=== PATIENT | male | born 1945 | race Caucasian/White ===

== ENCOUNTER → 2016-10-31 | Outpatient (CLI) | payer BC ==
[~2016-10-31] MED LIST: ACET-1311 PO; ALBUAER19 INH; ASPI81TA28 PO; AZIT-57 PO; CLB/200 PO; CLC100 PO; CLOP1TAB15 PO; CRFL PO; DOCU100C31 PO; ESCI1TAB6 PO; IMAT1TAB PO; IPRASOL4 INH; NITR0.4S UT; PANT40TA2 PO; PRAV80TA2 PO; PRED20TA PO; RANI300T2 PO; TPRSR/100 PO
--- NOTE | 2016-10-31 08:35 | DIAGNOSTIC IMAGING REPORT ---
DOUBLE CONTRAST UPPER GI SERIES CLINICAL HISTORY: A bowel pain, bloating and dysphagia. History of duodenal stenosis status post dilatation. COMPARISON STUDY: Upper GI series September 15, 2015. FLUOROSCOPY TIME: 3.2 minutes. FINDINGS: 18 fluoroscopic images were obtained. There was mild esophageal dysmotility. No esophageal mass or stricture was identified. No hiatal hernia was identified. No reflux was elicited. Gastric fold pattern was normal. Caliber of the duodenum was normal. Contrast passed freely into the jejunum. There was possible mild narrowing of the second portion of the duodenum. IMPRESSION: 1. No esophageal mass or stricture. 2. No evidence of significant duodenal obstruction. Contrast passed freely into the jejunum. Normal gastric emptying. Possible mild narrowing of the second portion of the duodenum. 3. Mild esophageal dysmotility. Electronically signed by: Vincent Berkowitz M.D. 10/31/2016 8:33 AM
== END | disposition home or self-care (01) ==
LOC: C.RAD 07:46
PROVIDERS: ATTEND Registered Nurse
DX: K21.9 Gastro-esophageal reflux disease without esophagitis (principal); K31.5 Obstruction of duodenum; R10.13 Epigastric pain

== ENCOUNTER → 2016-11-21 | Outpatient (CLI) | payer BC ==
[~2016-11-21] MED LIST changes: -AZIT-57 PO; -PANT40TA2 PO; +PRT/40 PO; +ZTHM250 PO
[2016-11-21 10:04] LABS: BASO % 0.4 %; BASO ABS # 0.02 K/uL (0-0.2); COMPLETE YES; EOS % 10.8 %; MEAN CORPUSCULAR HEMOGLOBIN 33.7 pg (25-34); MONO % 12.7 %; NEUT % 57.1 %; PLATELET COUNT 216 K/uL (130-400); RED BLOOD COUNT 4.04 M/uL (4.7-6.1); WHITE BLOOD COUNT 4.73 K/uL (4.8-10.8)
[2016-11-21 10:20] LABS: ESTIMATED AVERAGE GLUCOSE 111 mg/dl; HA1C FLAG Normal (Normal)
--- NOTE | 2016-11-25 12:37 | CODING QUERY MEDICAL NECESSITY ---
SUPPORTING DIAGNOSIS NEEDED A supporting diagnosis is required for the test/procedure performed on this patient in order for us to be reimbursed by the patient's insurance. Please provide a supporting diagnosis for the following test/procedure listed below next to the test name along with your signature. *If there is no additional diagnosis for this patient that would support the following test/procedure please document that below next to the test/procedure. Test(s)/Procedure(s) that require a supporting diagnosis: DOS 11/21 * Hba1c DIAGNOSIS: Provider Signature: Date: Thank you [facility] Information Management Once completed, please kindly fax back to [phone] For questions please call [phone]
== END | disposition home or self-care (01) ==
LOC: C.LAB 08:53
PROVIDERS: ATTEND Family Medicine
DX: I25.10 Atherosclerotic heart disease of native coronary artery without angina pectoris (principal); R73.03 Prediabetes; C92.10 Chronic myeloid leukemia, BCR/ABL-positive, not having achieved remission

== ENCOUNTER → 2016-12-16 | Day surgery (SDC) | payer BC ==
[2016-11-29 08:27] VITALS: BMI 26.0
[~2016-12-16] VITALS: Ht 175.3 cm; Wt 81.8 kg
[~2016-12-16] MED LIST changes: -CLC100 PO; +LIDOCAINE HCL 2% 2 ML VIAL (20MG/ML) ONE; +PROPOFOL IV EMULSION 10 MG/ML 20 ML VIAL IV ONE; +SODIUM CHLORIDE 0.9% 500ML 500 ML IV ONE
[2016-12-16 09:10] VITALS: Ht 175.3 cm; Wt 81.8 kg
--- NOTE | 2016-12-16 09:46 | Endo History and Physical ---
History & Physical Date of Service: Dec 16, 2016. Chief Complaint: Duodenal stricture Referring Physician: DR. WARNER History of Present Illness 71 yo CM who presents for EGD secondary to duodenal stricture. Past Medical History Angioplasty/Stent, Arthritis, Gastrointestinal Disorder, Anxiety, Reflux, High Cholesterol, Heart Disease, Hypertension, Other, [place] Past Surgical History Hx Cardiac Surgery: Yes (HEART CATH, STENT X1) Hx Internal Defibrillator: No Hx Pacemaker: No Hx Abdominal Surgery: Yes (NEDRA) Hx of Implantable Prosthesis: No Hx Post-Op Nausea and Vomiting: No Hx Cancer Surgery: No Hx Thoracic Surgery: No Hx Orthopedic: Yes (LT KNEE SCOPE) Hx Urinary Tract Surgery: No Family History None Social History Smoking Status: Former Smoker Hx Substance Use: No Hx Alcohol Use: No Allergies Coded Allergies: Levofloxacin (Verified Adverse Reaction, Intermediate, swelling, 12/16/16) Zolpidem (Verified Adverse Reaction, Unknown, Hallucinations., 12/16/16) Current Medications Reported Home Medications Medications Dose Route/Sig Max Daily Dose Days Date Category Lexapro (Escitalopram Oxalate) 5 Mg Tab 5 Mg PO DAILY PRN 11/29/16 Reported Docusate Sodium 100 Mg Cap 1 Cap PO BID PRN 11/29/16 Reported CeleBREX (Celecoxib) 200 Mg Cap 200 Mg PO DAILY PRN 11/29/16 Reported Carafate (Sucralfate) 1 Gm/10 Ml Rebeca 10 Ml PO QID 02/13/16 Reported Imatinib Mesylate 100 Mg Tab 400 Mg PO QAM 01/01/16 Reported Tylenol (Acetaminophen) 325 Mg Tab 325-650 Mg PO UD PRN 11/28/15 Reported Plavix (Clopidogrel Bisulfate) 75 Mg Tab 75 Mg PO QAM 09/29/15 Reported Zantac (Ranitidine HCl) 300 Mg Tab 300 Mg PO HS 08/25/15 Reported Pravastatin Sodium 80 Mg Tab 80 Mg PO QAM 08/25/15 Reported Nitrostat (Nitroglycerin) 0.4 Mg Sub 0.4 Mg UT UD PRN 08/25/15 Reported Duoneb (Ipratropium-Albuterol) 3 Ml Nebu 1 Treatment INH Q4H PRN 08/25/15 Reported Metoprolol Succinate ER (Metoprolol Succinate) 100 Mg Tabcr 100 Mg PO QAM 11/04/14 Reported Pantoprazole Sodium (Pantoprazole) 40 Mg Tab 40 Mg PO BID 11/04/14 Reported Ventolin Inhaler (Albuterol) Aers 1 Puff INH Q4H PRN 03/16/13 Reported Vital Signs Weight (Kilograms): 81.82 Height (Feet): 5 Height (Inches): 9 Date Time Temp Pulse Resp B/P Pulse Ox O2 Delivery O2 Flow Rate FiO2 12/16/16 09:17 36.4 79 20 143/72 99 Room Air Physical Exam General Appearance: WD/WN, no apparent distress Respiratory/Chest: Auscultation: breath sounds normal Cardiovascular: Heart Auscultation: RRR Abdomen: Bowel Sounds: normal Inspection & Palpation: soft, non-distended, no tenderness, guarding & rebound Assessment and Plan Assessment: 71 yo CM who presents for EGD secondary to duodenal stricture. Plan: Proceed with EGD.
--- NOTE | 2016-12-16 10:16 | GI REPORT ---
Procedure Date: 12/16/2016 9:36 AM Procedure: Upper GI endoscopy Indications: For therapy of duodenal stenosis Medicines: Monitored Anesthesia Care Complications: No immediate complications. Estimated Blood Loss: Estimated blood loss: none. Procedure: Pre-Anesthesia Assessment: - Prior to the procedure, a History and Physical was performed, and patient medications and allergies were reviewed. The patient's tolerance of previous anesthesia was also reviewed. The risks and benefits of the procedure and the sedation options and risks were discussed with the patient. All questions were answered, and informed consent was obtained. Prior Anticoagulants: The patient has taken Plavix (clopidogrel), last dose was 3 days prior to procedure. ASA Grade Assessment: III - A patient with severe systemic disease. After reviewing the risks and benefits, the patient was deemed in satisfactory condition to undergo the procedure. After obtaining informed consent, the endoscope was passed under direct vision. Throughout the procedure, the patient's blood pressure, pulse, and oxygen saturations were monitored continuously. The scope was introduced through the mouth, and advanced to the third part of duodenum. The upper GI endoscopy was accomplished without difficulty. The patient tolerated the procedure well. Findings: The esophagus was normal. Localized mild inflammation characterized by erythema was found in the gastric antrum. Food (residue) was found in the first part of the duodenum. Removal of food was accomplished. An acquired benign-appearing, intrinsic severe stenosis was found at 2nd part of the duodenum and was traversed. A TTS dilator was passed through the scope. Dilation with a 12-13.5-15 mm pyloric balloon dilator was performed. The dilation site was examined and showed moderate improvement in luminal narrowing. Localized mild inflammation characterized by erythema was found in the third part of the duodenum. Biopsies were taken with a cold forceps for histology. Impression: - Normal esophagus. - Gastritis. - Retained food in the duodenum. Removal was successful. - Acquired duodenal stenosis. Dilated. - Acute duodenitis. Biopsied. Recommendation: - Resume previous diet. - Continue present medications. - Await pathology results. - Repeat the upper endoscopy PRN for retreatment. - Return to primary care physician as previously scheduled. Luis Alberto Jenkins DO 12/16/2016 10:15:40 AM This report has been signed electronically. Note Initiated On: 12/16/2016 9:36 AM I attest to the content of the Intraoperative Record and orders documented therein, exceptions below
--- NOTE | 2016-12-16 10:20 | Discharge Instructions ---
Endoscopy Patient Instructions Date / Procedure(s) Performed Dec 16, 2016. EGD Allergy Information Coded Allergies: Levofloxacin (Verified Adverse Reaction, Intermediate, swelling, 12/16/16) Zolpidem (Verified Adverse Reaction, Unknown, Hallucinations., 12/16/16) Discharge Date / Findings Dec 16, 2016. Duodentitis s/p biopsies Duodenal stricture s/p dilation Food retained in duodenum s/p removal Gastritis Medication Instructions Stopped Medication(s): PLAVIX Restart Stopped Medication(s): OK to resume all medications today as prescribed. Reported Home Medications Medications Dose Route/Sig Max Daily Dose Days Date Category Lexapro (Escitalopram Oxalate) 5 Mg Tab 5 Mg PO DAILY PRN 11/29/16 Reported Docusate Sodium 100 Mg Cap 1 Cap PO BID PRN 11/29/16 Reported CeleBREX (Celecoxib) 200 Mg Cap 200 Mg PO DAILY PRN 11/29/16 Reported Carafate (Sucralfate) 1 Gm/10 Ml Rebeca 10 Ml PO QID 02/13/16 Reported Imatinib Mesylate 100 Mg Tab 400 Mg PO QAM 01/01/16 Reported Tylenol (Acetaminophen) 325 Mg Tab 325-650 Mg PO UD PRN 11/28/15 Reported Plavix (Clopidogrel Bisulfate) 75 Mg Tab 75 Mg PO QAM 09/29/15 Reported Zantac (Ranitidine HCl) 300 Mg Tab 300 Mg PO HS 08/25/15 Reported Pravastatin Sodium 80 Mg Tab 80 Mg PO QAM 08/25/15 Reported Nitrostat (Nitroglycerin) 0.4 Mg Sub 0.4 Mg UT UD PRN 08/25/15 Reported Duoneb (Ipratropium-Albuterol) 3 Ml Nebu 1 Treatment INH Q4H PRN 08/25/15 Reported Metoprolol Succinate ER (Metoprolol Succinate) 100 Mg Tabcr 100 Mg PO QAM 11/04/14 Reported Pantoprazole Sodium (Pantoprazole) 40 Mg Tab 40 Mg PO BID 11/04/14 Reported Ventolin Inhaler (Albuterol) Aers 1 Puff INH Q4H PRN 03/16/13 Reported Provider Instructions Activity Restrictions - No exercising or heavy lifting for 24 hours. - Do not drink alcohol the day of the procedure. - Do not drive a car or operate machinery until the day after the procedure. - Do not make any important decisions or sign important papers in 24 hours after the procedure. Following Day: - Return to full activity which may include returning to work/school. Diet Start your diet with liquids and light foods (jello, soup, juice, toast). Then eat your usual diet if not nauseated. Treatment For Common After Affects For mild abdominal pain, bloating, or excessive gas: - Rest - Eat lightly - Lie on right side Follow-Up Information Follow-up with DR. WARNER as scheduled Anesthesia Information What You Should Know You have had a procedure that required some medicine to reduce anxiety and discomfort. This treatment is called moderate sedation. After receiving the treatment, you may be sleepy, but you will be able to breathe on your own. The effects of the treatment may last for several hours. Follow these instructions along with Activity/Diet recommendations noted above: * Do NOT do anything where dizziness or clumsiness would be dangerous. * Rest quietly at home today, then you can be up and about tomorrow. * Have a responsible person stay with you the rest of today. * You may have had an I.V. today. If so, you may take the dressing off later today. Recommendations Call your doctor if: * Trouble breathing * Continuous vomiting for more than 24 hours * Temperature above 101 degrees * Severe abdominal pain or bloating * Pain not relieved by pain medicine ordered * There is increased drainage or redness from any incision * A large amount of rectal bleeding greater than 2-3 tablespoons. (If you had a polyp/s removed or have hemorrhoids, a small amount of blood - from the rectum is to be expected.) * You have any unanswered questions or concerns. IN THE EVENT OF A SERIOUS EMERGENCY, GO TO THE NEAREST EMERGENCY ROOM Your discharge instructions were prepared by provider Luis Alberto Jenkins. Patient Instructions Signature Page Simon Womack Patient (or Guardian) Signature/Date: I have read and understand the instructions given to me by my caregivers. Caregiver/RN/Doctor Signature/Date: The above-named patient and/or guardian has received patient instructions on this date. + Original Patient Signature Page (only) stays with chart. Please make copy for patient.
[2016-12-16 10:41] VITALS: BP 140/82; PULSE 65; O2SAT 98
--- NOTE | 2016-12-16 11:44 | Anesthesiology Progress Note ---
Anesthesia Post Op Note Date & Time Dec 16, 2016 at 11:45 Vital Signs Pain Intensity: 0 Vital Signs Past 12 Hours Date Time Temp Pulse Resp B/P Pulse Ox O2 Delivery O2 Flow Rate FiO2 12/16/16 10:41 65 18 140/82 98 Room Air 12/16/16 10:26 70 18 123/76 98 Room Air 12/16/16 10:11 85 16 93/64 96 Room Air 12/16/16 09:17 36.4 79 20 143/72 99 Room Air Notes Mental Status: alert / awake / arousable, participated in evaluation Pt Amnestic to Procedure: Yes Nausea / Vomiting: adequately controlled Pain: adequately controlled Airway Patency, RR, SpO2: stable & adequate BP & HR: stable & adequate Hydration State: stable & adequate Anesthetic Complications: no major complications apparent
== END | disposition home or self-care (01) ==
LOC: C.GI 08:59
PROVIDERS: ATTEND Internal Medicine
DX: K31.5 Obstruction of duodenum (principal); K29.70 Gastritis, unspecified, without bleeding; K29.80 Duodenitis without bleeding; I25.10 Atherosclerotic heart disease of native coronary artery without angina pectoris; I10 Essential (primary) hypertension; J44.9 Chronic obstructive pulmonary disease, unspecified; I25.2 Old myocardial infarction; Z98.890 Other specified postprocedural states; Z90.49 Acquired absence of other specified parts of digestive tract; Z87.891 Personal history of nicotine dependence; Z68.26 Body mass index [BMI] 26.0-26.9, adult; Z79.02 Long term (current) use of antithrombotics/antiplatelets

== ENCOUNTER → 2017-01-31 | Outpatient (CLI) | payer BC ==
[~2017-01-31] MED LIST changes: -ASPI81TA28 PO; +AZIT-57 PO; -LIDOCAINE HCL 2% 2 ML VIAL (20MG/ML) ONE; +PANT40TA2 PO; -PROPOFOL IV EMULSION 10 MG/ML 20 ML VIAL IV ONE; -PRT/40 PO; -SODIUM CHLORIDE 0.9% 500ML 500 ML IV ONE; -ZTHM250 PO
[2017-01-31 10:27] LABS: CHOLESTEROL/HDL RATIO 3.3
== END | disposition home or self-care (01) ==
LOC: C.LAB 07:03
PROVIDERS: ATTEND Internal Medicine Cardiovascular Disease
DX: E78.00 Pure hypercholesterolemia, unspecified (principal)

== ENCOUNTER → 2017-02-06 | Outpatient (CLI) | payer BC ==
[2017-02-06 17:15] LABS: BASO % 0.4 %; BASO ABS # 0.03 K/uL (0-0.2); COMPLETE YES; EOS % 8.3 %; HEMATOCRIT 38.6 % (42-52); IG% 0.1 %; MEAN CELL VOLUME 101.3 fL (80-100); MEAN CORPUSCULAR HEMOGLOBIN 35.4 pg (25-34); MEAN PLATELET VOLUME 9.4 fL (7.4-10.4); MONO % 9.5 %; NEUT % 68.7 %; PLATELET COUNT 240 K/uL (130-400); RED BLOOD COUNT 3.81 M/uL (4.7-6.1); WHITE BLOOD COUNT 7.69 K/uL (4.8-10.8)
--- NOTE | 2017-02-06 17:30 | DIAGNOSTIC IMAGING REPORT ---
CHEST 2 VIEWS ROUTINE CLINICAL HISTORY: Cough and shortness of breath. COMPARISON STUDY: Chest radiograph August 24, 2016. FINDINGS: Diffuse interstitial thickening, greater within left lung, is unchanged since prior exam. This is consistent with pulmonary fibrosis. Left lung volume loss is noted. There is no pneumothorax or pleural effusion. There is no superimposed pneumonia. Moderate cardiomegaly is unchanged. IMPRESSION: 1. No change in appearance of the chest with interstitial thickening, greater within the left lung. The findings reflect pulmonary fibrosis. No superimposed consolidation. 2. Stable cardiomegaly. Electronically signed by: Vincent Berkowitz M.D. 02/06/2017 5:28 PM Dictated Date/Time: 02/06/2017 5:26 PM
[2017-02-06 17:38] LABS: BLOOD UREA NITROGEN 11 mg/dl (7-18); BUN/CREATININE RATIO 7.7 (10-20); CALCIUM 8.8 mg/dl (8.5-10.1); CARBON DIOXIDE 33 mmol/L (21-32); CHLORIDE 108 mmol/L (98-107); GLUCOSE 76 mg/dl (70-99); SODIUM 144 mmol/L (136-145)
== END | disposition home or self-care (01) ==
LOC: C.RAD 16:49
PROVIDERS: ATTEND Nurse Practitioner Family
DX: J45.901 Unspecified asthma with (acute) exacerbation (principal)

== ENCOUNTER → 2017-04-07 | Day surgery (SDC) | payer BC ==
[2017-03-03 08:48] VITALS: BMI 26.0
[~2017-04-07] VITALS: Ht 175.3 cm; Wt 81.8 kg
[~2017-04-07] MED LIST changes: +ATROPINE SULFATE 0.1 MG/ML 5ML SYR IV PRN; +EpHEDrine SULFATE INJ 50 MG/ML AMP IV PRN; +LIDOCAINE HCL 2% 2 ML VIAL (20MG/ML) ONE; +PROPOFOL IV EMULSION 10 MG/ML 20 ML VIAL IV ONE; +SODIUM CHLORIDE 0.9% 500ML 500 ML IV ONE
[2017-04-07 14:53] VITALS: TEMP 36.3; Ht 175.3 cm; Wt 81.8 kg
--- NOTE | 2017-04-07 15:18 | Endo History and Physical ---
History & Physical Date of Service: Apr 07, 2017. Chief Complaint: Pyloric stenosis Referring Physician: DR VENUS LYONS History of Present Illness 71 yo CM who presents for EGD secondary to pyloric stenosis. Past Medical History Angioplasty/Stent, Arthritis, Gastrointestinal Disorder, Anxiety, Reflux, High Cholesterol, Heart Disease, Hypertension, Other, [place] Past Surgical History Hx Cardiac Surgery: Yes (HEART CATH, STENT X1) Hx Internal Defibrillator: No Hx Pacemaker: No Hx Abdominal Surgery: Yes (NEDRA) Hx of Implantable Prosthesis: No Hx Post-Op Nausea and Vomiting: No Hx Cancer Surgery: No Hx Thoracic Surgery: No Hx Orthopedic: Yes (LT KNEE SCOPE) Hx Urinary Tract Surgery: No Family History None Social History Smoking Status: Former Smoker Hx Substance Use: No Hx Alcohol Use: No Allergies Coded Allergies: Levofloxacin (Verified Adverse Reaction, Intermediate, swelling, 04/07/17) Zolpidem (Verified Adverse Reaction, Unknown, Hallucinations., 04/07/17) Current Medications Reported Home Medications Medications Dose Route/Sig Max Daily Dose Days Date Category Lexapro (Escitalopram Oxalate) 5 Mg Tab 5 Mg PO DAILY PRN 11/29/16 Reported Docusate Sodium 100 Mg Cap 1 Cap PO BID PRN 11/29/16 Reported CeleBREX (Celecoxib) 200 Mg Cap 200 Mg PO DAILY PRN 11/29/16 Reported Carafate (Sucralfate) 1 Gm/10 Ml Rebeca 10 Ml PO QID 02/13/16 Reported Imatinib Mesylate 100 Mg Tab 400 Mg PO QAM 01/01/16 Reported Tylenol (Acetaminophen) 325 Mg Tab 325-650 Mg PO UD PRN 11/28/15 Reported Plavix (Clopidogrel Bisulfate) 75 Mg Tab 75 Mg PO QAM 09/29/15 Reported Zantac (Ranitidine HCl) 300 Mg Tab 300 Mg PO HS 08/25/15 Reported Pravastatin Sodium 80 Mg Tab 80 Mg PO QAM 08/25/15 Reported Nitrostat (Nitroglycerin) 0.4 Mg Sub 0.4 Mg UT UD PRN 08/25/15 Reported Duoneb (Ipratropium-Albuterol) 3 Ml Nebu 1 Treatment INH Q4H PRN 08/25/15 Reported Metoprolol Succinate ER (Metoprolol Succinate) 100 Mg Tabcr 100 Mg PO QAM 11/04/14 Reported Pantoprazole Sodium (Pantoprazole) 40 Mg Tab 40 Mg PO BID 11/04/14 Reported Ventolin Inhaler (Albuterol) Aers 1 Puff INH Q4H PRN 03/16/13 Reported Vital Signs Weight (Kilograms): 81.82 Height (Feet): 5 Height (Inches): 9 Date Time Temp Pulse Resp B/P (MAP) Pulse Ox O2 Delivery O2 Flow Rate FiO2 04/07/17 15:08 70 20 94/43 (60) 95 04/07/17 14:53 36.3 62 20 141/83 (102) 95 Physical Exam General Appearance: WD/WN, no apparent distress Respiratory/Chest: Auscultation: breath sounds normal Cardiovascular: Heart Auscultation: RRR Abdomen: Bowel Sounds: normal Inspection & Palpation: soft, non-distended, no tenderness, guarding & rebound Assessment and Plan Assessment: 71 yo CM who presents for EGD secondary to pyloric stenosis. Plan: Proceed with EGD.
--- NOTE | 2017-04-07 16:35 | Discharge Instructions ---
Endoscopy Patient Instructions Date / Procedure(s) Performed Apr 07, 2017. EGD Allergy Information Coded Allergies: Levofloxacin (Verified Adverse Reaction, Intermediate, swelling, 04/07/17) Zolpidem (Verified Adverse Reaction, Unknown, Hallucinations., 04/07/17) Discharge Date / Findings Apr 07, 2017. Duodenal stricture s/p dilation Hiatal hernia Medication Instructions OK to resume all medications today as prescribed Medications Dose Route/Sig Max Daily Dose Days Date Category Lexapro (Escitalopram Oxalate) 5 Mg Tab 5 Mg PO DAILY PRN 11/29/16 Reported Docusate Sodium 100 Mg Cap 1 Cap PO BID PRN 11/29/16 Reported CeleBREX (Celecoxib) 200 Mg Cap 200 Mg PO DAILY PRN 11/29/16 Reported Carafate (Sucralfate) 1 Gm/10 Ml Rebeca 10 Ml PO QID 02/13/16 Reported Imatinib Mesylate 100 Mg Tab 400 Mg PO QAM 01/01/16 Reported Tylenol (Acetaminophen) 325 Mg Tab 325-650 Mg PO UD PRN 11/28/15 Reported Plavix (Clopidogrel Bisulfate) 75 Mg Tab 75 Mg PO QAM 09/29/15 Reported Zantac (Ranitidine HCl) 300 Mg Tab 300 Mg PO HS 08/25/15 Reported Pravastatin Sodium 80 Mg Tab 80 Mg PO QAM 08/25/15 Reported Nitrostat (Nitroglycerin) 0.4 Mg Sub 0.4 Mg UT UD PRN 08/25/15 Reported Duoneb (Ipratropium-Albuterol) 3 Ml Nebu 1 Treatment INH Q4H PRN 08/25/15 Reported Metoprolol Succinate ER (Metoprolol Succinate) 100 Mg Tabcr 100 Mg PO QAM 11/04/14 Reported Pantoprazole Sodium (Pantoprazole) 40 Mg Tab 40 Mg PO BID 11/04/14 Reported Ventolin Inhaler (Albuterol) Aers 1 Puff INH Q4H PRN 03/16/13 Reported Provider Instructions Activity Restrictions - No exercising or heavy lifting for 24 hours. - Do not drink alcohol the day of the procedure. - Do not drive a car or operate machinery until the day after the procedure. - Do not make any important decisions or sign important papers in 24 hours after the procedure. Following Day: - Return to full activity which may include returning to work/school. Diet Start your diet with liquids and light foods (jello, soup, juice, toast). Then eat your usual diet if not nauseated. Treatment For Common After Affects For mild abdominal pain, bloating, or excessive gas: - Rest - Eat lightly - Lie on right side Follow-Up Information Follow-up with DR VENUS LYONS as scheduled Anesthesia Information What You Should Know You have had a procedure that required some medicine to reduce anxiety and discomfort. This treatment is called moderate sedation. After receiving the treatment, you may be sleepy, but you will be able to breathe on your own. The effects of the treatment may last for several hours. Follow these instructions along with Activity/Diet recommendations noted above: * Do NOT do anything where dizziness or clumsiness would be dangerous. * Rest quietly at home today, then you can be up and about tomorrow. * Have a responsible person stay with you the rest of today. * You may have had an I.V. today. If so, you may take the dressing off later today. Recommendations Call your doctor if: * Trouble breathing * Continuous vomiting for more than 24 hours * Temperature above 101 degrees * Severe abdominal pain or bloating * Pain not relieved by pain medicine ordered * There is increased drainage or redness from any incision * A large amount of rectal bleeding greater than 2-3 tablespoons. (If you had a polyp/s removed or have hemorrhoids, a small amount of blood - from the rectum is to be expected.) * You have any unanswered questions or concerns. IN THE EVENT OF A SERIOUS EMERGENCY, GO TO THE NEAREST EMERGENCY ROOM Your discharge instructions were prepared by provider Luis Alberto Jenkins. Patient Instructions Signature Page Simon Womack Patient (or Guardian) Signature/Date: I have read and understand the instructions given to me by my caregivers. Caregiver/RN/Doctor Signature/Date: The above-named patient and/or guardian has received patient instructions on this date. + Original Patient Signature Page (only) stays with chart. Please make copy for patient.
--- NOTE | 2017-04-07 16:38 | GI REPORT ---
Procedure Date: 04/07/2017 3:57 PM Procedure: Upper GI endoscopy Indications: For therapy of duodenal stenosis Medicines: Monitored Anesthesia Care Complications: No immediate complications. Estimated Blood Loss: Estimated blood loss: none. Procedure: Pre-Anesthesia Assessment: - Prior to the procedure, a History and Physical was performed, and patient medications and allergies were reviewed. The patient's tolerance of previous anesthesia was also reviewed. The risks and benefits of the procedure and the sedation options and risks were discussed with the patient. All questions were answered, and informed consent was obtained. Prior Anticoagulants: The patient has taken Plavix (clopidogrel), last dose was 1 day prior to procedure. ASA Grade Assessment: III - A patient with severe systemic disease. After reviewing the risks and benefits, the patient was deemed in satisfactory condition to undergo the procedure. After obtaining informed consent, the endoscope was passed under direct vision. Throughout the procedure, the patient's blood pressure, pulse, and oxygen saturations were monitored continuously. The Scope was introduced through the anus and advanced to the second part of duodenum. After obtaining informed consent, the endoscope was passed under direct vision. Throughout the procedure, the patient's blood pressure, pulse, and oxygen saturations were monitored continuously. The upper GI endoscopy was accomplished without difficulty. The patient tolerated the procedure well. Findings: The esophagus was normal. A small hiatus hernia was present. An acquired benign-appearing, intrinsic moderate stenosis was found in the first part of the duodenum and was traversed. A TTS dilator was passed through the scope. Dilation with a 12-13.5-15 mm and a 15-16.5-18 mm pyloric balloon dilator was performed. The dilation site was examined and showed moderate improvement in luminal narrowing. Impression: - Normal esophagus. - Small hiatus hernia. - Acquired duodenal stenosis. Dilated. - No specimens collected. Recommendation: - Resume previous diet. - Continue present medications. - Repeat the upper endoscopy PRN for retreatment. - Return to primary care physician as previously scheduled. Luis Alberto Jenkins DO 04/07/2017 4:37:53 PM This report has been signed electronically. Note Initiated On: 04/07/2017 3:57 PM I attest to the content of the Intraoperative Record and orders documented therein, exceptions below
[2017-04-07 16:47] VITALS: BP 130/80; PULSE 58; O2SAT 97
--- NOTE | 2017-04-07 16:56 | Anesthesiology Progress Note ---
Anesthesia Post Op Note Date & Time Apr 07, 2017 at 16:56 Vital Signs Pain Intensity: 0 Vital Signs Past 12 Hours Date Time Temp Pulse Resp B/P (MAP) Pulse Ox O2 Delivery O2 Flow Rate FiO2 04/07/17 16:47 58 20 130/80 (97) 97 Room Air 04/07/17 16:38 72 20 118/79 (92) 98 Room Air 04/07/17 16:32 73 20 107/76 (86) 97 Room Air 04/07/17 15:08 70 20 94/43 (60) 95 04/07/17 14:53 36.3 62 20 141/83 (102) 95 Notes Mental Status: alert / awake / arousable, participated in evaluation Pt Amnestic to Procedure: Yes Nausea / Vomiting: adequately controlled Pain: adequately controlled Airway Patency, RR, SpO2: stable & adequate BP & HR: stable & adequate Hydration State: stable & adequate Anesthetic Complications: no major complications apparent
== END | disposition home or self-care (01) ==
LOC: C.GI 14:34
PROVIDERS: ATTEND Internal Medicine
DX: K31.5 Obstruction of duodenum (principal); K31.1 Adult hypertrophic pyloric stenosis; K44.9 Diaphragmatic hernia without obstruction or gangrene; J44.9 Chronic obstructive pulmonary disease, unspecified; I10 Essential (primary) hypertension; Z98.890 Other specified postprocedural states; E78.00 Pure hypercholesterolemia, unspecified; K21.9 Gastro-esophageal reflux disease without esophagitis; I25.2 Old myocardial infarction; Z87.891 Personal history of nicotine dependence; Z90.49 Acquired absence of other specified parts of digestive tract; Z88.1 Allergy status to other antibiotic agents; Z79.02 Long term (current) use of antithrombotics/antiplatelets; Z79.899 Other long term (current) drug therapy

== ENCOUNTER → 2017-05-26 | Outpatient (CLI) | payer BC ==
[~2017-05-26] MED LIST changes: -ATROPINE SULFATE 0.1 MG/ML 5ML SYR IV PRN; -AZIT-57 PO; -EpHEDrine SULFATE INJ 50 MG/ML AMP IV PRN; -LIDOCAINE HCL 2% 2 ML VIAL (20MG/ML) ONE; -PANT40TA2 PO; -PROPOFOL IV EMULSION 10 MG/ML 20 ML VIAL IV ONE; +PRT/40 PO; -SODIUM CHLORIDE 0.9% 500ML 500 ML IV ONE; +ZTHM250 PO
[2017-05-26 09:31] LABS: BASO % 0.3 %; BASO ABS # 0.02 K/uL (0-0.2); COMPLETE YES; EOS % 9.7 %; HEMATOCRIT 41.8 % (42-52); IG% 0.2 %; LYMPH % 12.6 %; LYMPH ABS # 0.75 K/uL (1.2-3.4); MEAN CELL VOLUME 97.7 fL (80-100); MEAN CORPUSCULAR HEMOGLOBIN 31.8 pg (25-34); MEAN CORPUSCULAR HGB CONC 32.5 g/dl (32-36); MEAN PLATELET VOLUME 10.1 fL (7.4-10.4); MONO % 9.4 %; NEUT % 67.8 %; PLATELET COUNT 275 K/uL (130-400); RED BLOOD COUNT 4.28 M/uL (4.7-6.1); WHITE BLOOD COUNT 5.95 K/uL (4.8-10.8)
[2017-05-26 09:41] LABS: ALT/SGPT 29 U/L (12-78); AST/SGOT 20 U/L (15-37); BLOOD UREA NITROGEN 11 mg/dl (7-18); BUN/CREATININE RATIO 8.7 (10-20); CALCIUM 8.9 mg/dl (8.5-10.1); CARBON DIOXIDE 32 mmol/L (21-32); CHLORIDE 105 mmol/L (98-107); GLUCOSE 94 mg/dl (70-99); MAGNESIUM 1.9 mg/dl (1.8-2.4); POTASSIUM 4.9 mmol/L (3.5-5.1); SODIUM 140 mmol/L (136-145)
[2017-05-26 09:45] LABS: ALB/GLOB RATIO 1.1 (0.9-2); ALKALINE PHOSPHATASE 76 U/L (45-117); CHOLESTEROL 126 mg/dl (0-200); CHOLESTEROL/HDL RATIO 3.6; HDL CHOLESTEROL 35 mg/dl; LDL CHOLESTEROL CALCULATED 58 mg/dl; TRIGLYCERIDES 167 mg/dl (0-150); VERY LOW DENSITY LIPOPROT CALC 33 mg/dl
[2017-05-26 09:58] LABS: ESTIMATED AVERAGE GLUCOSE 111 mg/dl; HA1C FLAG Normal (Normal)
--- NOTE | 2017-06-16 09:43 | CODING QUERY MEDICAL NECESSITY ---
SUPPORTING DIAGNOSIS NEEDED Dr. Jefferson, A supporting diagnosis is required for the test/procedure performed on this patient in order for us to be reimbursed by the patient's insurance. Please provide a supporting diagnosis for the following test/procedure listed below next to the test name along with your signature. *If there is no additional diagnosis for this patient that would support the following test/procedure please document that below next to the test/procedure. Test(s)/Procedure(s) that require a supporting diagnosis: * [id number] GLYCATED HEMOGLOBIN DIAGNOSIS: DATE OF SERVICE: 05/26/17 Provider Signature: Date: Thank you Clifford Davidson [facility] Information Management Once completed, please kindly fax back to [phone] For questions please call [phone]
== END | disposition home or self-care (01) ==
LOC: C.LAB 06:56
PROVIDERS: ATTEND Family Medicine
DX: I10 Essential (primary) hypertension (principal); R73.03 Prediabetes

== ENCOUNTER 2017-07-04 16:00 | Emergency (ER) | payer BC ==
[~2017-07-04] VITALS: Ht 175.3 cm; Wt 75.8 kg
[~2017-07-04 16:00] MED LIST changes: -PRED20TA PO; -ZTHM250 PO
[2017-07-04 16:09] VITALS: TEMP 36.4; Ht 175.3 cm; Wt 75.8 kg
[2017-07-04] MEDS ORDERED: SODIUM CHLORIDE 0.9% 1000ML 1,000 ML IV STA (16:50)
--- NOTE | 2017-07-04 16:58 | EMERGENCY ROOM VISIT NOTE ---
History Report prepared by Estelaibraphael: Julianne Kelly Under the Supervision of: Dr. Manjinder Hogan M.D. First contact with patient: 16:46 Chief Complaint: OTHER COMPLAINT Stated Complaint: CHEST CONGESTION,RUNNY NOSE,COUGH,SNEEZING History of Present Illness The patient is a 71 year old male who presents to the Emergency Room with complaints of worsening chest congestion and tightness beginning three days ago. 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 He also notes shortness of breath, runny nose, cough and watery eyes. He denies any fever or nausea. The patient has taken Sudafed with no relief. The patient was told to come to the ED by his PCP. The patient has episodes like this often and is usually put on prednisone and a antibiotic. Source of History: patient Onset: 3 days ago Position: chest Timing: worsening Associated Symptoms: + cough, + SOB, No fevers, No nausea Note: Pt notes runny nose and watery eyes. Review of Systems See HPI for pertinent positives and negatives. A total of ten systems were reviewed and were otherwise negative. 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 Family History FHx: heart disease Social History Smoking Status: Never Smoker Alcohol Use: none Drug Use: none Marital Status: single, Housing Status: lives with family Occupation Status: unemployed, retired Current/Historical Medications Scheduled Azithromycin (Azithromycin), 1 TAB PO DAILY Clopidogrel (Plavix), 75 MG PO QAM Metoprolol Succinate (Metoprolol Succinate ER), 100 MG PO QAM Pantoprazole (Pantoprazole Sodium), 40 MG PO BID Pravastatin Sodium (Pravastatin Sodium), 80 MG PO QAM Prednisone (Prednisone), 3 TAB PO DAILY Ranitidine (Zantac), 300 MG PO HS Sucralfate (Carafate), 10 ML PO QID Scheduled PRN Acetaminophen (Tylenol), 325-650 MG PO UD PRN for Pain or Fever Albuterol Inhaler (Ventolin Inhaler), 1 PUFF INH Q4H PRN for SOB/Wheezing Celecoxib (CeleBREX), 200 MG PO DAILY PRN for Pain Docusate Sodium (Docusate Sodium), 1 CAP PO BID PRN for Constipation Escitalopram Oxalate (Lexapro), 5 MG PO DAILY PRN for Anxiety Ipratropium-Albuterol (Duoneb), 1 TREATMENT INH Q4H PRN for Wheezing Nitroglycerin (Nitrostat), 0.4 MG UT UD PRN for Chest Pain Allergies Coded Allergies: Levofloxacin (Verified Adverse Reaction, Intermediate, swelling, 07/04/17) Zolpidem (Verified Adverse Reaction, Unknown, Hallucinations., 07/04/17) Physical Exam Vital Signs Date Time Temp Pulse Resp B/P (MAP) Pulse Ox O2 Delivery O2 Flow Rate FiO2 07/04/17 19:25 77 20 114/87 94 07/04/17 18:34 74 20 108/67 96 Room Air 07/04/17 17:32 96 07/04/17 17:29 63 20 95 Room Air 07/04/17 17:26 61 07/04/17 16:09 36.4 97 20 121/68 95 Room Air Physical Exam GENERAL: Awake, alert, well-appearing, in no distress HENT: Normocephalic, atraumatic. Oropharynx unremarkable. Dry MM. EYES: Normal conjunctiva. Sclera non-icteric. NECK: Supple. No nuchal rigidity. FROM. No JVD. RESPIRATORY: Diffuse wheezing, diminished breath sounds at bases. CARDIAC: Regular rate, normal rhythm. Extremities warm and well perfused. Pulses equal. ABDOMEN: Soft, non-distended. No tenderness to palpation. No rebound or guarding. No masses. RECTAL: Deferred. MUSCULOSKELETAL: Chest examination reveals no tenderness. The back is symmetrical on inspection without obvious abnormality. There is no CVA tenderness to palpation. No joint edema. LOWER EXTREMITIES: Calves are equal size bilaterally and non-tender. No edema. No discoloration. NEURO: Normal sensorium. No sensory or motor deficits noted. SKIN: No rash or jaundice noted. Medical Decision & Procedures ER Provider Diagnostic Interpretation: Radiology results as stated below per my review and radiologist interpretation: CHEST ONE VIEW PORTABLE FINDINGS: No evidence for an acute or interval process. Diffuse left hemithoracic and to lesser extent upper right lung parenchymal fibrotic changes similar. Chronic elevation left hemidiaphragm. IMPRESSION: Chronic asymmetric parenchymal fibrosis. No acute process. No change from the prior exam. The above report was generated using voice recognition software. It may contain grammatical, syntax or spelling errors. Electronically signed by: Fred Franklin M.D. Laboratory Results 07/04/17 17:25 Red Blood Count 4.20, Mean Corpuscular Volume 98.8, Mean Corpuscular Hemoglobin 31.4, Mean Corpuscular Hemoglobin Concent 31.8, Mean Platelet Volume 9.5, Neutrophils (%) (Auto) 65.0, Lymphocytes (%) (Auto) 13.7, Monocytes (%) (Auto) 11.6, Eosinophils (%) (Auto) 8.5, Basophils (%) (Auto) 0.9, Neutrophils # (Auto ) 4.98, Lymphocytes # (Auto) 1.05, Monocytes # (Auto) 0.89, Eosinophils # (Auto ) 0.65, Basophils # (Auto) 0.07 07/04/17 17:25 Test 07/04/17 17:25 White Blood Count 7.66 K/uL (4.8-10.8) Red Blood Count 4.20 M/uL (4.7-6.1) Hemoglobin 13.2 g/dL (14.0-18.0) Hematocrit 41.5 % (42-52) Mean Corpuscular Volume 98.8 fL (80-100) Mean Corpuscular Hemoglobin 31.4 pg (25-34) Mean Corpuscular Hemoglobin Concent 31.8 g/dl (32-36) Platelet Count 278 K/uL (130-400) Mean Platelet Volume 9.5 fL (7.4-10.4) Neutrophils (%) (Auto) 65.0 % Lymphocytes (%) (Auto) 13.7 % Monocytes (%) (Auto) 11.6 % Eosinophils (%) (Auto) 8.5 % Basophils (%) (Auto) 0.9 % Neutrophils # (Auto) 4.98 K/uL (1.4-6.5) Lymphocytes # (Auto) 1.05 K/uL (1.2-3.4) Monocytes # (Auto) 0.89 K/uL (0.11-0.59) Eosinophils # (Auto) 0.65 K/uL (0-0.5) Basophils # (Auto) 0.07 K/uL (0-0.2) RDW Standard Deviation 54.9 fL (36.4-46.3) RDW Coefficient of Variation 15.1 % (11.5-14.5) Immature Granulocyte % (Auto) 0.3 % Immature Granulocyte # (Auto) 0.02 K/uL (0.00-0.02) Anion Gap 2.0 mmol/L (3-11) Est Creatinine Clear Calc Drug Dose 52.9 ml/min Estimated GFR () 64.1 Estimated GFR (Non- 55.3 BUN/Creatinine Ratio 8.1 (10-20) Calcium Level 8.2 mg/dl (8.5-10.1) Troponin I < 0.015 ng/ml (0-0.045) Pro-B-Type Natriuretic Peptide 490 pg/ml (0-900) Laboratory results reviewed by me Medications Administered Medications (Trade) Dose Ordered Sig/Sophy Route Start Time Stop Time Status Last Admin Dose Admin Albuterol/ Ipratropium (Duoneb) 12 ml ONE ONCE INH 07/04/17 17:00 07/04/17 17:01 DC 07/04/17 17:25 12 ML Prednisone (PredniSONE TAB) 60 mg NOW STAT PO 07/04/17 16:50 07/04/17 16:55 DC 07/04/17 17:18 60 MG Azithromycin (Zithromax Tab) 500 mg NOW ONCE PO 07/04/17 17:00 07/04/17 17:01 DC 07/04/17 17:17 500 MG Sodium Chloride 1,000 ml @ 999 mls/hr Q1H1M STAT IV 07/04/17 16:50 07/04/17 17:50 DC 07/04/17 17:21 999 MLS/HR ECG Indication: chest pain Rate (beats per minute): 59 Rhythm: sinus bradycardia Findings: RBBB, no acute ischemic change Comparison ECG Date: 02/13/16 Change: no significant change ED Course 1648: The patient was evaluated in room C8. A complete history and physical exam was performed. 1650: Sodium Chloride 1000 ml @ 999 mls/hr IV, Prednisone 60 mg PO. 1700: Azithromycin 500 mg PO, Duoneb 12 ml INH. 1813: I reevaluated the patient he is feeling better and is penitentiary through nebulizer. Medical Decision I reviewed the patient's past medical history, medications, and the nursing notes as described above. Differential diagnosis: COPD exacerbation, pneumonia, bronchitis, ACS, CHF, and PE. The patient is a71yo gentleman with a pmhx of Silicosis/COPD who presents to the ED with worsening cough and congestion per HPI. On arrival the patient in in NAD, AFVSS. 95% RA. On exam has diminished BS with scattered wheezes. CXR and EKG unremarkable. Trop negative in the setting of several days of constant sx. No JVD or LE edema. BNP wnl. Labs otherwise, unremarkable including wbc wnl. Patient was given duo neb, steroids and azithro and reported significant improvement and requesting d/c. Patient with improved air movement. Medication Reconcilliation Current Medication List: was personally reviewed by me Blood Pressure Screening Patient's blood pressure: Normal blood pressure Impression Primary Impression: COPD exacerbation Scribe Attestation The scribe's documentation has been prepared under my direction and personally reviewed by me in its entirety. I confirm that the note above accurately reflects all work, treatment, procedures, and medical decision making performed by me. Departure Information Dispostion Home / Self-Care Prescriptions Prednisone (Prednisone) 20 Mg Tab 3 TAB PO DAILY for 4 Days, #12 TAB FOR 4 DAYS Prov: Manjinder Hogan M.D. 07/04/17 Azithromycin (Azithromycin) 250 Mg Tab 1 TAB PO DAILY for 4 Days, #4 TABS Prov: Manjinder Hogan M.D. 07/04/17 Referrals Lenora Jefferson DO (PCP) Patient Instructions COPD N[facility], [facility] Additional Instructions Please follow up with your primary care physician in the next 1-3 days for reevaluation. You likely are having an exacerbation of your COPD. Otherwise, your exam, EKG, chest x-ray, lab results did not show signs of an emergent condition at this time. Take prednisone and azithromycin as directed. Take your home inhalers every 4 hours for the next 2 days and as needed thereafter. Return to the emergency department for worsening symptoms as described in the accompanying instructions.
[2017-07-04] MEDS ORDERED: ALBUT/IPRATROP 3MG/0.5MG NEB 3 ML VIAL INH ONE (17:00)
[2017-07-04] MEDS ORDERED: AZITHROMYCIN 250 MG TAB PO ONE (17:00)
--- NOTE | 2017-07-04 17:17 | DIAGNOSTIC IMAGING REPORT ---
CHEST ONE VIEW PORTABLE CLINICAL HISTORY: CHEST PAIN dyspnea COMPARISON STUDY: 02/06/2017 FINDINGS: No evidence for an acute or interval process. Diffuse left hemithoracic and to lesser extent upper right lung parenchymal fibrotic changes similar. Chronic elevation left hemidiaphragm. IMPRESSION: Chronic asymmetric parenchymal fibrosis. No acute process. No change from the prior exam. The above report was generated using voice recognition software. It may contain grammatical, syntax or spelling errors. Electronically signed by: Fred Franklin M.D. 07/04/2017 5:16 PM Dictated Date/Time: 07/04/2017 5:15 PM
[2017-07-04 17:29] VITALS: PULSE 63; O2SAT 95
[2017-07-04 17:32] VITALS: O2SAT 96
[2017-07-04 17:36] LABS: BASO % 0.9 %; BASO ABS # 0.07 K/uL (0-0.2); COMPLETE YES; EOS % 8.5 %; HEMATOCRIT 41.5 % (42-52); IG% 0.3 %; LYMPH % 13.7 %; LYMPH ABS # 1.05 K/uL (1.2-3.4); MEAN CELL VOLUME 98.8 fL (80-100); MEAN CORPUSCULAR HEMOGLOBIN 31.4 pg (25-34); MEAN CORPUSCULAR HGB CONC 31.8 g/dl (32-36); MEAN PLATELET VOLUME 9.5 fL (7.4-10.4); MONO % 11.6 %; PLATELET COUNT 278 K/uL (130-400); WHITE BLOOD COUNT 7.66 K/uL (4.8-10.8)
[2017-07-04 18:01] LABS: BLOOD UREA NITROGEN 11 mg/dl (7-18); BUN/CREATININE RATIO 8.1 (10-20); CALCIUM 8.2 mg/dl (8.5-10.1); CARBON DIOXIDE 31 mmol/L (21-32); CHLORIDE 109 mmol/L (98-107); GLUCOSE 105 mg/dl (70-99); POTASSIUM 3.9 mmol/L (3.5-5.1); SODIUM 142 mmol/L (136-145)
[2017-07-04] MEDS ORDERED: PRED20TA PO (19:10)
[2017-07-04] MEDS ORDERED: ZTHM250 PO (19:10)
[2017-07-04 19:25] VITALS: BP 114/87; PULSE 77; O2SAT 94
== END 2017-07-04 19:24 | disposition home or self-care (01) ==
LOC: C.EDB 16:01 → C.EDC 19:24
DX: J44.9 Chronic obstructive pulmonary disease, unspecified (principal); I21.3 ST elevation (STEMI) myocardial infarction of unspecified site; C91.10 Chronic lymphocytic leukemia of B-cell type not having achieved remission; K21.9 Gastro-esophageal reflux disease without esophagitis; E78.5 Hyperlipidemia, unspecified; I10 Essential (primary) hypertension; Z82.49 Family history of ischemic heart disease and other diseases of the circulatory system

== ENCOUNTER → 2017-11-26 | Outpatient (CLI) | payer BC ==
[~2017-11-26] MED LIST changes: +AZIT-57 PO; -IMAT1TAB PO; +PANT40TA2 PO; -PRT/40 PO
--- NOTE | 2017-11-26 15:33 | DIAGNOSTIC IMAGING REPORT ---
CHEST 2 VIEWS ROUTINE CLINICAL HISTORY: J45.901 Asthmatic bronchitis with [id number] COMPARISON STUDY: 07/04/2017 FINDINGS: The cardiac and mediastinal contours remain stable. There is left lung volume loss. There is extensive interstitial pulmonary fibrotic change left greater than right, similar to the preceding study[ IMPRESSION: Stable bilateral pulmonary fibrosis. Stable left lung volume loss. Electronically signed by: Wyatt Webber M.D. 11/26/2017 3:32 PM Dictated Date/Time: 11/26/2017 3:31 PM
== END | disposition home or self-care (01) ==
LOC: C.RAD1850 15:24
PROVIDERS: ATTEND Nurse Practitioner Family
DX: J45.901 Unspecified asthma with (acute) exacerbation (principal)

== ENCOUNTER 2018-02-15 17:15 | Inpatient (IN) | payer BC, OTHER ==
[~2018-02-15] VITALS: Ht 175.3 cm; Wt 77.8 kg
[2018-02-15] MEDS ORDERED: ASPIRIN 81 MG CHEW PO STA (17:37)
[2018-02-15] MEDS ORDERED: ALUMINUM/MAGNESIUM SUSP 30 ML UDC PO STA (17:37)
--- NOTE | 2018-02-15 17:48 | DIAGNOSTIC IMAGING REPORT ---
CHEST ONE VIEW PORTABLE CLINICAL HISTORY: CHEST PAIN dyspnea COMPARISON STUDY: 11/26/2017 FINDINGS: Moderate stable cardiomegaly. Diffuse bilateral pulmonary fibrosis. Mild chronic elevation left hemidiaphragm. No well-defined superimposed infiltrate. IMPRESSION: 1. Stable cardiomegaly. 2. Diffuse left and to a lesser extent right hemithoracic chronic parenchymal fibrosis. 3. No superimposed infiltrate The above report was generated using voice recognition software. It may contain grammatical, syntax or spelling errors. Electronically signed by: Fred Franklin M.D. 02/15/2018 5:47 PM Dictated Date/Time: 02/15/2018 5:46 PM
[2018-02-15 18:07] LABS: BASO % 3.9 %; BASO ABS # 0.39 K/uL (0-0.2); HEMATOCRIT 43.1 % (42-52); HEMOGLOBIN 14.7 g/dL (14.0-18.0); IG# 0.04 K/uL (0.00-0.02); LYMPH % 9.4 %; LYMPH ABS # 0.94 K/uL (1.2-3.4); MEAN CELL VOLUME 95.1 fL (80-100); MEAN CORPUSCULAR HEMOGLOBIN 32.5 pg (25-34); MEAN CORPUSCULAR HGB CONC 34.1 g/dl (32-36); MONO % 10.5 %; MONO ABS # 1.06 K/uL (0.11-0.59); NEUT % 69.8 %; NEUT ABS # 7.02 K/uL (1.4-6.5); PLATELET COUNT 318 K/uL (130-400); RED CELL DISTRIBUTION WIDTH CV 14.2 % (11.5-14.5); RED CELL DISTRIBUTION WIDTH SD 49.5 fL (36.4-46.3); WHITE BLOOD COUNT 10.05 K/uL (4.8-10.8)
[2018-02-15] MEDS ORDERED: PLV75 PO (18:09)
[2018-02-15] MEDS ORDERED: SNG10 PO (18:09)
[2018-02-15] MEDS ORDERED: SUCR1TAB PO (18:09)
[2018-02-15] MEDS ORDERED: CELE1CAP30 PO (18:09)
[2018-02-15] MEDS ORDERED: AZEL0.1S2 NAE (18:09)
[2018-02-15] MEDS ORDERED: FLUO10CA24 PO (18:09)
[2018-02-15] MEDS ORDERED: IPRA1AER2 INH (18:09)
[2018-02-15] MEDS ORDERED: RANI300T PO (18:09)
[2018-02-15] MEDS ORDERED: SYMIN160 INH (18:09)
[2018-02-15] MEDS ORDERED: VNTHFA/IN INH (18:11)
[2018-02-15] MEDS ORDERED: OXGN (18:15)
[2018-02-15 18:41] LABS: ALBUMIN 4.1 gm/dl (3.4-5.0); ALKALINE PHOSPHATASE 82 U/L (45-117); ALT/SGPT 35 U/L (12-78); AST/SGOT 31 U/L (15-37); BLOOD UREA NITROGEN 14 mg/dl (7-18); CALCIUM 8.7 mg/dl (8.5-10.1); CARBON DIOXIDE 29 mmol/L (21-32); CKMB 2.2 ng/ml (0.5-3.6); CREATININE 1.53 mg/dl (0.60-1.40); GLUCOSE 88 mg/dl (70-99); LIPASE 163 U/L (73-393); POTASSIUM 3.8 mmol/L (3.5-5.1); SODIUM 142 mmol/L (136-145)
[2018-02-15 19:11] LABS: INR 1.1 (0.9-1.1); PTT PATIENT 26.6 SECONDS (21.0-31.0)
--- NOTE | 2018-02-15 19:40 | EMERGENCY ROOM VISIT NOTE ---
History Report prepared by Dk: Vanessa Marcos Under the Supervision of: Dr. Torsten Ibanez D.O. First contact with patient: 17:33 Chief Complaint: CHEST PAIN Stated Complaint: REALLY BAD CHEST PAINS,SOB Nursing Triage Summary: Constant substernal CP 08/05 x2 weeks. PT was raking leaves today and the pain got increasingly sharp. Took one nitro and used his oxygen which helped, but CP is still there. Follows with Dr. Hansen but has not seen him in 7 months. Did not go to PCP about CP because he thought it was his lungs. Supposed to use oxygen all the time, does not use. Supposed to take ASA daily but did not take today. Is under a lot of stress currently with issues with grandchildren. History of Present Illness The patient is a 72 year old male who presents to the Emergency Room with complaints of persistent chest pain that has been worsening in the last 10 days. He reports that he saw his lung doctor about 10 days ago, who told him that his COPD and silicosis were worsening. Because of his test findings, the patient was placed on oxygen at home. Since then, he has been experiencing centralized chest pain that worsens with exertion. He reports that the pain does not go away, but the severity decreases when he lays down, takes an Aspirin , and drinks some water. He notes that his breathing has worsened and that he has been short of breath. The patient states that he has abdominal pain, but denies any swelling in his legs. He reports a history of ulcers and leukemia. Source of History: patient Onset: about 10 days Position: chest Quality: other (chest pain) Timing: other (persistent) Modifying Factors (Worsening): exertion Modifying Factors (Relieving): other (laying down, Aspirin, and water) Associated Symptoms: + SOB, + abdominal pain Note: Patient denies: swelling in legs. Review of Systems See HPI for pertinent positives & negatives. A total of 10 systems reviewed and were otherwise negative. Past Medical & Surgical Medical Problems: (1) ACUTE MYOCARD INFARCT,UNSPEC SITE,INITIAL EPISODE (2) Acute on chronic respiratory failure with hypoxia (3) Cholecystectomy (4) CLL (chronic lymphocytic leukemia) (5) Diverticulitis (6) Enteritis (7) ESOPHAGEAL REFLUX (8) HYPERLIPIDEMIA NEC/NOS (9) HYPERTENSION NOS (10) MITRAL VALVE DISORDER (11) Pneumonia (12) Sepsis (13) Silicosis Family History FHx: heart disease Social History Smoking Status: Never Smoker Alcohol Use: none Drug Use: none Marital Status: single, Housing Status: lives with family Occupation Status: unemployed, retired Current/Historical Medications Scheduled Azelastine HCl (Azelastine Hydrochloride), 2 SPRAYS TAVO BID Budesonide/Formoterol Fumarate (Symbicort 160/4.5 Inhaler), 2 PUFFS INH BID Clopidogrel Bisulfate (Clopidogrel), 75 MG PO QAM Fluoxetine HCl (Fluoxetine HCl), 10 MG PO QAM Home O2 Therapy (Oxygen), 2 LITERS NA CONTINOUS Ipratropium-Albuterol (Combivent Respimat), 1 PUFF INH QID Metoprolol Succinate (Metoprolol Succinate ER), 100 MG PO QAM Montelukast Sod (Montelukast Sodium), 10 MG PO QAM Pantoprazole (Pantoprazole Sodium), 80 MG PO QAM Pravastatin Sodium (Pravastatin Sodium), 80 MG PO QAM Ranitidine Hcl (Zantac), 300 MG PO HS Sucralfate (Sucralfate), 1 GM PO ACHS Scheduled PRN Albuterol Hfa (Ventolin Hfa), 2 PUFFS INH Q4H PRN for SOB/Wheezing Celecoxib (Celecoxib), 200 MG PO DAILY PRN for Pain Ipratropium-Albuterol (Duoneb), 1 TREATMENT INH Q4H PRN for Wheezing Nitroglycerin (Nitrostat), 0.4 MG UT UD PRN for Chest Pain Allergies Coded Allergies: Levofloxacin (Verified Adverse Reaction, Intermediate, swelling, 07/04/17) Zolpidem (Verified Adverse Reaction, Unknown, Hallucinations., 07/04/17) Physical Exam Vital Signs Date Time Temp Pulse Resp B/P (MAP) Pulse Ox O2 Delivery O2 Flow Rate FiO2 02/15/18 19:17 66 18 130/85 98 Nasal Cannula 2.0 02/15/18 18:45 62 22 100 02/15/18 18:15 64 29 99 02/15/18 18:02 63 02/15/18 17:55 98 Nasal Cannula 2.0 02/15/18 17:34 95 Nasal Cannula 2.0 02/15/18 17:33 95 Nasal Cannula 2.0 02/15/18 17:21 85 Room Air 02/15/18 17:21 36.5 75 24 167/90 87 Room Air Physical Exam GENERAL: Patient is awake, alert, and in no acute distress. Patient is resting comfortably and showing no signs of anxiety EYES: The conjunctivae are clear. The pupils are round and reactive. EARS, NOSE, MOUTH AND THROAT: The nose is without any evidence of any deformity. Mucous membranes are moist tongue is midline NECK: The neck is nontender and supple. RESPIRATORY: Lung sounds diminished throughout with rales noted. No tachypnea or conversational dyspnea noted. CARDIOVASCULAR: Regular rate and rhythm noted there no murmurs rubs or gallops normal S1 normal S2 GASTROINTESTINAL: The abdomen is soft. Bowel sounds are present in all quadrants. Abdomen is nontender PELVIS: The Pelvis is stable. No tenderness to palpation is noted. BACK: No midline tenderness or or step-off noted range of motion in flexion extension as well as rotation no signs of muscle spasm noted MUSCULOSKELETAL/EXTREMITIES: There is no evidence of gross deformity full range of motion is noted in the hips and shoulders SKIN: There is no obvious evidence of any rash. There are no petechiae, pallor or cyanosis noted. NEUROLOGIC: Patient is awake alert and oriented x3 Medical Decision & Procedures ER Provider Diagnostic Interpretation: Radiology results as stated below per my review and radiologist interpretation: CHEST ONE VIEW PORTABLE CLINICAL HISTORY: CHEST PAIN dyspnea COMPARISON STUDY: 11/26/2017 FINDINGS: Moderate stable cardiomegaly. Diffuse bilateral pulmonary fibrosis. Mild chronic elevation left hemidiaphragm. No well-defined superimposed infiltrate. IMPRESSION: 1. Stable cardiomegaly. 2. Diffuse left and to a lesser extent right hemithoracic chronic parenchymal fibrosis. 3. No superimposed infiltrate The above report was generated using voice recognition software. It may contain grammatical, syntax or spelling errors. Electronically signed by: Fred Franklin M.D. 02/15/2018 5:47 PM Dictated Date/Time: 02/15/2018 5:46 PM Laboratory Results Test 02/15/18 17:53 02/15/18 18:51 Total Bilirubin 0.7 mg/dl (0.2-1) Direct Bilirubin mg/dl (0-0.2) Aspartate Amino Transf (AST/SGOT) 31 U/L (15-37) Alanine Aminotransferase (ALT/SGPT) 35 U/L (12-78) Alkaline Phosphatase 82 U/L (45-117) Total Protein 8.0 gm/dl (6.4-8.2) Albumin 4.1 gm/dl (3.4-5.0) Lipase 163 U/L (73-393) Prothrombin Time 11.3 SECONDS (9.0-12.0) Prothromb Time International Ratio 1.1 (0.9-1.1) Activated Partial Thromboplast Time 26.6 SECONDS (21.0-31.0) Partial Thromboplastin Ratio 1.0 Medications Administered Medications (Trade) Dose Ordered Sig/Sophy Route Start Time Stop Time Status Last Admin Dose Admin Aspirin (Aspirin Chew) 324 mg NOW STAT PO 02/15/18 17:37 02/15/18 17:38 DC 02/15/18 17:37 324 MG Al Hydroxide/Mg Hydroxide (Maalox Susp) 30 ml NOW STAT PO 02/15/18 17:37 02/15/18 17:38 DC 02/15/18 17:37 30 ML ECG Per My Interpretation Indication: chest pain Rate (beats per minute): 77 Rhythm: normal sinus Findings: RBBB, other (no PVC's noted) Change: no significant change (07/04/17) ED Course 1733: The patient was evaluated in room C8. A complete history and physical examination were performed. 1736: Ordered Aspirin 324mg PO and Maalox Susp 30ml PO. 1909: I discussed the patient's case with Dr. Swenson, [facility] hospitalist. The patient will be evaluated for further management. 1912: I reevaluated the patient, who was resting. I updated him on test findings and the treatment plan. He verbalized complete agreement and understanding. Medical Decision Prior records/ancillary studies reviewed. Triage Nursing notes reviewed. The patient's history was concerning for chest pain. Differential diagnosis: Etiologies such as cardiac ischemia, aortic dissection, pulmonary embolism, pneumonia, pneumothorax, musculoskeletal, infections, pericarditis, myocarditis , esophageal rupture, gastrointestinal, as well as others were entertained. The patient is a 72-year-old male who presented to the emergency department for an evaluation of chest discomfort. The patient describes substernal chest discomfort which was related to exertion. The patient's noted worsening chest discomfort especially with ambulation. The patient was raking leaves today and noticed worsening of his pain. For this reason he came to the emergency department. I discussed the patient's laboratory and radiographic studies with him. He was treated with aspirin in the emergency department. I discussed the limitations of the emergency department workup for chest pain with him but given his description of his pain as well as exertional component I discussed his case with the on-call [facility] hospitalist. They have agreed to evaluate the patient in the emergency department for further management and disposition. Medication Reconcilliation Current Medication List: was personally reviewed by me Blood Pressure Screening Patient's blood pressure: Normal blood pressure Blood pressure disposition: Did not require urgent referral Consults Time Called: 1909 Consulting Physician: [facility] hospitalist Returned Call: 1909 I discussed the patient's case with [facility] hospitalist. The patient will be evaluated for further management. Impression Primary Impression: Chest pain, exertional Scribe Attestation The scribe's documentation has been prepared under my direction and personally reviewed by me in its entirety. I confirm that the note above accurately reflects all work, treatment, procedures, and medical decision making performed by me. Departure Information Dispostion Being Evaluated By Hospitalist Referrals Lenora Jefferson DO (PCP) Forms Call Back Authorization, HOME CARE DOCUMENTATION FORM, IMPORTANT VISIT INFORMATION Patient Instructions My [facility]
--- NOTE | 2018-02-15 19:57 | History and Physical ---
History & Physical Date & Time of Service: Feb 15, 2018 at 19:56 Chief Complaint: Really Bad Chest Pains,Sob Primary Care Physician: Lenroa Jefferson DO History of Present Illness Source: patient, hospital records The patient is a 72-year-old male with a known past medical history including silicosis, acute [place], CLL and pneumonia, who presents to the emergency department with 10 days of worsening shortness of breath despite use of oxygen at home and home nebulizers. He had been seen by his restaurant cook Dr. Carrillo's assistance 10 days ago, and failed a walking pulse oximetry test, and was started on nasal cannula oxygen at home at that time. He reports that he continues to have significant dyspnea on exertion and exertional chest pain with less and less physical activity. He also does have some occasional epigastric discomfort, and has a known history of peptic ulcer disease. He has not had any recent travels or sick exposures that he is aware of. Past Medical/Surgical History Medical Problems: (1) Abdominal pain (2) ACUTE MYOCARD INFARCT,UNSPEC SITE,INITIAL EPISODE (3) Chest pain (4) Chest pain, atypical (5) Cholecystectomy (6) CLL (chronic lymphocytic leukemia) (7) Colitis (8) COPD (chronic obstructive pulmonary disease) (9) COPD exacerbation (10) Diverticulitis (11) Enteritis (12) ESOPHAGEAL REFLUX (13) Gastric out let obstruction (14) HYPERLIPIDEMIA NEC/NOS (15) HYPERTENSION NOS (16) Hypoxia (17) Ileus (18) Influenza A (19) Left knee pain (20) Low back pain with sciatica (21) Low back pain with sciatica (22) MITRAL VALVE DISORDER (23) Pneumonia (24) Pneumonia (25) Pneumonia (26) Precordial chest pain (27) Right sided abdominal pain (28) Sepsis (29) Silicosis Family History FHx: heart disease Social History Smoking Status: Never Smoker Smokeless Tobacco Use: No Alcohol Use: none Drug Use: none Marital Status: single, Housing status: lives with family Occupational Status: unemployed, retired Immunizations History of Influenza Vaccine: N/A Influenza Vaccine Date: Aug 03, 2009 History of Tetanus Vaccine?: Yes Tetanus Immunization Date: Apr 03, 2004 History of Pneumococcal: Yes Pneumococcal Date: Aug 03, 2007 History of Hepatitis B Vaccine: No Allergies Coded Allergies: Levofloxacin (Verified Adverse Reaction, Intermediate, swelling, 07/04/17) Zolpidem (Verified Adverse Reaction, Unknown, Hallucinations., 07/04/17) Home Medications Scheduled Azelastine HCl (Azelastine Hydrochloride), 2 SPRAYS TAVO BID Budesonide/Formoterol Fumarate (Symbicort 160/4.5 Inhaler), 2 PUFFS INH BID Clopidogrel Bisulfate (Clopidogrel), 75 MG PO QAM Fluoxetine HCl (Fluoxetine HCl), 10 MG PO QAM Home O2 Therapy (Oxygen), 2 LITERS NA CONTINOUS Ipratropium-Albuterol (Combivent Respimat), 1 PUFF INH QID Metoprolol Succinate (Metoprolol Succinate ER), 100 MG PO QAM Montelukast Sod (Montelukast Sodium), 10 MG PO QAM Pantoprazole (Pantoprazole Sodium), 80 MG PO QAM Pravastatin Sodium (Pravastatin Sodium), 80 MG PO QAM Ranitidine Hcl (Zantac), 300 MG PO HS Sucralfate (Sucralfate), 1 GM PO ACHS Scheduled PRN Albuterol Hfa (Ventolin Hfa), 2 PUFFS INH Q4H PRN for SOB/Wheezing Celecoxib (Celecoxib), 200 MG PO DAILY PRN for Pain Ipratropium-Albuterol (Duoneb), 1 TREATMENT INH Q4H PRN for Wheezing Nitroglycerin (Nitrostat), 0.4 MG UT UD PRN for Chest Pain Review of Systems The patient denies palpitations, lower extremity swelling, sore throat, fevers, chills, sweats, nausea, vomiting, diarrhea , constipation, abdominal pain, pelvic pain, blood in urine or stool, dysuria, urinary frequency or urgency, lightheadedness , dizziness, headache, memory loss, loss of consciousness, rash, abnormal bruising or bleeding, imbalance, focal or generalized weakness, numbness or tingling in arms or legs, back or neck pain, or night sweats. The review of systems is otherwise negative other than for that already noted above, and at least 10 systems have been reviewed. Physical Exam Vital Signs Date Time Temp Pulse Resp B/P (MAP) Pulse Ox O2 Delivery O2 Flow Rate FiO2 02/15/18 19:17 66 18 130/85 98 Room Air 02/15/18 18:45 62 22 100 02/15/18 18:15 64 29 99 02/15/18 18:02 63 02/15/18 17:55 98 Nasal Cannula 2.0 02/15/18 17:34 95 Nasal Cannula 2.0 02/15/18 17:33 95 Nasal Cannula 2.0 02/15/18 17:21 85 Room Air 02/15/18 17:21 36.5 75 24 167/90 87 Room Air The patient is awake, alert and oriented 3, normocephalic and atraumatic, has had weight loss since I last saw him one year ago, lying in bed and in no acute distress. HEENT--PERRL, EOMI, mucous membranes and oropharynx dry. Neck--supple. No JVD. No bruits. Thyroid normal, trachea midline, no adenopathy. Heart--normal S1 and S2. No murmurs, rubs or gallops. Lungs--dry crackles at the bases to two thirds the way up bilaterally. Abdomen--normal bowel sounds and soft. Nontender. Nondistended, no hernias or masses, no organomegaly. Extremities--no cyanosis or clubbing. No edema. There are good distal pulses b/ l. Dermatologic--normal skin turgor, normal color, no abnormal lymph nodes, no rash. Neurologic--cranial nerves II through XII grossly intact. Rheumatologic--normal range of motion. Psychiatric--normal affect. Diagnostics Laboratory Results Results Past 24 Hours Test 02/15/18 17:53 02/15/18 18:51 Range/Units White Blood Count 10.05 4.8-10.8 K/uL Red Blood Count 4.53 4.7-6.1 M/uL Hemoglobin 14.7 14.0-18.0 g/dL Hematocrit 43.1 42-52 % Mean Corpuscular Volume 95.1 80-100 fL Mean Corpuscular Hemoglobin 32.5 25-34 pg Mean Corpuscular Hemoglobin Concent 34.1 32-36 g/dl Platelet Count 318 130-400 K/uL Mean Platelet Volume 10.0 7.4-10.4 fL Neutrophils (%) (Auto) 69.8 % Lymphocytes (%) (Auto) 9.4 % Monocytes (%) (Auto) 10.5 % Eosinophils (%) (Auto) 6.0 % Basophils (%) (Auto) 3.9 % Neutrophils # (Auto) 7.02 1.4-6.5 K/uL Lymphocytes # (Auto) 0.94 1.2-3.4 K/uL Monocytes # (Auto) 1.06 0.11-0.59 K/uL Eosinophils # (Auto) 0.60 0-0.5 K/uL Basophils # (Auto) 0.39 0-0.2 K/uL RDW Standard Deviation 49.5 36.4-46.3 fL RDW Coefficient of Variation 14.2 11.5-14.5 % Immature Granulocyte % (Auto) 0.4 % Immature Granulocyte # (Auto) 0.04 0.00-0.02 K/uL Sodium Level 142 136-145 mmol/L Potassium Level 3.8 3.5-5.1 mmol/L Chloride Level 107 98-107 mmol/L Carbon Dioxide Level 29 21-32 mmol/L Anion Gap 6.0 3-11 mmol/L Blood Urea Nitrogen 14 7-18 mg/dl Creatinine 1.53 0.60-1.40 mg/dl Est Creatinine Clear Calc Drug Dose 44.3 ml/min Estimated GFR () 52.3 Estimated GFR (Non- 45.1 BUN/Creatinine Ratio 9.0 10-20 Random Glucose 88 70-99 mg/dl Calcium Level 8.7 8.5-10.1 mg/dl Total Bilirubin 0.7 0.2-1 mg/dl Direct Bilirubin 0-0.2 mg/dl Aspartate Amino Transf (AST/SGOT) 31 15-37 U/L Alanine Aminotransferase (ALT/SGPT) 35 12-78 U/L Alkaline Phosphatase 82 45-117 U/L Total Creatine Kinase 192 39-308 U/L Creatine Kinase MB 2.2 0.5-3.6 ng/ml Creatine Kinase MB Ratio 1.1 0-3.0 Troponin I < 0.015 0-0.045 ng/ml Total Protein 8.0 6.4-8.2 gm/dl Albumin 4.1 3.4-5.0 gm/dl Lipase 163 73-393 U/L Prothrombin Time 11.3 9.0-12.0 SECONDS Prothromb Time International Ratio 1.1 0.9-1.1 Activated Partial Thromboplast Time 26.6 21.0-31.0 SECONDS Partial Thromboplastin Ratio 1.0 Diagnostic Radiology Patient Name: JOSÉ BARAJAS Unit Number: [id number] Dictated: 02/15/181745 Transcribed: 02/15/181745 MS Printed Date/Time: [~ rep prt dt]/[~ rep prt tm] [~ rep ct labl] - [~ rep ct ivnm] [facility] [place] [address] Dictated: 02/15/181745 Transcribed: 02/15/181745 MS Printed Date/Time: [~ rep prt dt]/[~ rep prt tm] [~ rep ct labl] - [~ rep ct ivnm] CHEST ONE VIEW PORTABLE CLINICAL HISTORY: CHEST PAIN dyspnea COMPARISON STUDY: 11/26/2017 FINDINGS: Moderate stable cardiomegaly. Diffuse bilateral pulmonary fibrosis. Mild chronic elevation left hemidiaphragm. No well-defined superimposed infiltrate. IMPRESSION: 1. Stable cardiomegaly. 2. Diffuse left and to a lesser extent right hemithoracic chronic parenchymal fibrosis. 3. No superimposed infiltrate The above report was generated using voice recognition software. It may contain grammatical, syntax or spelling errors. Electronically signed by: Fred Franklin M.D. 02/15/2018 5:47 PM Dictated Date/Time: 02/15/2018 5:46 PM The status of this report is Signed. Draft = Not yet reviewed or approved by Radiologist. Signed = Reviewed and approved by Radiologist. <AttendingPhy></AttendingPhy> <FamilyPhy>Lenora Jefferson DO</FamilyPhy> < PrimaryPhy>Lenora Jefferson DO</PrimaryPhy> <UnitNumber>[id number]</UnitNumber > <VisitNumber>[id number]</VisitNumber> <PatientName>BARAJASJOSÉ JR</ PatientName> <DateOfBirth>1945</DateOfBirth> <Location>[facility]</Location> < ServiceDate>02/15/18</ServiceDate> <MNE>ESINDI</MNE> <OrderingPhy>Torsten Ibanez D.O.</OrderingPhy> <OrderingPhyMNE>f rep ord dr mne</OrderingPhyMNE> <DictatingPhyMNE>f rep dict dr flowers</DictatingPhyMNE> <CCListMNE>f rep ct mne</ CCListMNE> <AdmittingPhyMNE>f pt admit dr flowers</AdmittingPhyMNE> <AttendingPhyMNE >f pt attend dr flowers</AttendingPhyMNE> <ConsultingPhyMNE>f pt consult dr flowers</ConsultingPhyMNE> <FamilyPhyMNE>f pt fam dr flowers</FamilyPhyMNE> <OtherPhyMNE>f pt other dr flowers</OtherPhyMNE> < PrimaryPhyMNE>f pt prim care dr flowers</PrimaryPhyMNE> <ReferringPhyMNE>f pt referring dr flowers</ReferringPhyMNE> Patient Name: JOSÉ BARAJAS JR Unit Number: [id number] Dictated: 02/15/182043 Transcribed: 02/15/182043 MS Printed Date/Time: [~ rep prt dt]/[~ rep prt tm] [~ rep ct labl] - [~ rep ct ivnm] [facility] Radiology Department [place] [id number] Dictated: 02/15/182043 Transcribed: 02/15/182043 MS Printed Date/Time: [~ rep prt dt]/[~ rep prt tm] [~ rep ct labl] - [~ rep ct ivnm] (CHEST) THORAX WITHOUT CT DOSE: 237.35 mGy.cm HISTORY: Dyspnea hypoxia, sob TECHNIQUE: Multiaxial CT images of the chest were performed without contrast. A dose lowering technique was utilized adhering to the principles of ALARA. COMPARISON: 02/05/2016 FINDINGS: Diffuse bilateral parenchymal fibrosis and interstitial change. This is more prominent on the left as compared to the right but all findings appear to be identical compared to the prior exam. There is no superimposed infiltrate. There are findings of mild stable cardia megaly. There is moderate prominence of the central pulmonary vasculature. These findings are chronic. IMPRESSION: Chronic parenchymal fibrosis. No superimposed infiltrate. Mild stable cardiomegaly. The above report was generated using voice recognition software. It may contain grammatical, syntax or spelling errors. Electronically signed by: Fred Franklin M.D. 02/15/2018 8:47 PM Dictated Date/Time: 02/15/2018 8:44 PM The status of this report is Signed. Draft = Not yet reviewed or approved by Radiologist. Signed = Reviewed and approved by Radiologist. <AttendingPhy></AttendingPhy> <FamilyPhy>Lenora Jefferson, DO</FamilyPhy> < PrimaryPhy>Lenora Jefferson, DO</PrimaryPhy> <UnitNumber>[id number]</UnitNumber > <VisitNumber>[id number]</VisitNumber> <PatientName>JOSÉ BARAJAS JR</ PatientName> <DateOfBirth>1945</DateOfBirth> <Location>[facility]</Location> < ServiceDate>02/15/18</ServiceDate> <MNE>ESINDI</MNE> <OrderingPhy>Hu Swenson M.D.</OrderingPhy> <OrderingPhyMNE>f rep ord dr flowers</OrderingPhyMNE> < DictatingPhyMNE>f rep dict dr flowers</DictatingPhyMNE> <CCListMNE>f rep ct mne</ CCListMNE> <AdmittingPhyMNE>f pt admit dr flowers</AdmittingPhyMNE> <AttendingPhyMNE >f pt attend dr flowers</AttendingPhyMNE> <ConsultingPhyMNE>f pt consult dr flowers</ConsultingPhyMNE> <FamilyPhyMNE>f pt fam dr flowers</FamilyPhyMNE> <OtherPhyMNE>f pt other dr flowers</OtherPhyMNE> < PrimaryPhyMNE>f pt prim care dr flowers</PrimaryPhyMNE> <ReferringPhyMNE>f pt referring dr flowers</ReferringPhyMNE> EKG JOSÉ ID:[id number] 15-FEB-2018 17:19:55 [facility] Normal sinus rhythm Possible Left atrial enlargement Right bundle branch block Left ventricular hypertrophy Inferior infarct (cited on or before 09-NOV-2014) Abnormal ECG When compared with ECG of 04-JUL-2017 16:10, ST now depressed in Anterior leads Inverted T waves have replaced nonspecific T wave abnormality in Anterior leads 25mm/s 10mm/mV 150Hz 8.0 SP2 12SL 241 TYSHAWN: 13 Referred by: ED Unconfirmed Vent. rate 77 BPM MS interval 208 ms QRS duration 130 ms QT/QTc 412/466 ms P-R-T axes 62 -21 -7 1945 (72 yr) Male 75in 1lb Room: Loc: Cross Tie Tram Loader:Amari Segovia Test ind: Impression Assessment and Plan Acute on chronic respiratory failure with hypoxia/silicosis-- Both chest x-ray and CT of chest confirmed chronic parenchymal fibrosis with no superimposed infiltrate. Ceftriaxone 1 g IV given while in the ED. Place on levofloxacin 500 mg IV every 24 hours. Solu-Medrol 40 mg IV every 8 hours Guaifenesin extended release 600 mg by mouth twice a day Xopenex/Atovent nebs q6hwa and q2h prn Nasal cannula 2 L of oxygen titrating to keep pulse ox greater than or equal to 92%. We will consult his restaurant cook Dr. Carrillo. CAD/hypertension/history of acute [place]-- The patient will be admitted to telemetry for serial cardiac enzymes, serial EKG's, cardiac rhythm monitoring and a 2-D echocardiogram with Dopplers. Continue clopidogrel 75 mg every morning, metoprolol succinate ER 100 mg every morning changed to 50 mg p.o. twice daily with hold parameters. GERD/PUD-- Continue pantoprazole 40 mg p.o. twice daily, ranitidine 300 mg at bedtime and Carafate 10 mils p.o. 4 times daily. Hyperlipidemia-- Continue pravastatin 80 mg p.o. every morning. Advanced Directives Existing Advance Directive: No Existing Living Will: No Existing Power of Travel Med Surg Rn: No Resuscitation Status VTE Prophylaxis Will order VTE Prophylaxis: Yes Social Service Consult None Apply
[2018-02-15] MEDS ORDERED: ACETAMINOPHEN 325 MG TAB PO PRN (20:00)
[2018-02-15] MEDS ORDERED: NITROGLYCERIN 0.4 MG SL PER TAB CHARGE UT PRN (20:00)
[2018-02-15] MEDS ORDERED: ONDANSETRON INJ 2 MG/ML 2 ML VIAL IV PRN (20:00)
[2018-02-15] MEDS ORDERED: POLYETHYLENE (MIRALAX) 17 GM PACK PO PRN (20:00)
[2018-02-15] MEDS ORDERED: MAGNESIUM HYDROXIDE SUSP 30 ML UDC PO PRN (20:00)
[2018-02-15] MEDS ORDERED: ALUMINUM/MAGNESIUM/SIMETH (MAALOX MAX) 30 ML UDC PO PRN (20:00)
--- NOTE | 2018-02-15 20:49 | DIAGNOSTIC IMAGING REPORT ---
(CHEST) THORAX WITHOUT CT DOSE: 237.35 mGy.cm HISTORY: Dyspnea hypoxia, sob TECHNIQUE: Multiaxial CT images of the chest were performed without contrast. A dose lowering technique was utilized adhering to the principles of ALARA. COMPARISON: 02/05/2016 FINDINGS: Diffuse bilateral parenchymal fibrosis and interstitial change. This is more prominent on the left as compared to the right but all findings appear to be identical compared to the prior exam. There is no superimposed infiltrate. There are findings of mild stable cardia megaly. There is moderate prominence of the central pulmonary vasculature. These findings are chronic. IMPRESSION: Chronic parenchymal fibrosis. No superimposed infiltrate. Mild stable cardiomegaly. The above report was generated using voice recognition software. It may contain grammatical, syntax or spelling errors. Electronically signed by: Fred Franklin M.D. 02/15/2018 8:47 PM Dictated Date/Time: 02/15/2018 8:44 PM
[2018-02-15] MEDS ORDERED: LEVALBUTEROL/IPRATROPIUM NEB INH SCH (21:00)
[2018-02-15 21:19] VITALS: BP 120/81; PULSE 67; TEMP 36.8; Ht 175.3 cm; Wt 77.8 kg
[2018-02-15] MEDS ORDERED: IPRATROPIUM BROMIDE NEB SOLN 0.02% 2.5 ML VIAL INH PRN (21:45)
[2018-02-15] MEDS ORDERED: LEVALBUTEROL 1.25MG/0.5ML NEB INH PRN (21:45)
[2018-02-15] MEDS ORDERED: CEFTRIAXONE SOD INJ 1 GM in DEXTROSE 5% ADD-VANTAGE 50ML 50 ML IV SCH (22:00)
[2018-02-15] MEDS ORDERED: NSS + 20MEQ KCL 1000ML 1,000 ML IV SCH (22:00)
[2018-02-15] MEDS: METHYLPREDNISOLONE IV 40 MG in SYRINGE 0 ML IV SCH (22:07)
[2018-02-15] MEDS: GUAIFENESIN 600 MG TABCR PO SCH (22:08)
[2018-02-15] MEDS: SUCRALFATE 1 GM TAB PO SCH (22:09)
[2018-02-15] MEDS: RANITIDINE HCL 150 MG TAB PO SCH (22:09)
[2018-02-15] MEDS: HEPARIN SOD 5000 UNIT/0.5 ML CARP SQ SCH (22:11)
[2018-02-16] VITALS (9 sets, daily range): BP systolic 104–147; BP diastolic 48–77; PULSE 54–87; TEMP 36.5–37; O2SAT 94–98
[2018-02-16] MEDS: IPRATROPIUM BROMIDE NEB SOLN 0.02% 2.5 ML VIAL INH SCH ×4 (03:00→19:33)
[2018-02-16] MEDS: LEVALBUTEROL 1.25MG/0.5ML NEB INH SCH ×4 (03:00→19:33)
[2018-02-16] MEDS: METHYLPREDNISOLONE IV 40 MG in SYRINGE 0 ML IV SCH ×2 (04:13→21:04)
[2018-02-16 04:22] LABS: BASO % 3.6 %; BASO ABS # 0.26 K/uL (0-0.2); EOS % 1.4 %; HEMATOCRIT 38.9 % (42-52); HEMOGLOBIN 12.6 g/dL (14.0-18.0); IG# 0.03 K/uL (0.00-0.02); LYMPH % 7.6 %; LYMPH ABS # 0.55 K/uL (1.2-3.4); MEAN CELL VOLUME 95.8 fL (80-100); MEAN CORPUSCULAR HGB CONC 32.4 g/dl (32-36); MEAN PLATELET VOLUME 10.1 fL (7.4-10.4); MONO % 1.2 %; MONO ABS # 0.09 K/uL (0.11-0.59); NEUT % 85.8 %; NEUT ABS # 6.19 K/uL (1.4-6.5); PLATELET COUNT 272 K/uL (130-400); RED CELL DISTRIBUTION WIDTH CV 14.2 % (11.5-14.5); RED CELL DISTRIBUTION WIDTH SD 49.7 fL (36.4-46.3); WHITE BLOOD COUNT 7.22 K/uL (4.8-10.8)
[2018-02-16 04:48] LABS: BLOOD UREA NITROGEN 14 mg/dl (7-18); CALCIUM 8.2 mg/dl (8.5-10.1); CARBON DIOXIDE 27 mmol/L (21-32); CREATININE 1.43 mg/dl (0.60-1.40); GLUCOSE 151 mg/dl (70-99); POTASSIUM 4.5 mmol/L (3.5-5.1); SODIUM 140 mmol/L (136-145)
[2018-02-16 04:53] LABS: CKMB 1.8 ng/ml (0.5-3.6)
[2018-02-16] MEDS: BUDESONIDE 0.5 MG/2 ML VIAL (PULMICORT) INH SCH ×3 (07:13→19:36)
[2018-02-16] MEDS: AZELASTINE~ORDER AWAITING ACTION SCH ×3 (08:00→16:00)
[2018-02-16] MEDS ORDERED: NURSING VERBAL MED ORDER ONE (10:15)
--- NOTE | 2018-02-16 10:23 | PULMONARY CONSULTATION ---
DATE OF CONSULTATION: 02/16/2018 TIME: 9:25 a.m. REPORT OF CONSULTATION: The patient was seen in room 240, bed 2. 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 He also has had chronic elevation of the left hemidiaphragm. In the relatively recent past, he was prescribed for home oxygen because his oxygen levels desaturated very quickly. He states that they have gotten him portable oxygen tanks and they are trying to get him a portable concentrator. I do not believe he has used the oxygen too much at home, but he was vague about this. He states he was not told how often to wear it. The patient relates that for the past 10 days to 2 weeks, he has had chest pains with exertion. He describes the pain as being in the left upper anterior chest and that it radiates at times to his neck. There has been no left arm or shoulder pain. The pain is always precipitated by exertion. He does relate that he brought some mulch at a store. They loaded it for him, but when he was unloading his car, he had chest pain and shortness of breath carrying the 40-pound bags. He also has noticed pain with raking his yard. The patient admits to being short of breath walking from one room in his house to another. I then asked him if it was not obvious that getting short winded from one room to another, he probably should not be carrying 40-pound bags. He did agree with this. He does have a prior history of coronary artery disease and a prior MT. He has had a stent previously. He follows up with Dr. Hansen. He tells me that he had a stress test less than a year ago that was okay. He states he also has some type of valve problem. The patient had an evaluation at [facility] about 3 years ago. He was told that he had silicosis. 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 He had to wear a mask. He states that cough mass and also respirators. He worked there for 17 years from approximately 1974 to 1992 or thereabouts. 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 He has been retired since 2009. PAST SURGICAL HISTORY: 1. Knee arthroscopy. 2. Cardiac stent. 3. Cholecystectomy. PAST MEDICAL HISTORY: 1. Coronary artery disease. 2. Hypertension. 3. Hyperlipidemia. 4. MT. 5. CML. 6. Pyloric stenosis. 7. GERD. 8. Valvular heart disease. SOCIAL HISTORY: Tobacco: He states he smoked for only 1 or 2 years when he was young. Alcohol use is denied. ALLERGIES: AMBIEN AND LEVAQUIN. FAMILY HISTORY: Mother , age 88, heart disease and lung cancer. Father , age 60, lung cancer. MEDICATIONS AT HOME: 1. Ventolin HFA. 2. Azelastine nasal spray. 3. Symbicort 160/4.5 two puffs b.i.d. 4. Celecoxib 200 mg p.r.n. 5. Clopidogrel 75 mg daily. 6. Fluoxetine 10 mg daily. 7. Home O2. 8. Neb treatments with ipratropium, albuterol - the patient states he has not taken for a long time because he was given inhalers. 8. Metoprolol 100 mg daily. 9. Montelukast 10 mg daily. 10. Nitro p.r.n. 11. Pantoprazole 40 mg daily. 12. Pravastatin 80 mg daily. 13. Ranitidine 300 mg at bedtime. 14. Sucralfate 1 g a.c. and at bedtime. 15. Combivent Respimat - told to me by the patient, but not listed on the reconciliation of medicines. REVIEW OF SYSTEMS: The patient's energy level is fair. He denies any difficulty swallowing. He has had a weight loss in the past year or two. How much is unknown. The remainder of review of systems is otherwise negative. Ten systems reviewed. PHYSICAL EXAMINATION: GENERAL: The patient is a 72-year-old male who was cooperative, alert and oriented. He looks totally comfortable at rest. He is actually breathing faster than normal, but it is very subtle. VITAL SIGNS: Temperature is 36.6. HEENT: Pupils were reactive. Nares were clear. Mouth exam showed elongation of the uvula. When asked, he did admit that his tells him that he snores. Teeth are in suboptimal repair. NECK: Palpation of the neck reveals no lymph nodes. CARDIAC: Rate is 57 per minute. The rhythm is regular. Blood pressure 118/68. LUNGS: Auscultation of the lung alexander reveals dry rales bilaterally, greater on the left than the right. His respiratory rate was 26 per minute. He did not appear at all dyspneic. Oxygen saturation was 97% on 1 liter. ABDOMEN: Soft. Good bowel sounds were heard. There was no tenderness to palpation, masses, or organomegaly. EXTREMITIES: Showed no cyanosis, clubbing or edema. IMAGING DATA: The EKG showed a sinus rhythm. There was a right bundle-branch block. There was a left axis deviation. Prior inferior MT was suggested. Nonspecific ST and T-wave changes are seen. The chest x-ray showed diffuse chronic parenchymal fibrosis, greater on the left than the right with volume loss on the left. CAT scan of the chest shows chronic parenchymal fibrosis with no superimposed infiltrate. The report did not indicate a comment on lymphadenopathy. He previously had been reported as having some hilar and/or mediastinal adenopathy. There was no dye utilized and it was difficult to assess those areas. LABORATORY DATA: White count today is 7.22. Hemoglobin 12.6. Platelets 272,000. Coags are normal. Electrolytes show sodium 140, potassium 4.5, chloride 109, bicarbonate 27. BUN is 14 with a creatinine of 1.43. Blood sugar randomly was 151. Calcium 8.2. Magnesium 1.8. AST, ALT and alkaline phosphatase were normal. Lipase was normal. Troponins are negative x2. Additional information is that when the patient was in the Emergency Room, his room air pulse oximetry was 85%. IMPRESSION: 1. Acute onset chest pain - precipitated by exertion - cardiac etiology to be excluded. 2. Severe parenchymal pulmonary fibrosis, likely secondary to silicosis. 3. Severe restrictive lung disease based upon pulmonary functions done 01/20/2018. The patient's forced vital capacity is 36% of predicted and the FEV1 is 44% of predicted. Diffusion is only 23%. 4. Chronic respiratory failure with hypoxia. 5. Elevated left hemidiaphragm. COMMENTS AND RECOMMENDATIONS: The patient states he is feeling much better. From a pulmonary perspective, he indicates he prefers the nebulizer treatments to the inhalers he was taking. These have been restarted. He is on montelukast. He is on his usual GI medications for reflux. He is on the levalbuterol and ipratropium by nebulizer and he is on budesonide by nebulizer. He is on methylprednisolone. He is on ceftriaxone, although I am not convinced that he has an infection. Hopefully, the patient can get a portable concentrator for his oxygen. It would appear he needs to wear oxygen continuously. Thank you very much for asking me to assist in his care. We will be following up with him as an outpatient.
--- NOTE | 2018-02-16 10:44 | Clinical Documentation Query ---
CLINICAL DOCUMENTATION QUERY 72 yo male was admitted with acute respiratory failure. Creatinine levels are 1.53 and 1.43, respectively. Creatinine baseline was 1.30 in June 2017. GFR range from same time period are 55.3 to 45.1. In your clinical opinion is this patient being managed for: ( x ) Acute kidney failure on CKD III ( ) Not Agree ( ) Other explanation of clinical findings (Please Explain) ( ) Unable to determine (Please Define) ( ) Need to Discuss The medical record reflects the following clinical findings, treatment, and risk factors. Clinical Indicators: As above Treatment: PRPs, telemetry Risk Factors: Age, hx AR, HTN Please clarify and document your clinical opinion in the progress notes and discharge summary. Terms such as "probable", "suspected", "likely", "questionable", "possible", or "still to be ruled out" are acceptable. IF IN AGREEMENT, YOU MUST DOCUMENT ABOVE DIAGNOSTIC STATEMENT IN DAILY PROGRESS NOTES AND DISCHARGE SUMMARY. This document is not part of the patient's record. Thank You, Winter Martínez RN [phone]
--- NOTE | 2018-02-16 11:35 | ECHOCARDIOGRAM REPORT ---
*NOTICE TO RECEIVING [facility] This information is strictly Confidential and protected under [place] law. [place] law prohibits you from making any further disclosure of this information unless further disclosure is expressly permitted by the written consent of the person to whom it pertains or is authorized by law. A general authorization for the release of medical or other information is not sufficient for this purpose. Hospital accepts no responsibility if the information is made available to any other person, INCLUDING THE PATIENT. Interpretation Summary * Name: JOSÉ BARAJAS JR Study Date: 02/16/2018 07:01 AM BP: 118/68 mmHg * Patient Location: C.2T\S\S240\S\2 HR: 69 * : 1945 (M/d/yyyy) Gender: Male Height: 69 in * Age: 72 yrs Ethnicity: [place] Weight: 175 lb * Ordering Physician: Hu Swenson * Referring Physician: Self, Referred * Performed By: Mandy Weiss RCS * * Reason For Study: CHEST PAIN * BSA: 2.0 m2 * -- Conclusions -- * There is mild concentric left ventricular hypertrophy. * Left ventricular systolic function is normal. * Grade I diastolic dysfunction, (abnormal relaxation pattern). * The left atrium is mildly dilated. * Mild aortic regurgitation. * Prolapse of the posterior mitral leaflet(s). * There is moderate mitral regurgitation. * There is mild to moderate tricuspid regurgitation. * Right ventricular systolic pressure is elevated at 30-40mmHg. Procedure Details * A complete two-dimensional transthoracic echocardiogram was performed (2D, M-mode, Doppler and color flow Doppler). Left Ventricle * The left ventricle is normal in size. * There is mild concentric left ventricular hypertrophy. * Left ventricular systolic function is normal. * Ejection Fraction = 60-65%. * Grade I diastolic dysfunction, (abnormal relaxation pattern). * The left ventricular wall motion is normal. Right Ventricle * The right ventricle is normal in size and function. Atria * The left atrium is mildly dilated. * Right atrial size is normal. Mitral Valve * Prolapse of the posterior mitral leaflet(s). * There is moderate mitral regurgitation. * The mitral regurgitant jet is anteriorly directed, which is consistent with posterior leaflet pathology. Tricuspid Valve * The tricuspid valve is not well visualized, but is grossly normal. * There is mild to moderate tricuspid regurgitation. * Right ventricular systolic pressure is elevated at 30-40mmHg. Aortic Valve * The aortic valve is normal in structure and function. * The aortic valve is trileaflet. * No hemodynamically significant valvular aortic stenosis. * Mild aortic regurgitation. Pulmonic Valve * The pulmonic valve is not well seen, but is grossly normal. * Trace pulmonic valvular regurgitation. Great Vessels * The aortic root is normal size. Pericardium/Pleural * There is no pericardial effusion. Great Vessels * Normal inferior vena cava diameter and respiratory variation suggests normal central venous pressure. MMode 2D Measurements and Calculations IVSd 1.5 cm IVSs 1.8 cm LVIDd 5.2 cm LVIDs 3.6 cm LVPWd 1.5 cm LVPWs 1.5 cm IVS/LVPW 0.99 FS 32.0 % EDV(Teich) 131.9 ml ESV(Teich) 53.1 ml EF(Teich) 59.7 % EDV(cubed) 144.0 ml ESV(cubed) 45.3 ml EF(cubed) 68.5 % % IVS thick 23.5 % % LVPW thick 2.3 % LV mass(C)d 335.1 grams LV mass(C)dI 171.7 grams/m\S\2 LV mass(C)s 233.0 grams LV mass(C)sI 119.4 grams/m\S\2 SV(Teich) 78.7 ml SI(Teich) 40.3 ml/m\S\2 SV(cubed) 98.7 ml SI(cubed) 50.6 ml/m\S\2 Ao root diam 3.2 cm Ao root area 8.2 cm\S\2 ACS 2.1 cm LA dimension 4.3 cm LA/Ao 1.3 LVOT diam 2.3 cm LVOT area 4.1 cm\S\2 LVAd ap4 37.5 cm\S\2 LVLd ap4 8.6 cm EDV(MOD-sp4) 129.5 ml EDV(sp4-el) 138.4 ml LVAs ap4 24.3 cm\S\2 LVLs ap4 7.4 cm ESV(MOD-sp4) 65.5 ml ESV(sp4-el) 68.1 ml EF(MOD-sp4) 49.4 % EF(sp4-el) 50.8 % LVAd ap2 29.7 cm\S\2 LVLd ap2 7.5 cm EDV(MOD-sp2) 98.7 ml EDV(sp2-el) 100.6 ml LVAs ap2 19.1 cm\S\2 LVLs ap2 6.2 cm ESV(MOD-sp2) 48.8 ml ESV(sp2-el) 49.9 ml EF(MOD-sp2) 50.5 % EF(sp2-el) 50.4 % LVLd %diff -15.48 % EDV(MOD-bp) 117.7 ml LVLs %diff -18.47 % ESV(MOD-bp) 61.3 ml EF(MOD-bp) 47.9 % SV(MOD-sp4) 64.0 ml SI(MOD-sp4) 32.8 ml/m\S\2 SV(MOD-sp2) 49.9 ml SI(MOD-sp2) 25.5 ml/m\S\2 SV(MOD-bp) 56.4 ml SI(MOD-bp) 28.9 ml/m\S\2 SV(sp4-el) 70.3 ml SI(sp4-el) 36.0 ml/m\S\2 SV(sp2-el) 50.7 ml SI(sp2-el) 26.0 ml/m\S\2 Doppler Measurements and Calculations MV E max beatriz 73.3 cm/sec MV A max beatriz 72.3 cm/sec MV E/A 1.0 MV P1/2t max beatriz 82.4 cm/sec MV P1/2t 119.3 msec MVA(P1/2t) 1.8 cm\S\2 MV dec slope 202.2 cm/sec\S\2 MV dec time 0.31 sec Ao V2 max 139.1 cm/sec Ao max PG 7.7 mmHg Ao max PG (full) 5.8 mmHg HIRAL(V,A) 2.1 cm\S\2 HIRAL(V,D) 2.1 cm\S\2 LV V1 max PG 1.9 mmHg LV V1 max 69.0 cm/sec MR max beatriz 563.4 cm/sec MR max PG 127.0 mmHg PA V2 max 88.8 cm/sec PA max PG 3.2 mmHg PI max beatriz 240.8 cm/sec PI max PG 23.2 mmHg PI dec slope 158.9 cm/sec\S\2 PI P1/2t 443.8 msec TR max beatriz 270.6 cm/sec
[2018-02-16 12:28] LABS: CKMB 1.5 ng/ml (0.5-3.6)
--- NOTE | 2018-02-16 13:21 | DIAGNOSTIC IMAGING REPORT ---
ABDOMEN 2 VIEWS CLINICAL HISTORY: abd pain, burning sensation; eval for constipation, etc pain. Nausea. COMPARISON STUDY: 09/15/2015 FINDINGS: Nonobstructive bowel pattern. Minimal nonobstructive ileus. Fibrotic changes in the left and to a lesser extent right base. IMPRESSION: Minimal nonobstructive ileus. The above report was generated using voice recognition software. It may contain grammatical, syntax or spelling errors. Electronically signed by: Fred Franklin M.D. 02/16/2018 1:20 PM Dictated Date/Time: 02/16/2018 1:19 PM
[2018-02-16] MEDS ORDERED: OPTIRAY 320 IV PRN (14:30)
[2018-02-16] MEDS ORDERED: SODIUM CHLORIDE 0.9% 500ML 500 ML IV SCH (16:45)
[2018-02-16] MEDS: CLOPIDOGREL BISULFATE 75 MG TAB PO SCH (17:05)
[2018-02-16] MEDS: GUAIFENESIN 600 MG TABCR PO SCH ×2 (17:05→21:04)
[2018-02-16] MEDS: MONTELUKAST SOD 10 MG TAB PO SCH (17:05)
[2018-02-16] MEDS: PRAVASTATIN SOD 40 MG TAB PO SCH (17:05)
[2018-02-16] MEDS: RANITIDINE HCL 150 MG TAB PO SCH (17:06)
[2018-02-16] MEDS: FLUOXETINE HCL 10 MG CAP PO SCH (17:06)
[2018-02-16] MEDS: PANTOprazole SOD 40 MG TAB PO SCH (17:06)
[2018-02-16] MEDS: SUCRALFATE 1 GM TAB PO SCH ×4 (17:06→21:04)
[2018-02-16] MEDS: METOPROLOL SUCC 50MG EXT REL TAB PO SCH ×2 (17:07→21:04)
--- NOTE | 2018-02-16 17:16 | DIAGNOSTIC IMAGING REPORT ---
ABD/PELVIS IV AND ORAL CONT CT DOSE: 667.59 mGycm HISTORY: Pain ?ileus on x-rays, recent weight loss, abdominal pain TECHNIQUE: Multiaxial CT images of the abdomen and pelvis were performed following the use of intravenous and oral contrast. A dose lowering technique was utilized adhering to the principles of ALARA. COMPARISON STUDY: 02/14/2016. FINDINGS: Chronic basilar parenchymal fibrosis. This is unchanged compared to the prior study and is more significant at the left base. Liver is uniform. Prior cholecystectomy. Pancreas is unremarkable. The adrenal glands are normal. Stable unchanged right renal cyst. No evidence for renal hydronephrosis. Nonobstructive bowel pattern. Bladder is midline. No evidence for significant adenopathy. IMPRESSION: 1. Chronic basilar fibrosis unchanged from the prior exam.. 2. No acute process of the abdomen or pelvis. The above report was generated using voice recognition software. It may contain grammatical, syntax or spelling errors. Electronically signed by: Fred Franklin M.D. 02/16/2018 5:15 PM Dictated Date/Time: 02/16/2018 5:11 PM
[2018-02-16] MEDS: HEPARIN SOD 5000 UNIT/0.5 ML CARP SQ SCH ×2 (18:02→21:06)
--- NOTE | 2018-02-16 19:54 | Progress Note ---
Subjective Date of Service: Feb 16, 2018. Subjective Pt evaluation today including: conversation w/ patient, physical exam, chart review, lab review, review of studies (CT chest, CT abd/pelvis, echo ), conversation w/ data security consultant (pulmonary, cardiology), review of inpatient medication list Pain: numerous episodes of fleeting chest pain; nearly constant abd pain x months PO Intake: fair Voiding: no voiding problems patient overall feels better today with his breathing however, he was very focused on talking about his chest pain episodes and his abdominal pain chest pain - very frequent, multiple times each day central in location lasts for 1-2 minutes - resolves with rest exertional similar to pain when he had acute MA years ago the episodes have been worsening over time abdominal pain - has lost 10 pounds in the last 2 weeks appetite has been off feels bloated much of the pain is right-sided in location worse after eating belching/bloating pain is sometimes constant Problem List Medical Problems: (1) Abdominal pain Status: Acute (2) Chest pain, atypical Status: Acute (3) Chest pain, exertional Status: Acute (4) Colitis Status: Acute (5) COPD exacerbation Status: Acute (6) Precordial chest pain Status: Acute Review of Systems Constitutional: + weight loss, No fever, No chills Respiratory: + cough, + shortness of breath, + dyspnea on exertion, No sputum, No wheezing Cardiac: + chest pain, No orthopnea, No PND, No edema Abdomen: + pain, No nausea, No vomiting, No diarrhea, No GI bleeding Objective Vital Signs Date Time Temp Pulse Resp B/P (MAP) Pulse Ox O2 Delivery O2 Flow Rate FiO2 02/16/18 16:03 Nasal Cannula 2.0 02/16/18 15:58 36.5 78 20 147/77 (100) 95 Nasal Cannula 2.0 02/16/18 14:38 76 16 98 Nasal Cannula 2.0 02/16/18 12:03 Nasal Cannula 2.0 02/16/18 10:56 36.8 66 18 122/74 (90) 97 1.0 02/16/18 08:06 Nasal Cannula 2.0 02/16/18 07:15 36.6 55 18 118/68 (85) 97 1.0 02/16/18 04:05 37.0 55 18 105/65 (78) 94 2.0 02/16/18 04:00 Nasal Cannula 2.0 02/16/18 00:07 36.7 54 18 104/63 (77) 98 02/16/18 00:00 Nasal Cannula 2.0 02/15/18 21:19 36.8 67 24 120/81 Nasal Cannula 2.0 02/15/18 20:53 58 20 124/77 100 02/15/18 20:52 58 20 124/77 100 Nasal Cannula 2.0 Physical Exam General Appearance: no apparent distress ENT: pharynx normal Neck: no JVD Respiratory/Chest: no respiratory distress, no accessory muscle use, + crackles (bibasilar) Cardiovascular: regular rate, rhythm, no gallop, no murmur Abdomen: normal bowel sounds, soft, no organomegaly, + tenderness (mild, RUQ/ RLQ) Extremities: no pedal edema Neurologic/Psychiatric: alert, oriented x 3 Laboratory Results Last 24 Hours Test 02/16/18 03:45 02/16/18 11:54 02/16/18 13:00 White Blood Count 7.22 K/uL Red Blood Count 4.06 M/uL Hemoglobin 12.6 g/dL Hematocrit 38.9 % Mean Corpuscular Volume 95.8 fL Mean Corpuscular Hemoglobin 31.0 pg Mean Corpuscular Hemoglobin Concent 32.4 g/dl Platelet Count 272 K/uL Mean Platelet Volume 10.1 fL Neutrophils (%) (Auto) 85.8 % Lymphocytes (%) (Auto) 7.6 % Monocytes (%) (Auto) 1.2 % Eosinophils (%) (Auto) 1.4 % Basophils (%) (Auto) 3.6 % Neutrophils # (Auto) 6.19 K/uL Lymphocytes # (Auto) 0.55 K/uL Monocytes # (Auto) 0.09 K/uL Eosinophils # (Auto) 0.10 K/uL Basophils # (Auto) 0.26 K/uL RDW Standard Deviation 49.7 fL RDW Coefficient of Variation 14.2 % Immature Granulocyte % (Auto) 0.4 % Immature Granulocyte # (Auto) 0.03 K/uL Sodium Level 140 mmol/L Potassium Level 4.5 mmol/L Chloride Level 109 mmol/L Carbon Dioxide Level 27 mmol/L Anion Gap 4.0 mmol/L Blood Urea Nitrogen 14 mg/dl Creatinine 1.43 mg/dl Est Creatinine Clear Calc Drug Dose 47.4 ml/min Estimated GFR () 56.7 Estimated GFR (Non- 48.9 BUN/Creatinine Ratio 9.8 Random Glucose 151 mg/dl Calcium Level 8.2 mg/dl Magnesium Level 1.8 mg/dl Total Creatine Kinase 134 U/L 141 U/L Creatine Kinase MB 1.8 ng/ml 1.5 ng/ml Creatine Kinase MB Ratio 1.3 1.1 Troponin I < 0.015 ng/ml < 0.015 ng/ml Urine Color YELLOW Urine Appearance CLEAR Urine pH 5.0 Urine Specific [place] 1.018 Urine Protein NEG Urine Glucose (UA) 1+ Urine Ketones NEG Urine Occult Blood NEG Urine Nitrite NEG Urine Bilirubin NEG Urine Urobilinogen NEG Urine Leukocyte Esterase NEG Assessment and Plan 72yo male with: 1. 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 Cut steroids to q12h. He is on rocephin, but agree w/ Dr. Carrillo we can likely narrow this or stop completely as his imaging fails to show pneumonia process. Cont supportive care, NC O2, nebs, etc. Appreciate Dr. Carrillo's consultation. 2. recurrent chest pain episodes - despite even the recent chest pain his cardiac enzymes are all negative. Echo is w/o wall motion abnormalities. EKGs are stable. With that said he has known CAD and some of his symptoms are concerning for angina. I spoke with Dr. Hansen, his primary male model, who will see him in the am. In meantime continue his plavix, beta mark, and statin. 3. abdominal pain with weight loss - I obtained a KUB x-ray and there was a possible mild ileus. U/a was normal. Recent LFTs/lipase were normal. In light of symptoms I ordered CT abd/pelvis - no pathology identified. He may benefit from GI consultation and possible EGD as he had a duodenal stricture/stenosis that needed dilatation. Will f/u tomorrow. To help prevent contrast injury will give additional 500cc of NS tonight. 4. CKD stage 2 - creatinine baseline is 1.3; repeat BMP am. 5. DVT proph - heparin BID. 6. h/o GERD - continue H2 mark, PPI, and carafate - all chronic meds for him. 7. FEN - fluids as above for CT contrast, diet as tolerated, BMP in am. 8. HTN - continue home meds. 9. CLL - known diagnosis. 10. chronic hypoxic respiratory failure - due to #1 - recently placed on home O2. Suspect he will need to continue the oxygen at discharge as previous. Continued [facility] stay due to: multiple IV medications needed Discharge planning: uncertain
[2018-02-16] MEDS: DOXYCYCLINE HYCLATE 100 MG CAP PO SCH (21:08)
[2018-02-17] MEDS: IPRATROPIUM BROMIDE NEB SOLN 0.02% 2.5 ML VIAL INH SCH ×3 (01:51→14:06)
[2018-02-17] MEDS: LEVALBUTEROL 1.25MG/0.5ML NEB INH SCH ×3 (01:51→14:06)
[2018-02-17 04:00] VITALS: BP 104/61; PULSE 59; TEMP 36.8; O2SAT 99
[2018-02-17] MEDS: SUCRALFATE 1 GM TAB PO SCH ×2 (06:28→10:15)
[2018-02-17] MEDS: BUDESONIDE 0.5 MG/2 ML VIAL (PULMICORT) INH SCH (07:09)
[2018-02-17 07:10] VITALS: PULSE 88; O2SAT 97
[2018-02-17] MEDS: AZELASTINE~ORDER AWAITING ACTION SCH ×3 (07:37→15:42)
[2018-02-17] MEDS: PRAVASTATIN SOD 40 MG TAB PO SCH (07:38)
[2018-02-17] MEDS: GUAIFENESIN 600 MG TABCR PO SCH (07:38)
[2018-02-17] MEDS: MONTELUKAST SOD 10 MG TAB PO SCH (07:38)
[2018-02-17] MEDS: CLOPIDOGREL BISULFATE 75 MG TAB PO SCH (07:38)
[2018-02-17] MEDS: PANTOprazole SOD 40 MG TAB PO SCH (07:39)
[2018-02-17] MEDS: DOXYCYCLINE HYCLATE 100 MG CAP PO SCH (07:39)
[2018-02-17] MEDS: METOPROLOL SUCC 50MG EXT REL TAB PO SCH (07:39)
[2018-02-17] MEDS: FLUOXETINE HCL 10 MG CAP PO SCH (07:39)
[2018-02-17] MEDS: HEPARIN SOD 5000 UNIT/0.5 ML CARP SQ SCH (07:41)
[2018-02-17 07:48] LABS: BASO % 0.1 %; BASO ABS # 0.01 K/uL (0-0.2); HEMATOCRIT 36.5 % (42-52); HEMOGLOBIN 12.2 g/dL (14.0-18.0); IG# 0.06 K/uL (0.00-0.02); LYMPH ABS # 0.76 K/uL (1.2-3.4); MEAN CELL VOLUME 94.8 fL (80-100); MEAN CORPUSCULAR HEMOGLOBIN 31.7 pg (25-34); MEAN CORPUSCULAR HGB CONC 33.4 g/dl (32-36); MEAN PLATELET VOLUME 10.1 fL (7.4-10.4); MONO % 4.5 %; MONO ABS # 0.86 K/uL (0.11-0.59); NEUT % 91.1 %; NEUT ABS # 17.33 K/uL (1.4-6.5); PLATELET COUNT 302 K/uL (130-400); RED CELL DISTRIBUTION WIDTH CV 14.4 % (11.5-14.5); RED CELL DISTRIBUTION WIDTH SD 49.4 fL (36.4-46.3); WHITE BLOOD COUNT 19.02 K/uL (4.8-10.8)
[2018-02-17 07:57] LABS: CALCIUM 8.5 mg/dl (8.5-10.1); CREATININE 1.25 mg/dl (0.60-1.40)
[2018-02-17 08:00] VITALS: BP 115/65; PULSE 68; TEMP 36.7; O2SAT 96
[2018-02-17] MEDS: METHYLPREDNISOLONE IV 40 MG in SYRINGE 0 ML IV SCH (08:50)
--- NOTE | 2018-02-17 10:25 | Cardiology Consultation ---
Cardiology Consultation Date of Consultation: Feb 17, 2018. Requesting Physician: Dr. Lopez Attending Physician: Dr. Hansen Reason for Consultation: Chest pain Pt evaluation today including: conversation w/ patient, physical exam, chart review, lab review, review of studies, review of inpatient medication list, conversation w/ attending History of Present Illness Mr. Womack is a 72 year old male with a medical history significant for CAD ( IPLMI OM BMS, March 2010; 80% RCA), hypertension, dyslipidemia, mitral valve disease (posterior leaflet MVP, moderate MR), CML, GERD, severe pulmonary fibrosis with severe restrictive lung disease (O2 dependent). He presented to the emergency department on 02/16/18 with worsening exertional dyspnea and chest discomfort. He reports that his shortness of breath has been getting progressively worse and he was recently started on supplemental oxygen by his garment turner. He also complains of exertional chest discomfort which he describes as "soreness" in the center of his chest. The discomfort occurs with activity such as walking, raking leaves or cleaning. The pain has been severe enough to make him stop what he is doing. Typically the discomfort resolves within 2-3 minutes with rest. He denies radiation to his neck, back, jaw or arms. He has not tried taking nitroglycerin but took 2 aspirin on one occasion with improvement. He has a history of GERD and states his current symptoms are different. They do not occur at rest. He denies palpitations, lightheadedness, presyncope or syncope. No orthopnea, PND or peripheral edema. He denies abnormal bleeding including melena, hematochezia or hematuria. His cardiac enzymes have been negative since admission. His electrocardiogram demonstrates a RBBB with nonspecific ST-T wave abnormality. He has not experienced any further chest pain although he has only ambulated short distances in his room. He underwent a dobutamine stress echo in January 2017 for exertional chest pain which was negative for ischemia. The remainder of his review of systems is unremarkable. Family History FHx: heart disease Social History Smoking Status: Never Smoker History of Alcohol Use: No with 4 children. 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 History of cigarette smoking >40 years ago. No alcohol or drug use. Allergies Coded Allergies: Levofloxacin (Verified Adverse Reaction, Intermediate, swelling, 07/04/17) Zolpidem (Verified Adverse Reaction, Unknown, Hallucinations., 07/04/17) Medications Current Inpatient Medications Medications (Trade) Dose Ordered Sig/Sopyh Route Start Time Stop Time Status Last Admin Dose Admin Heparin Sodium (Porcine) (Heparin Sq 5000 Unit/0.5ml) 5,000 unit Q12 SQ 02/15/18 21:00 03/17/18 20:59 02/17/18 07:41 5,000 UNIT Acetaminophen (Tylenol Tab) 650 mg Q4H PRN PO 02/15/18 20:00 03/17/18 19:59 Al Hydrox/Mg Hydrox/Simethicone (Maalox Max Susp) 15 ml Q4H PRN PO 02/15/18 20:00 03/17/18 19:59 Magnesium Hydroxide (Milk Of Magnesia Susp) 30 ml Q12H PRN PO 02/15/18 20:00 03/17/18 19:59 Polyethylene (Miralax Powder Packet) 17 gm DAILY PRN PO 02/15/18 20:00 03/17/18 19:59 Ondansetron HCl (Zofran Inj) 4 mg Q6H PRN IV 02/15/18 20:00 03/17/18 19:59 Guaifenesin (Mucinex Contr Rel Tab) 600 mg Q12 PO 02/15/18 21:00 03/17/18 20:59 02/17/18 07:38 600 MG Budesonide (Pulmicort Respules 0.5MG/ 2ML Neb Soln) 0.5 mg BIDR INH 02/15/18 20:00 03/17/18 19:59 02/17/18 07:09 0.5 MG Clopidogrel Bisulfate (plAVix TAB) 75 mg QAM PO 02/16/18 09:00 03/18/18 08:59 02/17/18 07:38 75 MG Fluoxetine HCl (Prozac Cap) 10 mg QAM PO 02/16/18 09:00 03/18/18 08:59 02/17/18 07:39 10 MG Montelukast Sodium (Singulair Tab) 10 mg QAM PO 02/16/18 09:00 03/18/18 08:59 02/17/18 07:38 10 MG Nitroglycerin (Nitrostat Tab) 0.4 mg UD PRN UT 02/15/18 20:00 03/17/18 19:59 Pantoprazole Sodium (Protonix Tab) 80 mg QAM PO 02/16/18 09:00 03/18/18 08:59 02/17/18 07:39 80 MG Sucralfate (Carafate Tab) 1 gm ACHS PO 02/15/18 21:00 03/17/18 20:59 02/17/18 06:28 1 GM Miscellaneous Information (Order Awaiting Action) 1 ea QS N/A 02/16/18 00:00 03/18/18 00:00 Metoprolol Succinate (Toprol Xl Tab) 50 mg BID PO 02/16/18 09:00 03/18/18 08:59 02/17/18 07:39 50 MG Pravastatin Sodium (Pravachol Tab) 80 mg QAM PO 02/16/18 09:00 03/18/18 08:59 02/17/18 07:38 80 MG Ranitidine HCl (zANTac TAB) 300 mg HS PO 02/15/18 21:00 03/17/18 20:59 02/16/18 17:06 300 MG Ipratropium [place] (Atrovent 0.02% 0.5MG/2.5ML Neb) 0.5 mg Q6R INH 02/16/18 03:00 03/18/18 02:59 02/17/18 07:09 0.5 MG Levalbuterol (Xopenex 1.25MG/ 0.5ML Neb) 1.25 mg Q6R INH 02/16/18 03:00 03/18/18 02:59 02/17/18 07:09 1.25 MG Ipratropium [place] (Atrovent 0.02% 0.5MG/2.5ML Neb) 0.5 mg Q2H PRN INH 02/15/18 21:45 03/17/18 21:44 Levalbuterol (Xopenex 1.25MG/ 0.5ML Neb) 1.25 mg Q2H PRN INH 02/15/18 21:45 03/17/18 21:44 Methylprednisolone Sodium Succinate 40 mg/Syringe 0.64 ml @ 1.5 mls/min Q12H IV 02/16/18 22:00 03/17/18 21:59 02/17/18 08:50 1.5 MLS/MIN Ioversol (Optiray 320) 125 ml UD PRN IV 02/16/18 14:30 02/20/18 14:29 Doxycycline Hyclate (Vibramycin Cap) 100 mg BID PO 02/16/18 21:00 02/23/18 20:59 02/17/18 07:39 100 MG Physical Exam Vital Signs Past 12 Hours Date Time Temp Pulse Resp B/P (MAP) Pulse Ox O2 Delivery O2 Flow Rate FiO2 02/17/18 08:00 36.7 68 16 115/65 (82) 96 Nasal Cannula 2.0 02/17/18 07:10 88 16 97 Nasal Cannula 2.0 02/17/18 04:00 99 Nasal Cannula 2.0 02/17/18 04:00 36.8 59 20 104/61 (75) 99 Nasal Cannula 2.0 02/16/18 23:59 36.9 70 18 108/63 (78) 98 Nasal Cannula 2.0 02/16/18 23:59 98 Nasal Cannula 2.0 General: Well appearing, in no acute distress. Alert and oriented. HEENT: Head is normal. Sclera anicteric. Mucous membranes moist. Neck: Supple without JVD or carotid bruit. Lungs: Bibasilar fibrotic rales. Cardiac: Regular rate and rhythm. S1 and S2 normal. Grade 2/6 systolic murmur at the apex. Abdomen: Soft and nontender. Bowel sounds present. No mass or organomegaly. No abdominal bruit. Extremities: Without cyanosis, clubbing or peripheral edema. Peripheral pulses intact. Skin: No rash or abnormal lesions. Neurologic: No lateralizing changes. Data Laboratory Results: Last 24 Hours Test 02/16/18 11:54 02/16/18 13:00 02/17/18 06:59 Total Creatine Kinase 141 U/L Creatine Kinase MB 1.5 ng/ml Creatine Kinase MB Ratio 1.1 Troponin I < 0.015 ng/ml Urine Color YELLOW Urine Appearance CLEAR Urine pH 5.0 Urine Specific [place] 1.018 Urine Protein NEG Urine Glucose (UA) 1+ Urine Ketones NEG Urine Occult Blood NEG Urine Nitrite NEG Urine Bilirubin NEG Urine Urobilinogen NEG Urine Leukocyte Esterase NEG White Blood Count 19.02 K/uL Red Blood Count 3.85 M/uL Hemoglobin 12.2 g/dL Hematocrit 36.5 % Mean Corpuscular Volume 94.8 fL Mean Corpuscular Hemoglobin 31.7 pg Mean Corpuscular Hemoglobin Concent 33.4 g/dl Platelet Count 302 K/uL Mean Platelet Volume 10.1 fL Neutrophils (%) (Auto) 91.1 % Lymphocytes (%) (Auto) 4.0 % Monocytes (%) (Auto) 4.5 % Eosinophils (%) (Auto) 0.0 % Basophils (%) (Auto) 0.1 % Neutrophils # (Auto) 17.33 K/uL Lymphocytes # (Auto) 0.76 K/uL Monocytes # (Auto) 0.86 K/uL Eosinophils # (Auto) 0.00 K/uL Basophils # (Auto) 0.01 K/uL RDW Standard Deviation 49.4 fL RDW Coefficient of Variation 14.4 % Immature Granulocyte % (Auto) 0.3 % Immature Granulocyte # (Auto) 0.06 K/uL Sodium Level 139 mmol/L Potassium Level 4.0 mmol/L Chloride Level 107 mmol/L Carbon Dioxide Level 28 mmol/L Anion Gap 5.0 mmol/L Blood Urea Nitrogen 14 mg/dl Creatinine 1.25 mg/dl Est Creatinine Clear Calc Drug Dose 54.2 ml/min Estimated GFR () 66.7 Estimated GFR (Non- 57.6 BUN/Creatinine Ratio 11.4 Random Glucose 131 mg/dl Calcium Level 8.5 mg/dl Magnesium Level 1.8 mg/dl Chest x-ray: pulmonary fibrosis Chest CT: chronic parenchymal fibrosis, stable mild cardiomegaly. Echocardiogram: Mild concentric LVH. LV systolic function normal (EF 60-65%). No regional wall motion abnormalities. Grade I diastolic dysfunction. Left atrium mildly dilated. Mild aortic regurgitation. Prolapse of posterior mitral leaflet. Moderate mitral regurgitation. Mild to moderate tricuspid regurgitation. RV systolic pressure elevated at 30-40 mmHg. Telemetry sinus rhythm with PVCs. Assessment & Plan Patient was discussed with Dr. Hansen. Mr. Womack is a 72 year old male with a medical history significant for CAD ( IPLMI OM BMS, March 2010; 80% RCA), hypertension, dyslipidemia, mitral valve disease (posterior leaflet MVP, moderate MR), CML, GERD, severe pulmonary fibrosis with severe restrictive lung disease (O2 dependent) who was admitted with worsening exertional dyspnea and chest discomfort. He has severe pulmonary disease and was recently initiated on supplemental oxygen. Given his known coronary disease his exertional chest discomfort is concerning for angina. His cardiac enzymes have remained negative, ECG shows no acute changes and echo demonstrates normal LV systolic function with normal wall motion. The options of conservative therapy with medical management versus more pursuing ischemic workup were discussed with the patient. We feel given his severe lung disease he would be high risk for any cardiac intervention. The patient prefers conservative management at this time. Therefore recommend initiating Ranexa 500 mg twice daily. Thank you for the consultation. We can continue to follow him in the outpatient cardiology clinic.
[2018-02-17 12:12] VITALS: BP 121/64; PULSE 63; TEMP 36.7; O2SAT 96
[2018-02-17] MEDS ORDERED: RANOLAZINE 500 MG ER TAB PO ONE (13:08)
[2018-02-17 14:07] VITALS: PULSE 90; O2SAT 98
[2018-02-17] MEDS ORDERED: DXY100 PO (14:54)
[2018-02-17] MEDS ORDERED: PRED10TA PO (14:54)
[2018-02-17] MEDS ORDERED: RNXER500 PO (14:54)
--- NOTE | 2018-02-17 15:02 | Discharge Instructions ---
Discharge Instructions Date of Service Feb 17, 2018. Admission Reason for Admission: shortness of breath, chest pain Discharge Discharge Diagnosis / Problem: pulmonary fibrosis "exacerbation"; chest pain - no evidence of heart attack Discharge Goals Goal(s): Learn about illness, Diagnostic testing, Therapeutic intervention Activity Recommendations Activity Limitations: resume your previous activity (as tolerated) . Instructions / Follow-Up Instructions / Follow-Up From Dr. Lopez - You were admitted to the hospital for worsening shortness of breath and recurrent episodes of chest pain/discomfort. You had multiple blood tests to rule out a heart attack and this blood work was indeed normal. Thus, you did not have a heart attack. Your echocardiogram for your heart showed normal heart function. Your CAT scans were normal except for your pulmonary fibrosis. Your shortness of breath was likely from your pulmonary fibrosis. However, the chest pain may in fact be from your coronary artery disease. You were seen by Dr. Carrillo from pulmonary as well as the cardiology team. Dr. Carrillo is recommending a course of prednisone for your pulmonary fibrosis. Cardiology is recommending a drug called "ranexa" to treat the suspected heart pain/angina. Please do the following - 1. for your pulmonary fibrosis "exacerbation" take - * prednisone course for 8 days; start this TOMORROW on 02/18/18 * doxycycline 100mg twice a day for 5 days; begin this TONIGHT * the doxycycline can sometimes cause heartburn * it can also cause a rash if you go out in the sun * if you go out in the sun while on doxycycline please cover up/use sunscreen * continue your inhalers and nebulizer treatments as previous * continue your oxygen 2 liters at all times 2. for your heart disease / coronary artery disease - * start ranexa 500mg twice a day every day * begin this TONIGHT * if you continue to experience chest pain symptoms despite being on the ranexa please let Dr. Hansen know right away * you can also use sublingual nitroglycerin the next time you have chest pain to see if that helps 3. you had asked about something other than prozac for your anxiety. You are on a small dose of prozac at this time. Please talk with Dr. Jefferson about increasing the prozac to 20mg daily or switching to something else like paxil or zoloft. 4. follow-up appointments - * see Dr. Jefferson within 1 week * see Dr. Case, GI, within 1-2 weeks to discuss having another upper endoscopy ( EGD) * see Dr. Carrillo, pulmonary, within 2 weeks * see Dr. Hansen within 2-3 weeks 5. Return to [facility] if - * you are having severe chest pain that is not resolving or responding to nitroglycerin * you have worsening shortness of breath despite your oxygen, neb treatments, etc * severe abdominal pain occurs * any other concerns Current Hospital Diet Patient's current hospital diet: Regular Diet Discharge Diet Recommended Diet: AHA Diet (Heart Healthy) Procedures Procedures Performed: CAT scan of the lungs showing pulmonary fibrosis but no pneumonia or congestive heart failure. CAT scan of the abdomen & pelvis showing no abnormalities - specifically no tumors/masses, no pancreatitis, no diverticulitis, etc. Pending Studies Studies pending at discharge: no Medical Emergencies . Who to Call and When: Medical Emergencies: If at any time you feel your situation is an emergency, please call 911 immediately. . Non-Emergent Contact Non-Emergency issues call your: Primary Care Provider Call Non-Emergent contact if: temperature is above 100.5, your pain is not controlled, your pain is worsening, your pain is unusual for you, your pain is concerning you, you have any medication questions . . "Provider Documentation" section prepared by Phong Lopez. .
[2018-02-17] MEDS ORDERED: NTRGSL/4 UT (15:03)
[2018-02-17 15:20] VITALS: BP 121/64; PULSE 90; TEMP 36.7; O2SAT 98
[2018-02-17] MEDS ORDERED: RANOLAZINE 500 MG ER TAB PO SCH (21:00)
== END 2018-02-17 17:04 | disposition home or self-care (01) | DRG 197 ==
LOC: C.EDB 17:16 → C.2T 19:58 → ENRESERV 20:20
PROVIDERS: ADMIT Hospitalist; ATTEND Internal Medicine
DX: J62.8 Pneumoconiosis due to other dust containing silica (principal); C91.11 Chronic lymphocytic leukemia of B-cell type in remission; J96.11 Chronic respiratory failure with hypoxia; J84.10 Pulmonary fibrosis, unspecified; E78.5 Hyperlipidemia, unspecified; I12.9 Hypertensive chronic kidney disease with stage 1 through stage 4 chronic kidney disease, or unspecified chronic kidney disease; I05.9 Rheumatic mitral valve disease, unspecified; I45.10 Unspecified right bundle-branch block; I25.10 Atherosclerotic heart disease of native coronary artery without angina pectoris; K21.9 Gastro-esophageal reflux disease without esophagitis; N18.2 Chronic kidney disease, stage 2 (mild); Z87.01 Personal history of pneumonia (recurrent); Z90.49 Acquired absence of other specified parts of digestive tract; Z88.1 Allergy status to other antibiotic agents; I25.2 Old myocardial infarction; Z99.81 Dependence on supplemental oxygen; Z82.49 Family history of ischemic heart disease and other diseases of the circulatory system; Z80.1 Family history of malignant neoplasm of trachea, bronchus and lung

== ENCOUNTER 2018-12-30 21:23 | Inpatient (IN) ==
[2018-12-30] MEDS ORDERED: ALBUT/IPRATROP 3MG/0.5MG NEB 3 ML VIAL NEB STA (21:52)
[2018-12-30 22:18] LABS: Albumin Level 3.3 gm/dl (3.4-5.0); BUN Creatinine Ratio 10.3 (10-20); Calcium 8.4 mg/dl (8.5-10.1); Creatinine Clr Calc Pharmacy 55.3 ml/min; Est GFR (African American) 74.1; Est GFR (Non-African American) 63.9; Potassium 4.1 mmol/L (3.5-5.1)
[2018-12-30 22:22] LABS: Albumin Globulin Ratio 0.8 (0.9-2); Bilirubin,Total 0.3 mg/dl (0.2-1); Globulin 4.1 gm/dl (2.5-4.0); Total Protein 7.4 gm/dl (6.4-8.2)
--- NOTE | 2018-12-30 22:34 | Emergency Department Note ---
History of Present Illness General Chief complaint: Shortness of Breath/Dyspnea Stated complaint: SOB, CHEST PAIN Time Seen by Provider: 12/30/18 21:34 Source: patient Mode of arrival: EMS Limitations: no limitations History of Present Illness Maximum Pain Intensity: 4 This patient is a 73-year-old male who presents to the emergency department via EMS for evaluation of chest pain and shortness of breath. The patient reports that his and daughter were in an argument and he attempted to calm them down and developed substernal chest pain and shortness of breath. He reports he also had palpitations at the time. He took 3 nitroglycerin and was given 324 mg aspirin by EMS. He states that the nitroglycerin did not relieve his chest pain. 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 He states that over the past 1-2 years, he has had worsening angina. His symptoms have worsened significantly over the past 1 month and he reports that he is basically bedridden due to his symptoms. He states that his takes care of him. He states that with any type of activity, even walking a short distance he becomes very short of breath, feels dizzy and develops pain in the chest. He reports this is similar to symptoms of angina that he has had in the past, however they have been happening with less exertion. He rates his current discomfort a 4/10 and states his symptoms are improving. He wears 2 L of oxygen at all times at home. Home Medications Home Medications Medication Instructions Recorded Confirmed Type budesonide-formoterol [Symbicort] 2 puff INHALATION BID 12/30/18 12/30/18 History celecoxib 200 mg PO DAILY 12/30/18 12/30/18 History clopidogrel [Plavix] 75 mg PO DAILY 12/30/18 12/30/18 History fexofenadine 180 mg PO DAILY 12/30/18 12/30/18 History ipratropium-albuterol 3 ml INHALATION QID 12/30/18 12/30/18 History ipratropium-albuterol [Combivent 1 puff INHALATION QID 12/30/18 12/30/18 History Respimat] isosorbide mononitrate 30 mg PO DAILY 12/30/18 12/30/18 History lorazepam 0.5 mg PO DAILY PRN 12/30/18 12/30/18 History metoprolol succinate 100 mg PO DAILY 12/30/18 12/30/18 History montelukast 10 mg PO DAILY 12/30/18 12/30/18 History nitroglycerin [Nitrostat] 0.4 mg SUBLINGUAL DIRECTED PRN 12/30/18 12/30/18 History pantoprazole 40 mg PO BID 12/30/18 12/30/18 History paroxetine HCl [Paxil] 10 mg PO DAILY 12/30/18 12/30/18 History pravastatin 80 mg PO DAILY 12/30/18 12/30/18 History prednisone 10 mg PO DAILY 12/30/18 12/30/18 History Allergies Allergy/AdvReac Type Severity Reaction Status Date / Time levofloxacin AdvReac Intermediate swelling Verified 12/30/18 21:57 zolpidem AdvReac Intermediate Hallucinati Verified 12/30/18 21:57 ons. Past Med/Surg History Medical History Silicosis (Chronic) Social History Preferred Language: Armenian Communication Ability: Effective Associate Program Manager Required: No Beliefs That Will Affect Care: None Current Living Situation: Spouse Feels Safe at Home: Yes Safety Concerns: Feels Safe At This Time Smoking Status: Light tobacco smoker Hx Alcohol Use: No Hx Substance Use: No Review of Systems A total of 10 systems reviewed and were otherwise negative Physical Exam Vital Signs Vital Signs - 24 hr 12/30/18 21:28 12/30/18 21:34 12/30/18 21:59 Temperature Temperature Source Sepsis Recent Fever Within 48 Hours No Sepsis Action Taken by Nursing No Action Required Pulse Rate 102 H 100 H 91 H Pulse Rate [Right Finger] Pulse Rate from SpO2 Sensor 103 H Pulse Rhythm Regular Regular Pulse Rhythm [Right Finger] Pulse Strength Normal Pulse Strength [Right Finger] Respiratory Rate 33 H 38 H 35 H Respiratory Effort / Characteristics Labored Respiratory Depth Normal Respiratory Pattern Apnea Blood Pressure 120/69 120/69 Blood Pressure [Left Arm] Blood Pressure Mean 86 86 Blood Pressure Mean [Left Arm] Blood Pressure Position Lying Blood Pressure Position [Left Arm] Pulse Oximetry 96 88 L 100 Oxygen Delivery Method Nasal Cannula Nasal Cannula Nasal Cannula Oxygen Flow Rate 2 4 12/30/18 22:00 12/30/18 22:35 12/30/18 22:36 Temperature Temperature Source Sepsis Recent Fever Within 48 Hours Sepsis Action Taken by Nursing Pulse Rate 90 91 H Pulse Rate [Right Finger] 91 H Pulse Rate from SpO2 Sensor 93 H 91 H Pulse Rhythm Pulse Rhythm [Right Finger] Regular Pulse Strength Pulse Strength [Right Finger] Normal Respiratory Rate 30 H 35 H 31 H Respiratory Effort / Characteristics Labored Respiratory Depth Normal Respiratory Pattern Regular Blood Pressure 105/64 Blood Pressure [Left Arm] 105/64 Blood Pressure Mean 77 Blood Pressure Mean [Left Arm] 77 Blood Pressure Position Blood Pressure Position [Left Arm] Lying Pulse Oximetry 100 100 100 Oxygen Delivery Method Nasal Cannula Nasal Cannula Oxygen Flow Rate 4 12/30/18 23:01 12/30/18 23:02 12/30/18 23:14 Temperature Temperature Source Sepsis Recent Fever Within 48 Hours Sepsis Action Taken by Nursing Pulse Rate 88 89 Pulse Rate [Right Finger] Pulse Rate from SpO2 Sensor 88 87 Pulse Rhythm Pulse Rhythm [Right Finger] Pulse Strength Pulse Strength [Right Finger] Respiratory Rate 52 H 22 Respiratory Effort / Characteristics Respiratory Depth Respiratory Pattern Blood Pressure 121/71 Blood Pressure [Left Arm] Blood Pressure Mean 87 Blood Pressure Mean [Left Arm] Blood Pressure Position Blood Pressure Position [Left Arm] Pulse Oximetry 100 100 Oxygen Delivery Method Nasal Cannula Nasal Cannula Oxygen Flow Rate 4 12/30/18 23:31 12/31/18 00:00 12/31/18 00:01 Temperature Temperature Source Sepsis Recent Fever Within 48 Hours Sepsis Action Taken by Nursing Pulse Rate 86 78 Pulse Rate [Right Finger] Pulse Rate from SpO2 Sensor 87 79 Pulse Rhythm Pulse Rhythm [Right Finger] Pulse Strength Pulse Strength [Right Finger] Respiratory Rate 28 H 31 H Respiratory Effort / Characteristics Respiratory Depth Respiratory Pattern Blood Pressure 108/65 102/64 Blood Pressure [Left Arm] Blood Pressure Mean 79 76 Blood Pressure Mean [Left Arm] Blood Pressure Position Blood Pressure Position [Left Arm] Pulse Oximetry 100 100 Oxygen Delivery Method Nasal Cannula Room Air Oxygen Flow Rate 3 12/31/18 00:47 12/31/18 03:03 Temperature 36.3 C L 37.0 C Temperature Source Oral Oral Sepsis Recent Fever Within 48 Hours Sepsis Action Taken by Nursing Pulse Rate Pulse Rate [Right Finger] 85 74 Pulse Rate from SpO2 Sensor Pulse Rhythm Pulse Rhythm [Right Finger] Pulse Strength Pulse Strength [Right Finger] Respiratory Rate 32 H 18 Respiratory Effort / Characteristics Spontaneous SOB on Exertion Respiratory Depth Normal Respiratory Pattern Tachypnea Blood Pressure Blood Pressure [Left Arm] 105/67 100/57 L Blood Pressure Mean Blood Pressure Mean [Left Arm] 79 71 Blood Pressure Position Blood Pressure Position [Left Arm] Lying Lying Pulse Oximetry 93 95 Oxygen Delivery Method Nasal Cannula Nasal Cannula Oxygen Flow Rate 2 2 VITALS: Vitals are noted on the nurse's note and reviewed by myself. GENERAL: This patient is a 73-year-old male, appears short of breath, chronically ill-appearing. SKIN: The skin was without rashes. EARS: External auditory canals clear, tympanic membranes pearly saxena without erythema or effusion bilaterally. EYES: Pupils equal round and reactive to light and accommodation. MOUTH: Poor dentition. Mucous membranes moist. Tonsils are not enlarged. Pharynx without erythema or exudate. NECK: Supple without nuchal rigidity. No lymphadenopathy. HEART: Regular rate and rhythm without murmurs gallops or rubs. LUNGS: Tachypnea. Decreased breath sounds throughout, left greater than right. ABDOMEN: Positive bowel sounds x 4. Soft, nontender to palpation. MUSCULOSKELETAL: Full range of motion throughout. EXTREMITIES: No peripheral edema. NEURO: Patient was alert and oriented to person place and time. Course Consultations Consultation #1: Dr. Swenson - [facility] [place] Administered Medications Pantoprazole Sodium (Protonix) 40 mg PO BID HOWARD Stop: 01/30/19 01:59 Last Admin: 12/31/18 01:26 Dose: 40 mg Documented by: [id number] Discontinued Medications Albuterol (Duoneb) 3 ml NEB NOW STA Stop: 12/30/18 21:53 Last Admin: 12/30/18 21:59 Dose: 3 ml Documented by: [id number] Budesonide/Formoterol Fumarate (Symbicort 160mcg/4.5mcg) 2 puffs INH BID HOWARD Stop: 01/30/19 00:43 Last Admin: 12/31/18 01:30 Dose: Not Given Documented by: [id number] Medical Decision Making Differential Diagnosis Differential diagnosis includes pneumonia, COPD exacerbation, inerstitial lung disease, ACS, CHF, among others. Medical Records Attestation: I reviewed the patient's medical records. Home Medications Current Medication List: was personally reviewed by me Laboratory Data Attestation: I reviewed the patient's lab results. Result diagrams: 12/30/18 21:10 12/30/18 21:10 Lab Results 12/30/18 12/30/18 12/30/18 Range/Units 21:10 21:10 21:10 WBC 11.98 H (4.8-10.8) K/uL RBC 3.78 L (4.7-6.1) M/uL Hgb 9.3 L (14.0-18.0) g/dL Hct 31.5 L (42-52) % MCV 83.3 (80-100) fL MCH 24.6 L (25-34) pg MCHC 29.5 L (32-36) g/dL RDW Std Deviation 54.4 H (36.4-46.3) fL RDW Coeff of Pramod 17.9 H (11.5-14.5) % Plt Count 459 H (130-400) K/uL MPV 10.4 (7.4-10.4) fL Immature Gran % (Auto) 1.0 % Neut % (Auto) 58.3 % Lymph % (Auto) 13.3 % Banks % (Auto) 13.5 % Eos % (Auto) 10.7 % Baso % (Auto) 3.2 % Immature Gran # (Auto) 0.12 H (0.00-0.02) K/uL Neut # (Auto) 6.99 H (1.4-6.5) K/uL Lymph # (Auto) 1.59 (1.2-3.4) K/uL Banks # (Auto) 1.62 H (0.11-0.59) K/uL Eos # (Auto) 1.28 H (0-0.5) K/uL Baso # (Auto) 0.38 H (0-0.2) K/uL Hypochromasia Present PT 11.6 (9.0-12.0) Seconds INR 1.1 (0.9-1.1) APTT 25.2 (21.0-31.0) Seconds PTT Ratio 0.9 Sodium 141 (136-145) mmol/L Potassium 4.1 (3.5-5.1) mmol/L Chloride 105 (98-107) mmol/L Carbon Dioxide 26 (21-32) mmol/L Anion Gap 10.0 (3-11) BUN 12 (7-18) mg/dl Creatinine 1.14 (0.6-1.4) mg/dl Est Cr Clr Drug Dosing 55.3 ml/min Est GFR ( Amer) 74.1 Est GFR (Non-Af Amer) 63.9 BUN/Creatinine Ratio 10.3 (10-20) Glucose 201 H (70-99) mg/dl Calcium 8.4 L (8.5-10.1) mg/dl Total Bilirubin 0.3 (0.2-1) mg/dl AST 12 L (15-37) U/L ALT 12 (12-78) U/L Alkaline Phosphatase 102 (45-117) U/L POC Troponin I (0-0.045) ng/ml NT-Pro-B Natriuret Pep 528 (0-900) pg/ml Total Protein 7.4 (6.4-8.2) gm/dl Albumin 3.3 L (3.4-5.0) gm/dl Globulin 4.1 H (2.5-4.0) gm/dl Albumin/Globulin Ratio 0.8 L (0.9-2) Influenza Type A Ag (Neg) Influenza Type B Ag (Neg) 12/30/18 12/30/18 Range/Units 21:43 21:58 WBC (4.8-10.8) K/uL RBC (4.7-6.1) M/uL Hgb (14.0-18.0) g/dL Hct (42-52) % MCV (80-100) fL MCH (25-34) pg MCHC (32-36) g/dL RDW Std Deviation (36.4-46.3) fL RDW Coeff of Pramod (11.5-14.5) % Plt Count (130-400) K/uL MPV (7.4-10.4) fL Immature Gran % (Auto) % Neut % (Auto) % Lymph % (Auto) % Banks % (Auto) % Eos % (Auto) % Baso % (Auto) % Immature Gran # (Auto) (0.00-0.02) K/uL Neut # (Auto) (1.4-6.5) K/uL Lymph # (Auto) (1.2-3.4) K/uL Banks # (Auto) (0.11-0.59) K/uL Eos # (Auto) (0-0.5) K/uL Baso # (Auto) (0-0.2) K/uL Hypochromasia PT (9.0-12.0) Seconds INR (0.9-1.1) APTT (21.0-31.0) Seconds PTT Ratio Sodium (136-145) mmol/L Potassium (3.5-5.1) mmol/L Chloride (98-107) mmol/L Carbon Dioxide (21-32) mmol/L Anion Gap (3-11) BUN (7-18) mg/dl Creatinine (0.6-1.4) mg/dl Est Cr Clr Drug Dosing ml/min Est GFR ( Amer) Est GFR (Non-Af Amer) BUN/Creatinine Ratio (10-20) Glucose (70-99) mg/dl Calcium (8.5-10.1) mg/dl Total Bilirubin (0.2-1) mg/dl AST (15-37) U/L ALT (12-78) U/L Alkaline Phosphatase (45-117) U/L POC Troponin I < 0.03 (0-0.045) ng/ml NT-Pro-B Natriuret Pep (0-900) pg/ml Total Protein (6.4-8.2) gm/dl Albumin (3.4-5.0) gm/dl Globulin (2.5-4.0) gm/dl Albumin/Globulin Ratio (0.9-2) Influenza Type A Ag Neg for Influ A (Neg) Influenza Type B Ag Neg for Influ B (Neg) Imaging Data Attestation: I personally reviewed and interpreted this imaging study as follows: Radiologist's Impression: XR chest 1V portable HISTORY: 73 years-old Male chest pain, sob acute atypical chest pain with shortness of breath COMPARISON: Chest radiograph 06/25/2018, CTA chest 06/25/2018 TECHNIQUE: Portable AP view of the chest FINDINGS: Cardiac silhouette is enlarged. Calcification the thoracic aortic arch. There is no pneumothorax or large pleural effusion. Severe emphysema with chronic interstitial coarsening. Chronic volume loss of the left lung with chronic cystic changes. Progressive bilateral interstitial opacities are noted particularly about the right lung. Degenerative changes of the shoulders and spine. Dilation of the pulmonary arteries. IMPRESSION: 1. Emphysema with chronic interstitial lung disease and chronic left lung volume loss. 2. Cardiomegaly with pulmonary arterial hypertension. 3. Progressively worsened interstitial opacities of the bilateral lungs is suggestive of pulmonary edema. Atypical infectious or inflammatory pneumonitis is also within the differential. 4. No large pleural effusion. ECG Data Attestation: I personally reviewed and interpreted this ECG as follows: Indication: chest pain Rate (beats per minute): 100 Rhythm: normal sinus Findings: + other (baseline artifact), + Q waves (Inferior) and + RBBB Change: no significant change Blood Pressure Blood Pressure Findings: Normal blood pressure Blood Pressure Disposition: did not require urgent referral MDM Narrative The patient is a 73-year-old male who presents today complaining of chest pain and shortness of breath. Patient reports he has had a history of the symptoms ongoing over the past few years which have been worsening significantly over the past 1-2 months. On initial exam, the patient was hypoxic and his nasal cannula oxygen was increased to 4 L. Labs revealed mild leukocytosis. Patient is anemic with a hemoglobin of 9.3. He does typically have a mild anemia, although this is decreased compared to the most recent labs done at this facility. There were no concerning electrolyte abnormalities. Troponin was negative. BNP was not elevated. Chest x-ray shows chronic interstitial lung disease with some worsening opacities bilaterally. I believe that the patient's symptoms are likely multifactorial. He has severe interstitial lung disease which likely contributes to most of his shortness of breath, although he does have a history of coronary artery disease and given the patient's explanation of his symptoms, it seems there is also some element of anxiety. Given the patient's hypoxia and significant decline while at home recently, I do feel he would benefit from inpatient stay and evaluation. The patient was agreeable with this plan. [facility] Impression & Plan Hypoxia Discharge Plan Visit Data *Final* Discharge Date/Time: 12/31/18 00:27 Chief Complaint: Shortness of Breath/Dyspnea Stated Complaint: SOB, CHEST PAIN ED Provider: Ruddy Cole ED Midlevel Provider: Joann Barreto Discharge Problem: Hypoxia Patient Disposition: Admitted As Inpatient Discharge Instructions Interventions: ED Discharge Assessment Last Done: 12/31/18 00:27
--- NOTE | 2018-12-30 22:36 | XRay Report ---
XR chest 1V portable HISTORY: 73 years-old Male chest pain, sob acute atypical chest pain with shortness of breath COMPARISON: Chest radiograph 06/25/2018, CTA chest 06/25/2018 TECHNIQUE: Portable AP view of the chest FINDINGS: Cardiac silhouette is enlarged. Calcification the thoracic aortic arch. There is no pneumothorax or l arge pleural effusion. Severe emphysema with chronic interstitial coarsening. Chronic volume loss of the left lung with chronic cystic changes. Progressive bilateral interstitial opacities are noted par ticularly about the right lung. Degenerative changes of the shoulders and spine. Dilation of the pulm onary arteries. IMPRESSION: 1. Emphysema with chronic interstitial lung disease and chronic left lung volume loss. 2. Cardiomegaly with pulmonary arterial hypertension. 3. Progressively worsened interstitial opacities of the bilateral lungs is suggestive of pulmonary ed kayleen. Atypical infectious or inflammatory pneumonitis is also within the differential. 4. No large pleural effusion. The above report was generated using voice recognition software. It may contain grammatical, syntax o r spelling errors. Electronically signed by: Vipul Block M.D. 12/30/2018 10:35 PM
[2018-12-30 22:48] LABS: Hematocrit (blood only) 31.5 % (42-52); Hemoglobin 9.3 g/dL (14.0-18.0); Mean Corpuscular Hgb Conc 29.5 g/dL (32-36); Mean Corpuscular Volume 83.3 fL (80-100); Mean Platelet Volume 10.4 fL (7.4-10.4); Platelet Count 459 K/uL (130-400); RDW Coefficient of Variation 17.9 % (11.5-14.5); RDW Standard Deviation 54.4 fL (36.4-46.3); Red Blood Count 3.78 M/uL (4.7-6.1); White Blood Count 11.98 K/uL (4.8-10.8)
[2018-12-30 22:55] LABS: Basophils # (auto) 0.38 K/uL (0-0.2); Basophils % (auto) 3.2 %; Eosinophils # (auto) 1.28 K/uL (0-0.5); Eosinophils % (auto) 10.7 %; Hypochromasia Present; Immature Granulocytes # (auto) 0.12 K/uL (0.00-0.02); Lymphocytes # (auto) 1.59 K/uL (1.2-3.4); Lymphocytes % (auto) 13.3 %; Monocytes # (auto) 1.62 K/uL (0.11-0.59); Monocytes % (auto) 13.5 %; Neutrophils # (auto) 6.99 K/uL (1.4-6.5); Neutrophils % (auto) 58.3 %
--- NOTE | 2018-12-30 23:50 | History & Physical Report ---
Date of Service December 30, 2018 Assessment & Plan (1) Chest pain: Acute onset of chest pain associated with exertion and shortness of breath/CAD/history of NM-- The patient will be admitted to telemetry for serial cardiac enzymes, serial EKG's, and cardiac rhythm monitoring. Differentiation between cardiac issues versus aggravation of ongoing respiratory issues. Suspect the latter, but with his history, needs to be ruled out. Continue clopidogrel 75 mg p.o. daily, isosorbide mononitrate 30 mg p.o. daily, metoprolol succinate 100 mg p.o. daily, nitroglycerin sublingual as needed. Present on Admission?: Yes (2) Acute on chronic respiratory failure with hypoxia: Acute on chronic respiratory failure with hypoxia/silicosis/pulmonary artery hypertension-- Secondary to exposures while working at [employer] in [place]. Progressively worsening, in particular over the past 2 years. He appears to be back more toward his baseline while at rest at this time while in the ED. Continue his current regimen of Symbicort 2 puffs twice daily, fexofenadine 100 mg p.o. daily, Combivent Respimat 1 inhalation 4 times daily. We will continue duo nebs 4 times daily, and add every 2 hours as needed. Add Pulmicort Respules 0.5 mg inhaled twice daily, and he should be sent home with this prescription. Continue prednisone 10 mg p.o. daily. Do not think he will need stress dose steroids. He follows with Dr. Carrillo from pulmonology. He may deserve a trial of sildenafil in spite of being on isosorbide mononitrate, since he has become that physically inactive, that he is not likely to precipitate an orthostatic hypotension event. Present on Admission?: Yes (3) Silicosis: As above. Present on Admission?: Yes (4) CLL (chronic lymphocytic leukemia): On no current treatment this time. Present on Admission?: Yes (5) CAD (coronary artery disease): As noted above. Present on Admission?: Yes (6) History of NM (myocardial infarction): As noted above Present on Admission?: Yes (7) Pulmonary artery hypertension: As noted above. Secondary to silicosis and chronic respiratory failure with hypoxia. Suspect that he is not on sildenafil because of being on isosorbide mononitrate, however, he has become that physically inactive, that orthostatic hypotension would not likely be a significant issue. Present on Admission?: Yes History of Present Illness Chief Complaint: The patient presents to the emergency department via EMS due to the acute onset of chest pain or shortness of breath earlier in the day today. 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 He took 3 nitroglycerin sublingual's and was given 324 mg aspirin by EMS that only partially relieved his pain. He has had progressively worsening shortness of breath and chest pain over the past 2 years due to progression of his interstitial lung disease/silicosis, and has become severely deconditioned and developed symptoms with minimal exertion. He has had progressive weight loss and generalized fatigue over the past 2 years as well due to decreased oral intake due to lack of appetite. Allergies Allergy/AdvReac Type Severity Reaction Status Date / Time levofloxacin AdvReac Intermediate swelling Verified 12/30/18 21:57 zolpidem AdvReac Intermediate Hallucinati Verified 12/30/18 21:57 ons. Home Medications Home Medications Medication Instructions Recorded Confirmed Type budesonide-formoterol [Symbicort] 2 puff INHALATION BID 12/30/18 12/30/18 History celecoxib 200 mg PO DAILY 12/30/18 12/30/18 History clopidogrel [Plavix] 75 mg PO DAILY 12/30/18 12/30/18 History fexofenadine 180 mg PO DAILY 12/30/18 12/30/18 History ipratropium-albuterol 3 ml INHALATION QID 12/30/18 12/30/18 History ipratropium-albuterol [Combivent 1 puff INHALATION QID 12/30/18 12/30/18 History Respimat] isosorbide mononitrate 30 mg PO DAILY 12/30/18 12/30/18 History lorazepam 0.5 mg PO DAILY PRN 12/30/18 12/30/18 History metoprolol succinate 100 mg PO DAILY 12/30/18 12/30/18 History montelukast 10 mg PO DAILY 12/30/18 12/30/18 History nitroglycerin [Nitrostat] 0.4 mg SUBLINGUAL DIRECTED PRN 12/30/18 12/30/18 History pantoprazole 40 mg PO BID 12/30/18 12/30/18 History paroxetine HCl [Paxil] 10 mg PO DAILY 12/30/18 12/30/18 History pravastatin 80 mg PO DAILY 12/30/18 12/30/18 History prednisone 10 mg PO DAILY 12/30/18 12/30/18 History Past Med/Surg History Medical History Silicosis (Chronic) Social History Preferred Language: Ukrainian Communication Ability: Effective Associate Professor Of 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 Required: No Beliefs That Will Affect Care: None Current Living Situation: Spouse Feels Safe at Home: Yes Safety Concerns: Feels Safe At This Time Smoking Status: Light tobacco smoker Hx Alcohol Use: No Hx Substance Use: No Review of Systems The patient denies lower extremity swelling, sore throat, fevers, chills, sweats, nausea, vomiting, diarrhea , constipation, abdominal pain, pelvic pain, blood in urine or stool, dysuria, urinary frequency or urgency, lightheadedness, dizziness, headache, memory loss, loss of consciousness, rash, abnormal br uising or bleeding, imbalance, focal weakness, numbness or tingling in arms or legs, generalized arthralgias or myalgias, back or neck pain, or night sweats. The review of systems is otherwise negative other than for that already noted above, and at least 10 systems have been reviewed. Physical Exam Vital Signs (Past 24 Hours): Last Vital Signs Pulse 88 12/30/18 23:01 Resp 52 H 12/30/18 23:01 BP 121/71 12/30/18 23:01 Pulse Ox 100 12/30/18 23:01 Physical Exam: The patient is awake, alert and oriented 3, looks significantly more emaciated since last I saw him one year ago, normocephalic and atraumatic, lying in bed and in mild respiratory distress at rest. HEENT--PERRL, EOMI, mucous membranes and oropharynx dry. Neck--supple. No JVD. No bruits. Thyroid normal, trachea midline, no adenopathy. Heart--normal S1 and S2. No murmurs, rubs or gallops. Lungs--coarse breath sounds throughout, overall diminished. Mild respiratory distress with accessory muscle use. Abdomen--normal bowel sounds and soft. Nontender. Nondistended. Extremities--no cyanosis or clubbing. No edema. There are good distal pulses b/l. Dermatologic--normal skin turgor, normal color, no abnormal lymph nodes, no rash. Neurologic--cranial nerves II through XII grossly intact. Rheumatologic--normal range of motion. Psychiatric--normal affect. Results & Data Laboratory Results Laboratory Results WBC 11.98 K/uL (4.8-10.8) H 12/30/18 21:10 RBC 3.78 M/uL (4.7-6.1) L 12/30/18 21:10 Hgb 9.3 g/dL (14.0-18.0) L 12/30/18 21:10 Hct 31.5 % (42-52) L 12/30/18 21:10 MCV 83.3 fL (80-100) 12/30/18 21:10 MCH 24.6 pg (25-34) L 12/30/18 21:10 MCHC 29.5 g/dL (32-36) L 12/30/18 21:10 RDW Std Deviation 54.4 fL (36.4-46.3) H 12/30/18 21:10 RDW Coeff of Pramod 17.9 % (11.5-14.5) H 12/30/18 21:10 Plt Count 459 K/uL (130-400) H 12/30/18 21:10 MPV 10.4 fL (7.4-10.4) 12/30/18 21:10 Immature Gran % (Auto) 1.0 % 12/30/18 21:10 Neut % (Auto) 58.3 % 12/30/18 21:10 Lymph % (Auto) 13.3 % 12/30/18 21:10 Blount % (Auto) 13.5 % 12/30/18 21:10 Eos % (Auto) 10.7 % 12/30/18 21:10 Baso % (Auto) 3.2 % 12/30/18 21:10 Immature Gran # (Auto) 0.12 K/uL (0.00-0.02) H 12/30/18 21:10 Neut # (Auto) 6.99 K/uL (1.4-6.5) H 12/30/18 21:10 Lymph # (Auto) 1.59 K/uL (1.2-3.4) 12/30/18 21:10 Blount # (Auto) 1.62 K/uL (0.11-0.59) H 12/30/18 21:10 Eos # (Auto) 1.28 K/uL (0-0.5) H 12/30/18 21:10 Baso # (Auto) 0.38 K/uL (0-0.2) H 12/30/18 21:10 Hypochromasia Present 12/30/18 21:10 PT 11.6 Seconds (9.0-12.0) 12/30/18 21:10 INR 1.1 (0.9-1.1) 12/30/18 21:10 APTT 25.2 Seconds (21.0-31.0) 12/30/18 21:10 PTT Ratio 0.9 12/30/18 21:10 Sodium 141 mmol/L (136-145) 12/30/18 21:10 Potassium 4.1 mmol/L (3.5-5.1) 12/30/18 21:10 Chloride 105 mmol/L (98-107) 12/30/18 21:10 Carbon Dioxide 26 mmol/L (21-32) 12/30/18 21:10 Anion Gap 10.0 (3-11) 12/30/18 21:10 BUN 12 mg/dl (7-18) 12/30/18 21:10 Creatinine 1.14 mg/dl (0.6-1.4) 12/30/18 21:10 Est Cr Clr Drug Dosing 55.3 ml/min 12/30/18 21:10 Est GFR ( Amer) 74.1 12/30/18 21:10 Est GFR (Non-Af Amer) 63.9 12/30/18 21:10 BUN/Creatinine Ratio 10.3 (10-20) 12/30/18 21:10 Glucose 201 mg/dl (70-99) H 12/30/18 21:10 Calcium 8.4 mg/dl (8.5-10.1) L 12/30/18 21:10 Total Bilirubin 0.3 mg/dl (0.2-1) 12/30/18 21:10 AST 12 U/L (15-37) L 12/30/18 21:10 ALT 12 U/L (12-78) 12/30/18 21:10 Alkaline Phosphatase 102 U/L (45-117) 12/30/18 21:10 POC Troponin I < 0.03 ng/ml (0-0.045) 12/30/18 21:43 NT-Pro-B Natriuret Pep 528 pg/ml (0-900) 12/30/18 21:10 Total Protein 7.4 gm/dl (6.4-8.2) 12/30/18 21:10 Albumin 3.3 gm/dl (3.4-5.0) L 12/30/18 21:10 Globulin 4.1 gm/dl (2.5-4.0) H 12/30/18 21:10 Albumin/Globulin Ratio 0.8 (0.9-2) L 12/30/18 21:10 Influenza Type A Ag Neg for Influ A (Neg) 12/30/18 21:58 Influenza Type B Ag Neg for Influ B (Neg) 12/30/18 21:58 Diagnostic Findings [facility], [place] [phone] XRay Report Patient: JOSÉ BARAJAS JRAdmit Date: 12/30/18 MR#: [id number]: 42 [facility] Acct ID:[id number]: Date: 1945[facility] Zip: [place] [address] Age: 73Location: ED Sex: M Room/Bed: Att Phy: Diagnosis: SOB Henny Phy: Lenora Jefferson, DOService Date: 12/30/18 Fam Phy: Interpreting Phy: Cliff Block Admit Phy: Ordering Phy: Joann Barreto PA-C cc: ~ XR chest 1V portable HISTORY: 73 years-old Male chest pain, sob acute atypical chest pain with shortness of breath COMPARISON: Chest radiograph 06/25/2018, CTA chest 06/25/2018 TECHNIQUE: Portable AP view of the chest FINDINGS: Cardiac silhouette is enlarged. Calcification the thoracic aortic arch. There is no pneumothorax or large pleural effusion. Severe emphysema with chronic interstitial coarsening. Chronic volume loss of the left lung with chronic cystic changes. Progressive bilateral interstitial opacities are noted particularly about the right lung. Degenerative changes of the shoulders and spine. Dilation of the pulmonary arteries. IMPRESSION: 1. Emphysema with chronic interstitial lung disease and chronic left lung volume loss. 2. Cardiomegaly with pulmonary arterial hypertension. 3. Progressively worsened interstitial opacities of the bilateral lungs is suggestive of pulmonary edema. Atypical infectious or inflammatory pneumonitis is also within the differential. 4. No large pleural effusion. The above report was generated using voice recognition software. It may contain grammatical, syntax or spelling errors. Electronically signed by: Vipul Block M.D. 12/30/2018 10:35 PM Medications Administered Home Medications Medication Instructions Recorded Confirmed budesonide-formoterol [Symbicort] 2 puff INHALATION BID 12/30/18 12/30/18 celecoxib 200 mg PO DAILY 12/30/18 12/30/18 clopidogrel [Plavix] 75 mg PO DAILY 12/30/18 12/30/18 fexofenadine 180 mg PO DAILY 12/30/18 12/30/18 ipratropium-albuterol 3 ml INHALATION QID 12/30/18 12/30/18 ipratropium-albuterol [Combivent 1 puff INHALATION QID 12/30/18 12/30/18 Respimat] isosorbide mononitrate 30 mg PO DAILY 12/30/18 12/30/18 lorazepam 0.5 mg PO DAILY PRN 12/30/18 12/30/18 metoprolol succinate 100 mg PO DAILY 12/30/18 12/30/18 montelukast 10 mg PO DAILY 12/30/18 12/30/18 nitroglycerin [Nitrostat] 0.4 mg SUBLINGUAL DIRECTED PRN 12/30/18 12/30/18 pantoprazole 40 mg PO BID 12/30/18 12/30/18 paroxetine HCl [Paxil] 10 mg PO DAILY 12/30/18 12/30/18 pravastatin 80 mg PO DAILY 12/30/18 12/30/18 prednisone 10 mg PO DAILY 12/30/18 12/30/18 Code Status & VTE Plan VTE Prophylaxis Plan VTE Prophylaxis will be ordered: Yes
[2018-12-31] MEDS ORDERED: ACETAMINOPHEN 1000 MG/100 ML IV IV PRN (00:44)
[2018-12-31] MEDS ORDERED: BUDESONIDE/FORMOTEROL FUMARATE 160/4.5 60 PUFFS/INHALER INH SCH (00:44)
[2018-12-31] MEDS: PANTOprazole 40 MG TAB PO SCH ×3 (01:26→20:27)
[2018-12-31 01:46] LABS: INR 1.1 (0.9-1.1); Partial Thromboplastin Ratio 0.9; Partial Thromboplastin Time 25.2 Seconds (21.0-31.0); Prothrombin Time 11.6 Seconds (9.0-12.0)
[2018-12-31] MEDS: BUDESONIDE 0.5 MG/2 ML VIAL (PULMICORT) NEB SCH ×3 (04:30→19:50)
[2018-12-31 05:58] LABS: Basophils # (auto) 0.34 K/uL (0-0.2); Basophils % (auto) 2.4 %; Eosinophils % (auto) 6.2 %; Hemoglobin 7.9 g/dL (14.0-18.0); Immature Granulocytes # (auto) 0.04 K/uL (0.00-0.02); Immature Granulocytes % (auto) 0.3 %; Lymphocytes # (auto) 0.75 K/uL (1.2-3.4); Lymphocytes % (auto) 5.2 %; Mean Corpuscular Hgb Conc 29.3 g/dL (32-36); Mean Corpuscular Volume 82.3 fL (80-100); Mean Platelet Volume 10.2 fL (7.4-10.4); Monocytes # (auto) 1.45 K/uL (0.11-0.59); Monocytes % (auto) 10.1 %; Neutrophils # (auto) 10.94 K/uL (1.4-6.5); Neutrophils % (auto) 75.8 %; Platelet Count 356 K/uL (130-400); RDW Coefficient of Variation 17.6 % (11.5-14.5); RDW Standard Deviation 53.5 fL (36.4-46.3); Red Blood Count 3.28 M/uL (4.7-6.1); White Blood Count 14.42 K/uL (4.8-10.8)
[2018-12-31 06:27] LABS: INR 1.2 (0.9-1.1); Partial Thromboplastin Time 26.3 Seconds (21.0-31.0); Prothrombin Time 11.9 Seconds (9.0-12.0)
[2018-12-31 06:28] LABS: Albumin Level 2.9 gm/dl (3.4-5.0); BUN Creatinine Ratio 12.2 (10-20); Creatinine Clr Calc Pharmacy 60.1 ml/min; Est GFR (African American) 88.9; Est GFR (Non-African American) 76.7; Potassium 4.2 mmol/L (3.5-5.1)
[2018-12-31] MEDS ORDERED: INFLUENZA ADMINISTRATION CHARGE ONE ×2 (06:30→09:00)
[2018-12-31] MEDS ORDERED: INFLUENZA VACCINE HIGH DOSE 65+ 0.5 ML SYR IM ONE ×2 (06:30→09:00)
[2018-12-31 06:31] LABS: Albumin Globulin Ratio 0.8 (0.9-2); Bilirubin,Total 0.3 mg/dl (0.2-1); Globulin 3.6 gm/dl (2.5-4.0); Total Protein 6.5 gm/dl (6.4-8.2)
[2018-12-31 06:40] LABS: Hypochromasia Present; Ovalocytes 1+
[2018-12-31] MEDS: ALBUT/IPRATROP 3MG/0.5MG NEB 3 ML VIAL INH SCH ×4 (07:03→19:49)
[2018-12-31] MEDS: CeleBREX 200 MG CAP PO SCH (08:08)
[2018-12-31] MEDS: PARoxetine HCl 10 MG TAB PO SCH (08:08)
[2018-12-31] MEDS: HEPARIN SOD 5,000 UNIT/0.5 ML VIAL SQ SCH ×2 (08:08→20:26)
[2018-12-31] MEDS: FEXOFENADINE HCL 180 MG TAB PO SCH (08:08)
[2018-12-31] MEDS: METOPROLOL SUCC 50MG EXT REL TAB PO SCH (08:09)
[2018-12-31] MEDS: CLOPIDOGREL BISULFATE 75 MG TAB PO SCH (08:09)
[2018-12-31] MEDS: ISOSORBIDE MONO EXTENDED REL 30 MG TABCR PO SCH (08:09)
[2018-12-31] MEDS: MONTELUKAST SODIUM 10 MG TABLET PO SCH (08:09)
[2018-12-31] MEDS: predniSONE 10 MG TABLET PO SCH (08:09)
[2018-12-31] MEDS ORDERED: IPRATROPIUM BROMIDE/ALBUTEROL respimat INH INH SCH (09:00)
[2018-12-31] MEDS ORDERED: AZITHROMYCIN 250 MG TAB PO ONE (11:15)
[2018-12-31] MEDS ORDERED: SODIUM CHLORIDE 0.9% 1000ML 1,000 ML IV ONE (12:30)
[2018-12-31] MEDS ORDERED: SODIUM CHLORIDE 0.9% 500 ML IV ONE (15:14)
[2018-12-31] MEDS: ACETAMINOPHEN 325 MG TAB PO PRN (17:15)
--- NOTE | 2018-12-31 18:03 | Hospitalist Progress Note ---
Date of Service December 31, 2018 Assessment & Plan (1) Hypotension: He is surprisingly asymptomatic with this -He shows no clear reason for to be cardiogenic shock, he is not septic for to be distributive type shock from (however med related "pseudo-distributive" certainly is possible see below), he had no volume loss for this to be hypovolemic (other than may be a bit of poor p.o. intake making him mildly hypovolemic, and he has no reason for it to be neurogenic shock -Seems most likely that he is hypotensive related to his antihypertensive medicines. We will put these on hold, he has been given 1500 mL of fluid, and given his cardiac history as well as his relatively mild symptoms, we will continue with careful watchful waiting and limited activity with the hope that his blood pressures will continue to resolve. This is weighed against the risk of fluid overloading him given that he does have diastolic CHF (both diastolic dysfunction and leaking mitral valve noted on echo from a little under a year ago), continue close observation and serial labs, and fluids as needed, but most importantly hold his antihypertensives and follow (2) Dyspnea on exertion: The differential for this seems to be fairly broad, including hypotension causing dyspnea on exertion from meds as above, versus acute because of a acute on chronic, pulmonary infection, versus dyspnea on exertion related to unstable angina. -Holding blood pressure meds as above -Treating respiratory infection as below -Dobutamine stress echo once able (3) Chest pain: See above (4) Acute on chronic respiratory failure with hypoxia: Chronic pulmonary failure related to silicosis -Acute appears to be a respiratory infection related, treat with Zithromax to cover atypicals, inhalers and supportive care, follow closely (5) Silicosis: As above. This appears to be the root cause of his chronic respiratory failure (6) CLL (chronic lymphocytic leukemia): On no current treatment this time. (7) CAD (coronary artery disease): Cardiac enzymes are negative, his dyspnea on exertion is most likely more explainable by his low blood pressures or lungs, but certainly unstable angina needs to be ruled out with a stress echo once he is able (8) History of NV (myocardial infarction): As noted above (9) Pulmonary artery hypertension: As noted above. Secondary to silicosis and chronic respiratory failure with hypoxia. Consider a PDE, although it may be of limited benefit (10) DVT prophylaxis: Heparin subcu Subjective Patient seen multiple times today Generally feels tired and short of breath with exertion, may be mildly short of breath at rest. He notes that his shortness of breath with exertion is his main worsening symptoms, and it has been going on for about the last month gradually worsening. At this point if he tries to walk much at all it would be short of breath Does not seem to have much of any chest pain Maybe is a little bit of a cough that is new a little bit of feeling like he is got a respiratory infection certainly nothing overwhelming but it is positive over the last few days No overt fevers chills or sweats No significant lightheaded, but he is quite weak and tired On revisit because of low blood pressures he essentially feels exactly the same as earlier. Review of Systems All systems reviewed & are unremarkable except as noted in HPI & below Physical Exam Vital Signs (Past 24 Hours): Last Vital Signs Temp 36.6 C 12/31/18 15:13 Pulse 74 12/31/18 17:11 Resp 18 12/31/18 15:18 BP 76/44 L 12/31/18 17:11 Pulse Ox 95 12/31/18 17:11 Physical Exam: Both exams today the same In general he is awake alert oriented x3 pleasant no distress HEENT normocephalic atraumatic mucous membranes on the dry side of normal, poor dentition Cardio distant no rubs murmurs gallops Lungs diffuse dry sounding crackles a bit asymmetric, no rhonchi no wheezes Abdomen soft nondistended nontender no masses or organomegaly Skin shows no rashes no pallor icterus Neuro cranial nerves II through XII are grossly intact gross motor and sensory intact Mental status good recent and remote recall
[2018-12-31] MEDS: LORazepam 0.5 MG TAB PO PRN (18:57)
[2018-12-31] MEDS: PRAVASTATIN SOD 40 MG TAB PO SCH (20:27)
[2018-12-31] MEDS ORDERED: ALBUMIN 25% 50 ML IV ONE (22:15)
[2019-01-01 00:33] LABS: Appearance Urine Clear (Clear); Bilirubin Urine Negative (Negative); Blood Urine Negative (Negative); Color Urine Dark Yellow; Glucose Urine UA Negative (Negative); Ketones Urine Negative (Negative); Leukocyte Esterase Urine Negative (Negative); Nitrite Urine Negative (Negative); Protein Urine Negative (Negative); Specific Gravity Urine 1.031 (1.000-1.030); Urobilinogen Urine Negative (Negative)
[2019-01-01 05:42] LABS: Hematocrit (blood only) 22.7 % (42-52); Hemoglobin 6.9 g/dL (14.0-18.0); Mean Corpuscular Hgb Conc 30.4 g/dL (32-36); Mean Corpuscular Volume 81.7 fL (80-100); Mean Platelet Volume 10.6 fL (7.4-10.4); Platelet Count 300 K/uL (130-400); RDW Coefficient of Variation 17.6 % (11.5-14.5); RDW Standard Deviation 52.8 fL (36.4-46.3); Red Blood Count 2.78 M/uL (4.7-6.1); White Blood Count 13.28 K/uL (4.8-10.8)
[2019-01-01 05:44] LABS: Basophils # (auto) 0.27 K/uL (0-0.2); Eosinophils # (auto) 0.99 K/uL (0-0.5); Eosinophils % (auto) 7.5 %; Hypochromasia Present; Immature Granulocytes # (auto) 0.03 K/uL (0.00-0.02); Immature Granulocytes % (auto) 0.2 %; Lymphocytes # (auto) 0.66 K/uL (1.2-3.4); Monocytes # (auto) 2.14 K/uL (0.11-0.59); Monocytes % (auto) 16.1 %; Neutrophils # (auto) 9.19 K/uL (1.4-6.5); Neutrophils % (auto) 69.2 %; Ovalocytes 1+
[2019-01-01 05:48] LABS: BUN Creatinine Ratio 11.6 (10-20); Calcium 7.7 mg/dl (8.5-10.1); Creatinine Clr Calc Pharmacy 60.8 ml/min; Est GFR (Non-African American) 77.7; Potassium 4.1 mmol/L (3.5-5.1)
[2019-01-01] MEDS ORDERED: SODIUM CHLORIDE 0.9% 250 ML IV PRN ×2 (05:51→11:13)
[2019-01-01] MEDS: BUDESONIDE 0.5 MG/2 ML VIAL (PULMICORT) NEB SCH ×2 (07:16→19:01)
[2019-01-01] MEDS: ALBUT/IPRATROP 3MG/0.5MG NEB 3 ML VIAL INH SCH ×4 (07:16→19:01)
[2019-01-01] MEDS: NITROGLYCERIN SL 0.4 MG/TAB TAB SL PRN ×2 (08:37→12:47)
[2019-01-01] MEDS: LORazepam 0.5 MG TAB PO PRN ×2 (08:38→12:56)
[2019-01-01] MEDS: predniSONE 10 MG TABLET PO SCH (08:45)
[2019-01-01] MEDS: PANTOprazole 40 MG TAB PO SCH ×2 (08:45→20:47)
[2019-01-01] MEDS: CLOPIDOGREL BISULFATE 75 MG TAB PO SCH (08:45)
[2019-01-01] MEDS: MONTELUKAST SODIUM 10 MG TABLET PO SCH (08:46)
[2019-01-01] MEDS: AZITHROMYCIN 250 MG TAB PO SCH (08:46)
[2019-01-01] MEDS: HEPARIN SOD 5,000 UNIT/0.5 ML VIAL SQ SCH (08:46)
[2019-01-01] MEDS: FEXOFENADINE HCL 180 MG TAB PO SCH (08:46)
[2019-01-01] MEDS: PARoxetine HCl 10 MG TAB PO SCH (08:46)
[2019-01-01 09:08] LABS: Reticulocyte % 1.4 % (0.5-2.0); Reticulocytes # 0.04 10^6/uL (0.02-0.10)
--- NOTE | 2019-01-01 11:45 | Gastrointestinal Consultation ---
Date of Consultation January 01, 2019 Assessment & Plan (1) Anemia: He has reports of melena though non active at bedside. Per history- likely NSAID induced (has been on Celebrex) and possibly related to prior stenosis (NSAIDs often cause ulcerations where there is stenotic narrowing). He does not c/o any obstructive symptoms so likely not a significant stenosis currently. Despite anemia and reports of melena per the nurse, he is hemodynamically stable and without overt melena currnetly and his BUN remains normal which is reassuring that if truly a GI bleed it is a slow GI bleed. Because he is high risk for sedation, would favor supportive care - fluids and blood rescusitation and holding Plavix, heparin and watching very carefully. If his bleeding becomes more brisk, then we may have to perform an emergent EGD. Otherwise, would favor allowing completion of cardiac w/u prior. H e was scheduled for cardiac stress test today which has been postponed. Also, he was on Celebrex prior to admission. Would favor not restarting that if pain can be managed by other non-NSAID medications. Present on Admission?: No Supervising Physician Co-Signing Physician Notes I have seen and examined the patient and discussed the management with Juan Jessica. The patient has been seen by Dr. Jenkins from GI in the past and had an egd last by him. Signifcant copd history. Admitted with sob- found to have cardiomegaly, mild pleural effusions. No active melena per my exam when seeing the patient. He does have anemia without a current BUN rise. History of reported celebrex use - unclear if he has been taking an outpatient PPI. Exam significant for mild paleness, working slightly to breathe, benign belly exam. Labs and xray reviewed. The patient is agreeable to not pursuing an egd at this time as is the hosptialist team as well. Agree with supportive management for now- transfusion, IV PPI, trend hgb/bun/cr and further plan of care as per Juan Jessica's assessment and plan. History of Present Illness Reason for Consultation: anemia, heme positive stools, prior PUD Requesting Physician: Dr. Gates Attending Physician: Ruddy Gates, DO History of Present Illness This consult was placed for [facility]. We will be happy to provide care in Dr. Jenkins's absence. Mr. Simon Womack is a 73 yr old male with a history of CAD on Plavix, COPD, pulmonary artery hypertension, CLL, silicosis, diverticulitis who presented to the emergency department on 12/30 with complaint of chest pain and is being treated for acute on chronic respiratory failure. GI is consulted for anemia,anemia, heme positive stools, prior PUD. Hemoglobin on arrival 9.3, yesterday 7.9, and this morning 6.9. BUN has remained normal, today 11.He is on 2L of O2 by [place] and is saturating in the low 90's. HR 95 - 105. He is normal tensive. His nurse tells me that the melena began today - 2 loose small BMs. The pt is awake, alert, oriented. Though no abdominal pain, he is mildly tender in the RUQ and epigastric area. He reports having taken 1 ASA/day for a week, about 2 weeks ago. He has a hx of multiple prior EGDs, most recently in [address] Jenkins for dilation of a pyloric stenosis. Most recent colonoscopy was in 2014 with hemorrhoids. Allergies Allergy/AdvReac Type Severity Reaction Status Date / Time levofloxacin AdvReac Intermediate swelling Verified 12/30/18 21:57 zolpidem AdvReac Intermediate Hallucinati Verified 12/30/18 21:57 ons. Home Medications Home Medications Medication Instructions Recorded Confirmed Type budesonide-formoterol [Symbicort] 2 puff INHALATION BID 12/30/18 12/30/18 Hi story celecoxib 200 mg PO DAILY 12/30/18 12/30/18 History clopidogrel [Plavix] 75 mg PO DAILY 12/30/18 12/30/18 History fexofenadine 180 mg PO DAILY 12/30/18 12/30/18 History ipratropium-albuterol 3 ml INHALATION QID 12/30/18 12/30/18 History ipratropium-albuterol [Combivent 1 puff INHALATION QID 12/30/18 12/30/18 History Respimat] isosorbide mononitrate 30 mg PO DAILY 12/30/18 12/30/18 History lorazepam 0.5 mg PO DAILY PRN 12/30/18 12/30/18 History metoprolol succinate 100 mg PO DAILY 12/30/18 12/30/18 History montelukast 10 mg PO DAILY 12/30/18 12/30/18 History nitroglycerin [Nitrostat] 0.4 mg SUBLINGUAL DIRECTED PRN 12/30/18 12/30/18 History pantoprazole 40 mg PO BID 12/30/18 12/30/18 History paroxetine HCl [Paxil] 10 mg PO DAILY 12/30/18 12/30/18 History pravastatin 80 mg PO DAILY 12/30/18 12/30/18 History prednisone 10 mg PO DAILY 12/30/18 12/30/18 History Patient History Medical History Silicosis (Chronic) Social History Communication Ability: Effective Beliefs That Will Affect Care: None Current Living Situation: Spouse Feels Safe at Home: Yes Safety Concerns: Feels Safe At This Time Smoking Status: Light tobacco smoker Hx Alcohol Use: No Hx Substance Use: No Review of Systems Gen: Denies fever, weakness, weight loss. Eyes: no vision changes, no eye redness or pain Respiratory: + SOB, chronic cough Cardiovascular: left sided CP, improved since admission, no irregular heartbeats Abdomen: No abdominal pain, no nausea/vomiting, denies any black BMs or diarrhea prior to admission. Ext: No edema Hem: No excessive bruising/bleeding Physical Exam Vital Signs (Past 24 Hours): Last Vital Signs Temp 37.1 C 01/01/19 11:09 Pulse 84 01/01/19 11:09 Resp 35 H 01/01/19 11:09 BP 117/82 01/01/19 11:09 Pulse Ox 100 01/01/19 11:09 Constitutional: WD/WN, vitals as above + ill appearing, + thin and cooperative Eyes: PERRL, conjunctivae normal, anicteric sclerae ENMT: external ear and nose normal, oropharynx normal Neck: trachea midline, no thyromegaly Respiratory: normal respiratory effort; no labored breathing very coarse crackles present bilaterally over the lower half of the lung alexander, mild scattered wheezing Cardiovascular: RRR, no murmur, no edema Gastrointestinal (Abdomen): Inspection/Auscultation: abdomen normal to inspection and + hypoactive bowel sounds; abdomen not distended Percussion/Palpation: + abdomen tender (RUQ, epigastric) and abdomen soft Skin: no rashes, warm and dry slight pallor, no jaundice, no diaphoresis Neurologic: PERRL, EOMI, accommodation nl, no face palsy, no dysarthria Psychiatric: A+Ox3, euthymic affect Lymphatic: no cervical or axillary lymphadenopathy Results & Data Diagnostic Findings CXR 12/30/18: Emphysema with chronic interstitial lung disease and chronic left lung volume loss. 2. Cardiomegaly with pulmonary arterial hypertension. 3. Progressively worsened interstitial opacities of the bilateral lungs is suggestive of pulmonary edema. Atypical infectious or inflammatory pneumonitis is also within the differential. 4. No large pleural effusion
[2019-01-01] MEDS: ACETAMINOPHEN 325 MG TAB PO PRN (12:56)
[2019-01-01] MEDS ORDERED: METOPROLOL TARTRATE 1 MG/ML VIAL IV STA (13:36)
--- NOTE | 2019-01-01 17:03 | Hospitalist Progress Note ---
Date of Service January 01, 2019 Assessment & Plan (1) Hypotension: This is improved, likely with his weight loss and frailty his medications need to be reduced. (2) Dyspnea on exertion: The differential for this seems to be fairly broad, including hypotension causing dyspnea on exertion from meds as above, versus acute on chronic, pulmonary infection, versus dyspnea on exertion related to unstable angina, versus anemia driven -Most likely contributions of all of the above. Treat all underlying factors Given his coronary disease is not operable, stress test would not be of benefit to him. (3) Chest pain: Likely both anxiety and angina, manage his breathing to help improve his anxiety, then may need to be treated individually as a problem if it persists. Angina likely related to a demand ischemia type situation, fortunately fairly mild given that he had no significant EKG changes or troponin elevations. Continue to follow closely, serial EKG with chest pain to ensure he does not show ST segment changes, transfuse and treat the breathing to improve supply demand relationship. 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 This appears to be the root cause of his chronic respiratory failure (6) CLL (chronic lymphocytic leukemia): On no current treatment this time. (7) CAD (coronary artery disease): See above with chest pain, continue to adjust medications for his coronary disease as best as possible. Right now meds as needed to be reduced for his hypotension, but we will gently reinitiate meds as tolerated to take strain off his heart (8) History of [place] (myocardial infarction): As noted above, will need to hold antiplatelets at this time due to GI bleeding (9) Pulmonary artery hypertension: As noted above. Secondary to silicosis and chronic respiratory failure with hypoxia. Consider a PDE, although it may be of limited benefit (10) DVT prophylaxis: Heparin subcu initially utilized, but now with acute blood loss anemia this needs to be held. Given his frailty and weight loss, mechanical prophylaxis would be of dubious benefit in terms of actual VT E prevention, and possible risk as far as falls or skin breakdown. (11) Acute blood loss anemia: Appears to relate to GI bleed. Hold Celebrex, subcu heparin, antiplatelets. Continue Protonix GI input appreciated (12) Severe protein-calorie malnutrition: Likely related to his overall decline Add protein shakes Subjective Chest pain off and on. He notes that it does feel different than his [place], although it has a hard time describing quality that is different, but he does note that the severity is definitely way different and seems to loosely imply the quality is different. He wonders if he is having anxiety. His breathing feels similar to yesterday and that when he is not having any chest pain his breathing at rest is reasonable, but he has breathing with exertion that is very difficult. He has had some clearly melanotic stools, case discussed with GI and input appreciated. Does not seem to have any nausea or vomiting. 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 He is pleasant the first time I see him he does appear tachypneic and anxious, but no other distress. HEENT normocephalic atraumatic mucous membranes are moist poor dentition. Cardio is regular to slightly tachycardic no rubs murmurs or gallops. Lungs are more clear difficult exam due to his anxiety some not sure if it is not much different than yesterday but at least objectively seems to be slightly more clear. Abdomen is soft nondistended nontender no masses or organomegaly. Extremities show no sinus clubbing or edema. On follow-up exam he is sleeping comfortably not tachypneic at all and awakens otherwise unchanged
[2019-01-01] MEDS: PRAVASTATIN SOD 40 MG TAB PO SCH (20:46)
[2019-01-01] MEDS: METOPROLOL TARTRATE 25 MG TAB PO SCH (20:47)
[2019-01-02] MEDS: NITROGLYCERIN SL 0.4 MG/TAB TAB SL PRN ×5 (00:20→02:08)
[2019-01-02] MEDS: LORazepam 0.5 MG TAB PO PRN ×3 (00:45→18:16)
[2019-01-02] MEDS ORDERED: LORazepam 0.25 MG/0.5 ML VIAL IV STA (02:14)
[2019-01-02] MEDS ORDERED: LORazepam 2 MG/4 ML VIAL ONE (02:18)
--- NOTE | 2019-01-02 02:19 | Progress Note ---
Date of Service January 02, 2019 Called by bedside nurse asking if more can be done for patient's chest pain and likely anxiety. She had been giving patient NTG as ordered. First round apparently helped significantly but she is now repeating a round, so paged me. Saw patient at bedside. He is presently hyperventilating but speaking in full sentences. He says he feels very anxious about "about my chest pain, about dying, about leaving my family." He says his chest hurts as it has prior, no particular difference. Does not complain about his breathing or other acute concerns. Vitals: Regular tachycardia 120's on monitor. RR 30's. BP 109/63. SpO2 low 60's on 6L NC (and good waveform). Exam: Appears very anxious, but speaking easily. Tremulous. Regular tachycardia. Crackles in the bases. Congested cough. EKG shows sinus tachy [address] depressions in V4-V6 that appear a bit more pronounced compared to 08Mar at 1324. Plan: - He received the second dose of NTG on my arrival. - Placed patient on oxymask 10L with SpO2 improvement to 70's. - Notified Dr. Swenson who met me at bedside. - Transitioned to high-flow nasal cannula oxygen. Ordered pCXR. - Ordered solumedrol 125 mg IV x1, duoneb x1, mucomyst x1, ativan 0.25 mg IV x 1, and tylenol 1 gram IV x1. George Barajas, PGY2 Overnight call Physical Exam Vital Signs (Past 24 Hours): Last Vital Signs Temp 36.7 C 01/01/19 23:15 Pulse 83 01/01/19 23:15 Resp 16 01/01/19 23:15 BP 110/66 01/02/19 00:35 Pulse Ox 95 01/01/19 23:15
[2019-01-02] MEDS ORDERED: methylPREDNISolone 125 MG/2 ML VIAL IV STA (02:26)
[2019-01-02] MEDS ORDERED: ALBUT/IPRATROP 3MG/0.5MG NEB 3 ML VIAL NEB STA (02:27)
[2019-01-02] MEDS ORDERED: ACETYLCYSTEINE 10% INHAL SOLN **DISPENSED FROM RESP. INH ONE (02:35)
[2019-01-02] MEDS ORDERED: methylPREDNISolone 125 MG in SYRINGE 0 ML IV ONE (02:45)
[2019-01-02] MEDS: ATROPINE SULFATE 1% OP SOLN 5 ML BTL PO PRN ×2 (02:46→05:50)
[2019-01-02 06:08] LABS: BUN Creatinine Ratio 13.4 (10-20); Calcium 8.4 mg/dl (8.5-10.1); Creatinine Clr Calc Pharmacy 71.3 ml/min; Est GFR (African American) 100.4; Est GFR (Non-African American) 86.6; Potassium 4.1 mmol/L (3.5-5.1)
[2019-01-02 06:09] LABS: Hematocrit (blood only) 28.9 % (42-52); Hemoglobin 8.9 g/dL (14.0-18.0); Mean Corpuscular Hgb Conc 30.8 g/dL (32-36); Mean Corpuscular Volume 82.1 fL (80-100); Mean Platelet Volume 10.5 fL (7.4-10.4); Nucleated RBC # (auto) 0.03 K/uL (0-0); Nucleated RBC % (auto) 0.1 %; Platelet Count 348 K/uL (130-400); RDW Coefficient of Variation 17.3 % (11.5-14.5); RDW Standard Deviation 51.7 fL (36.4-46.3); Red Blood Count 3.52 M/uL (4.7-6.1); White Blood Count 32.28 K/uL (4.8-10.8)
[2019-01-02 06:27] LABS: Basophils # (auto) 0.19 K/uL (0-0.2); Basophils % (auto) 0.6 %; Eosinophils # (auto) 0.04 K/uL (0-0.5); Eosinophils % (auto) 0.1 %; Hypochromasia Present; Immature Granulocytes # (auto) 0.15 K/uL (0.00-0.02); Immature Granulocytes % (auto) 0.5 %; Lymphocytes # (auto) 0.91 K/uL (1.2-3.4); Lymphocytes % (auto) 2.8 %; Monocytes # (auto) 0.77 K/uL (0.11-0.59); Monocytes % (auto) 2.4 %; Neutrophils # (auto) 30.22 K/uL (1.4-6.5); Neutrophils % (auto) 93.6 %; Ovalocytes 1+; Polychromasia 1+; Stomatocytes 1+
[2019-01-02] MEDS: BUDESONIDE 0.5 MG/2 ML VIAL (PULMICORT) NEB SCH ×2 (07:11→19:04)
[2019-01-02] MEDS: ALBUT/IPRATROP 3MG/0.5MG NEB 3 ML VIAL INH SCH ×4 (07:12→19:04)
[2019-01-02] MEDS: METOPROLOL TARTRATE 25 MG TAB PO SCH ×2 (07:38→20:05)
[2019-01-02] MEDS: AZITHROMYCIN 250 MG TAB PO SCH (07:38)
[2019-01-02] MEDS: MONTELUKAST SODIUM 10 MG TABLET PO SCH (07:38)
[2019-01-02] MEDS: PARoxetine HCl 10 MG TAB PO SCH (07:38)
[2019-01-02] MEDS: predniSONE 10 MG TABLET PO SCH (07:38)
[2019-01-02] MEDS: FEXOFENADINE HCL 180 MG TAB PO SCH (07:38)
[2019-01-02] MEDS: PANTOprazole 40 MG TAB PO SCH ×2 (07:39→20:05)
--- NOTE | 2019-01-02 08:00 | XRay Report ---
XR chest 1V portable HISTORY: hypoxia COMPARISON: Chest 12/30/2018. FINDINGS: Emphysema and chronic diffuse interstitial thickening. The heart remains enlarged. No pneum othorax. Suspect trace bilateral pleural effusions. Hazy appearance to the lungs persist. IMPRESSION: No change in the interstitial and hazy opacities within the lungs. Electronically signed by: Arie Longoria M.D. 01/02/2019 7:59 AM
[2019-01-02] MEDS ORDERED: OPTIRAY 320 125ml IV PRN (09:57)
--- NOTE | 2019-01-02 10:16 | CT Scan Report ---
CHEST CTA for PULMONARY ARTERIES CT DOSE: 475.09 mGy.cm HISTORY: hypoxia ?PE vs other pathology; chronic fibrosis TECHNIQUE: Multiaxial CT images of the chest were performed following the intravenous administration of contrast to evaluate the pulmonary arteries. Maximal intensity projection images were also obtaine d. A dose lowering technique was utilized adhering to the principles of ALARA. COMPARISON STUDY: Chest CTA 06/25/2018. FINDINGS: Normal caliber thoracic aorta with no evidence for dissection. The heart remains mildly enl arged. No pleural or pericardial effusions. Persistent dilatation of the main pulmonary artery consis tent with pulmonary hypertension. Filling defect within a left lower lobe segmental pulmonary artery on image 163. This could represent a pulmonary embolus or due to the artifact from the poor opacifica tion and respiratory motion. Remaining visualized pulmonary arteries show no additional filling defec ts to suggest pulmonary embolus. There is overall suboptimal evaluation of the segmental and subsegme ntal pulmonary arteries due to the respiratory motion. Retrograde flow of contrast into the hepatic v eins. The gallbladder surgically absent. Low lung volumes are noted. Mild left paratracheal and subca rinal lymphadenopathy, unchanged. No suspicious lytic or blastic osseous lesions. Suboptimal evaluati on the lungs due to the motion. No pneumothorax. Diffuse bronchiectasis with diffuse interstitial thi ckening, left greater than right. Interval development of consolidation throughout the majority of th e right upper lobe and the superior segment of the right lower lobe. Focal left suprahilar density pe rsists. This measures 2 cm. This is best in image 198. There is also patchy groundglass densities wit hin the right middle lobe posteriorly and base of the right lower lobe. IMPRESSION: 1. Filling defect seen within a single left lower lobe segmental pulmonary artery. This is indetermin ate and could be due to pulmonary embolus or secondary to the artifact. The remaining pulmonary arter ies are patent. 2. Interval development of right lung airspace opacities. This likely represents a pneumonia. 3. Chronic interstitial thickening, bronchiectasis, and honeycombing seen within the lungs, left grea ter than right. This is consistent with pulmonary fibrosis. 4. Stable focal left suprahilar density measuring 2 cm. Six-month chest CT follow-up recommended to e nsure stability. 5. Stable mediastinal lymphadenopathy. Electronically signed by: Arie Longoria M.D. 01/02/2019 10:14 AM
[2019-01-02] MEDS ORDERED: PIPERACILL/TAZOBAC CONSULT ACTIVE PRN (10:37)
[2019-01-02] MEDS ORDERED: VANCOMYCIN CONSULT ACTIVE PRN (10:37)
--- NOTE | 2019-01-02 11:11 | Gastroenterology Progress Note ---
Date of Service January 02, 2019 Pt cont without gross GIB, Hgb appropriately increased after blood xfusion, WOB remains increased. Would avoid endoscopy due to tenuous resp status unless he dev overt GIB. Cont empiric protonix. OK to resume ASA if hgb stable x 3 days; would hold Plavix x 5 days. Cont Diet as kurt. Please call with questions. Will sign off. Physical Exam Vital Signs (Past 24 Hours): Last Vital Signs Temp 36.6 C 01/02/19 07:42 Pulse 99 H 01/02/19 07:42 Resp 32 H 01/02/19 07:42 BP 132/82 01/02/19 07:42 Pulse Ox 96 01/02/19 07:42
[2019-01-02] MEDS ORDERED: PIPERACILLIN/TAZOBACTAM 3.375 GM in DEXTROSE 5% 100 ML IV ONE (11:15)
--- NOTE | 2019-01-02 11:22 | Pharmacy Report ---
Pharmacy Abx Dose Short Note - Date of Service January 02, 2019 - Assessment & Plan Assessment * 73 year old M ordered VANCOMYCIN + ZOSYN for treatment of HAP * Patient was admitted on 12/30 * CT read as R airspace opacities, + pulm fibrosis (h/o silicosis), and filling defect in LLL segmental pulm artery * + rise in WBC over last 24 hrs (did receive steroids, but WBC did more than double in last 24 hrs) * pt is tachypneic and tachycardic * BLCXs pending * Will check MRSA nasal swab as well as procalcitonin (will help guide deescalation) * Renal fxn stable, hemodynamically stable (SBPs 100-130's) Plan Vancomycin * Loading dose: 1500mg (~23mg/kg) x 1 * Maint dose: 1000mg (~15mg/kg) IV Q 12 hrs * Goal trough level for pulm infxn : 15 to 20 mcg/mL * Will check trough level w/ 4th maint dose if therapy to continue * P'kinetic estimates: Vd 0.7L/kg, half-life ~11 hrs Zosyn * eCrCl > 20 and BMI < 35, 3.375gm IV load over 30 min, then 3.375gm ext- infusion IV Q 8 hrs Pharmacy will continue to follow and will adjust dose/frequency as necessary. Thank you.
[2019-01-02] MEDS: ACETAMINOPHEN 325 MG TAB PO PRN ×2 (11:28→18:16)
[2019-01-02] MEDS ORDERED: VANCOMYCIN HCL 1,500 MG in SODIUM CHLORIDE 0.9% 500 ML IV ONE (11:45)
--- NOTE | 2019-01-02 12:03 | Ultrasound Report ---
BILATERAL LOWER EXTREMITY VENOUS DOPPLER HISTORY: questionable PE on CT, eval for DVT COMPARISON STUDY: None. FINDINGS: There is normal compressibility, flow, and augmentation within the bilateral lower extremit y deep venous systems. IMPRESSION: No DVT within the right or left lower extremity. Electronically signed by: Arie Longoria M.D. 01/02/2019 12:02 PM
[2019-01-02] MEDS: PIPERACILLIN/TAZOBACTAM 3.375 GM in DEXTROSE 5% 100 ML IV SCH ×2 (15:36→23:38)
--- NOTE | 2019-01-02 17:18 | Hospitalist Progress Note ---
Date of Service January 02, 2019 Assessment & Plan (1) Healthcare-associated pneumonia: Developed overnight. -Stat MRSA nares -Given his frailty and sepsis, Zosyn and Vanco pending MRSA nares results, can stop Vanco for MRSA nares is negative. -Surprisingly stable although technically septic given white count and respiratory rate and occasionally pulse, but no downstream organ failure or hypoperfusion otherwise. Continue supportive care Pulmonary toilet My biggest concern would be if he starts to run into issues with mucus plugging, but he already has nebulizers and steroids ordered, continue these, initiate flutter valve CT scan also showed an incidental question of solitary pulmonary embolus versus artifact. Given his worsening pneumonia is a very plausible explanation for his new hypoxia, and PE clinical probability low to moderate (at worst - depending on heart rate -- calculates low prob w HR < 100, moderate w HR > 100, but with heart rates variable his tachycardia is also much more likely from respiratory distress as an untreated PE would almost certainly lead to a constant degree of tachycardia) and with LE venous dopplers being negative - seems almost certainly that CT findings in regards to PE were truly artifact -- will continue to watch closely (but also, w GI bleeding requiring transfusion and no LE DVT, anticoagulation and IVC filter would both be of possible harm and IVC filter of dubious benefit) (2) Hypotension: This is improved, likely with his weight loss and frailty his medications need to be reduced. Improved, surprisingly stable even with his sepsis. (3) Dyspnea on exertion: The differential for this seems to be fairly broad and likely his dyspnea is related to pulmonary fibrosis, angina, currently is pneumonia, likely some effects from hypotension earlier in the week, and effects from anemia. -Most likely contributions of all of the above. Treat all underlying factors Given his coronary disease is not operable, stress test would not be of benefit to him. (4) Chest pain: Likely both anxiety and angina, manage his breathing to help improve his anxiety, then may need to be treated individually as a problem if it persists. Angina likely related to a demand ischemia type situation, fortunately fairly mild given that he had no significant EKG changes or troponin elevations. 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 This appears to be the root cause of his chronic respiratory failure (7) CLL (chronic lymphocytic leukemia): On no current treatment this time. (8) CAD (coronary artery disease): See above with chest pain, continue to adjust medications for his coronary disease as best as possible. Right now meds as needed to be reduced for his hypotension, continue to follow and adjust as possible. Discussed with cardiology, safe to have antiplatelets on hold right now. (9) History of [place] (myocardial infarction): As noted above, will need to hold antiplatelets at this time due to GI bleeding (10) Pulmonary artery hypertension: As noted above. Secondary to silicosis and chronic respiratory failure with hypoxia. Consider a PDE, although it may be of limited benefit (11) DVT prophylaxis: Heparin subcu initially utilized, but now with acute blood loss anemia this needs to be held. Given his frailty and weight loss, mechanical prophyl axis would be of dubious benefit in terms of actual VT E prevention, and possible risk as far as falls or skin breakdown. See above otherwise in discussion for possible but unlikely PE (12) Acute blood loss anemia: Appears to relate to GI bleed. Hold Celebrex, subcu heparin, antiplatelets. Continue Protonix GI input appreciated (13) Severe protein-calorie malnutrition: Likely related to his overall decline TID protein shakes Subjective Had a rough night, felt worse and more short of breath, actually resting comfortably now. Had a decent amount of chest pain through the night, although none now. Required more oxygen, but breathing better on it now. Later revisited and is sleeping comfortably. Updated multiple family members at the bedside through the day, trying to call his to update but unfortunately according to the daughter she dropped her cell phone in the toilet, and she had his cell phone but it went to voicemail Review of Systems All systems reviewed & are unremarkable except as noted in HPI & below Physical Exam Vital Signs (Past 24 Hours): Last Vital Signs Temp 36.3 C L 01/02/19 15:17 Pulse 84 01/02/19 16:00 Resp 34 H 01/02/19 15:23 BP 111/70 01/02/19 15:17 Pulse Ox 90 01/02/19 15:23 Physical Exam: Very fatigued appearing but surprisingly not in much distress. HEENT normocephalic atraumatic mucous membranes are slightly dry. Cardio is regular surprisingly not tachycardic. Lungs show right-sided rales far more than the left no wheezing good air entry overall. Abdomen is soft nondistended nontender no masses or organomegaly extremities show no cyanosis clubbing or edema, no calf tenderness. Neuro shows no focal deficits
[2019-01-02] MEDS: predniSONE 20 MG TAB PO SCH (18:15)
[2019-01-02] MEDS: PRAVASTATIN SOD 40 MG TAB PO SCH (20:06)
[2019-01-03] MEDS ORDERED: VANCOMYCIN HCL 1,000 MG in SODIUM CHLORIDE 0.9% 250 ML IV SCH
[2019-01-03 06:36] LABS: Mean Corpuscular Hgb Conc 30.5 g/dL (32-36); Mean Platelet Volume 10.1 fL (7.4-10.4); Platelet Count 336 K/uL (130-400)
[2019-01-03] MEDS: BUDESONIDE 0.5 MG/2 ML VIAL (PULMICORT) NEB SCH ×2 (07:00→19:16)
[2019-01-03 07:01] LABS: BUN Creatinine Ratio 12.5 (10-20); Calcium 8.2 mg/dl (8.5-10.1); Creatinine Clr Calc Pharmacy 61.5 ml/min; Est GFR (African American) 86.8; Est GFR (Non-African American) 74.9; Hematocrit (blood only) 26.6 % (42-52); Hemoglobin 8.1 g/dL (14.0-18.0); Mean Corpuscular Volume 81.1 fL (80-100); Potassium 3.9 mmol/L (3.5-5.1); RDW Coefficient of Variation 17.6 % (11.5-14.5); RDW Standard Deviation 51.9 fL (36.4-46.3); Red Blood Count 3.28 M/uL (4.7-6.1); White Blood Count 29.13 K/uL (4.8-10.8)
[2019-01-03 07:03] LABS: ALC (manual) 0.87 K/uL (1.2-3.4); Basophils # (manual) 0.29 K/uL (0-0.2); Lymphocytes # (manual) 0.87 K/uL (1.2-3.4); Ovalocytes 1+
[2019-01-03] MEDS: ALBUT/IPRATROP 3MG/0.5MG NEB 3 ML VIAL INH SCH ×4 (07:23→19:18)
[2019-01-03] MEDS: PIPERACILLIN/TAZOBACTAM 3.375 GM in DEXTROSE 5% 100 ML IV SCH ×3 (08:40→23:21)
[2019-01-03] MEDS: PARoxetine HCl 10 MG TAB PO SCH (08:41)
[2019-01-03] MEDS: AZITHROMYCIN 250 MG TAB PO SCH (08:41)
[2019-01-03] MEDS: predniSONE 20 MG TAB PO SCH (08:41)
[2019-01-03] MEDS: MONTELUKAST SODIUM 10 MG TABLET PO SCH (08:41)
[2019-01-03] MEDS: FEXOFENADINE HCL 180 MG TAB PO SCH (08:42)
[2019-01-03] MEDS: METOPROLOL TARTRATE 25 MG TAB PO SCH ×2 (08:52→20:44)
[2019-01-03] MEDS: PANTOprazole 40 MG TAB PO SCH ×2 (08:52→20:46)
[2019-01-03] MEDS: ACETAMINOPHEN 325 MG TAB PO PRN ×3 (08:57→20:06)
[2019-01-03] MEDS: LORazepam 0.5 MG TAB PO PRN ×3 (08:57→23:19)
--- NOTE | 2019-01-03 16:30 | Hospitalist Progress Note ---
Date of Service January 03, 2019 Assessment & Plan (1) Healthcare-associated pneumonia: Developed overnight 01/02. -Stat MRSA nares was negative -Given his frailty and sepsis, Zosyn and Vanco initially started, but with MRSA nares being negative, continuing just with Zosyn -Surprisingly stable although technically septic given white count and respiratory rate and occasionally pulse, but no downstream organ failure or hypoperfusion otherwise. Seems to be improving Continue supportive care Pulmonary toilet My biggest concern would be if he starts to run into issues with mucus plugging, but he already has nebulizers and steroids ordered, continue these, as well as flutter valve and incentive spirometry CT scan also showed an incidental question of solitary pulmonary embolus versus artifact. Given his worsening pneumonia is a very plausible explanation for his new hypoxia, and PE clinical probability low to moderate (at worst - depending on heart rate -- calculates low prob w HR < 100, moderate w HR > 100, but with heart rates variable his tachycardia is also much more likely from respiratory distress as an untreated PE would almost certainly lead to a constant degree of tachycardia) and with LE venous dopplers being negative - seems almost certainly that CT findings in regards to PE were truly artifact -- will continue to watch closely (but also, w GI bleeding requiring transfusion and no LE DVT, anticoagulation and IVC filter would both be of possible harm and IVC filter of dubious benefit). He has shown no deterioration in this regard, corroborating that it most likely was a false positive read (2) Hypotension: This is improved, likely with his weight loss and frailty his medications need to be reduced. Improved, surprisingly stable even with his sepsis. Continue cardiac meds at reduced dosing (3) Dyspnea on exertion: The differential for this seems to be fairly broad and likely his dyspnea is related to pulmonary fibrosis, angina, currently is pneumonia, likely some effects from hypotension earlier in the week, and effects from anemia. -Most likely contributions of all of the above. Treat all underlying factors Given his coronary disease is not operable, stress test would not be of benefit to him. (4) Chest pain: Likely both anxiety and angina, manage his breathing to help improve his anxiety, then may need to be treated individually as a problem if it persists. Angina likely related to a demand ischemia type situation, fortunately fairly mild given that he had no significant EKG changes or troponin elevations. C ontinue to follow closely, treat angina with nitro, treat anxiety with reassurance/as needed benzodiazepines. 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 This appears to be the root cause of his chronic respiratory failure (7) CLL (chronic lymphocytic leukemia): On no current treatment this time. (8) CAD (coronary artery disease): See above with chest pain, continue to adjust medications for his coronary disease as best as possible. Antiplatelets on hold due to GI bleeding, cardiac meds reduced due to his hypotension earlier in his hospital stay, but his angina seems to be less and less. (9) History of [place] (myocardial infarction): As noted above, holding antiplatelets at this time due to GI bleeding (10) Pulmonary artery hypertension: As noted above. Secondary to silicosis and chronic respiratory failure with hypoxia. Consider a PDE, although it may be of limited benefit (11) DVT prophylaxis: Heparin subcu initially utilized, but now with acute blood loss anemia this needs to be held. Given his frailty and weight loss, mechanical prophylaxis would be of dubious benefit in terms of actual VT E prevention, and possible risk as far as falls or skin breakdown. See above otherwise in discussion for possible but unlikely PE (12) Acute blood loss anemia: Appears to relate to GI bleed. Hold Celebrex, subcu heparin, antiplatelets. Continue Protonix GI input appreciated Hemoglobin has been stable (13) Severe protein-calorie malnutrition: Likely related to his overall decline TID protein shakes (14) Discharge planning issues: Continue current care for now, hopefully in the next day or 2 we can start to move towards MedSurg. PT/OT eval and treat, discussed with patient and family yesterday and today that some sort of rehab setting is almost certainly going to be required after discharge. Subjective Feeling better, just tired. He is not that short of breath surprisingly. He has had panic attacks off and on, but not anything else, no angina. He seems to be recognizing the panic attacks better and reassurance or Ativan helps. and daughter present at the bedside, all questions answered to the best my ability. Review of Systems All systems reviewed & are unremarkable except as noted in HPI & below Physical Exam Vital Signs (Past 24 Hours): Last Vital Signs Temp 36.4 C L 01/03/19 15:17 Pulse 81 01/03/19 15:20 Resp 24 01/03/19 15:20 BP 103/61 01/03/19 15:17 Pulse Ox 98 01/03/19 15:20 Physical Exam: General he is awake and alert, fatigued but no distress. He is oriented. HEENT normocephalic atraumatic mucous membranes are moist. Poor dentition. Breathing is unlabored on mask oxygen, his lungs show faint rales on the right compared to the left but surprisingly good air entry overall, and more clear than before. Abdomen is soft nondistended nontender, extremities show no sinus clubbing or edema. Neuro shows no focal deficits.
[2019-01-03] MEDS: PRAVASTATIN SOD 40 MG TAB PO SCH (20:46)
[2019-01-04 05:42] LABS: Hemoglobin 7.6 g/dL (14.0-18.0); Mean Corpuscular Hgb Conc 30.4 g/dL (32-36); Mean Corpuscular Volume 82.2 fL (80-100); Mean Platelet Volume 9.9 fL (7.4-10.4); Nucleated RBC # (auto) 0.02 K/uL (0-0); Nucleated RBC % (auto) 0.1 %; Platelet Count 304 K/uL (130-400); RDW Coefficient of Variation 17.9 % (11.5-14.5); RDW Standard Deviation 54.1 fL (36.4-46.3); Red Blood Count 3.04 M/uL (4.7-6.1)
[2019-01-04 06:01] LABS: Basophils # (auto) 0.03 K/uL (0-0.2); Basophils % (auto) 0.1 %; Eosinophils # (auto) 0.01 K/uL (0-0.5); Hypochromasia Present; Immature Granulocytes # (auto) 0.15 K/uL (0.00-0.02); Immature Granulocytes % (auto) 0.6 %; Lymphocytes # (auto) 1.88 K/uL (1.2-3.4); Monocytes # (auto) 2.76 K/uL (0.11-0.59); Monocytes % (auto) 10.3 %; Neutrophils # (auto) 21.87 K/uL (1.4-6.5); Ovalocytes 1+
[2019-01-04 06:11] LABS: BUN Creatinine Ratio 12.3 (10-20); Creatinine Clr Calc Pharmacy 69.7 ml/min; Est GFR (African American) 99.5; Est GFR (Non-African American) 85.8; Potassium 3.7 mmol/L (3.5-5.1)
[2019-01-04] MEDS: ALBUT/IPRATROP 3MG/0.5MG NEB 3 ML VIAL INH SCH ×4 (07:15→19:34)
[2019-01-04] MEDS: BUDESONIDE 0.5 MG/2 ML VIAL (PULMICORT) NEB SCH ×2 (07:15→19:34)
[2019-01-04] MEDS: PIPERACILLIN/TAZOBACTAM 3.375 GM in DEXTROSE 5% 100 ML IV SCH ×3 (07:26→23:30)
[2019-01-04] MEDS: LORazepam 0.5 MG TAB PO PRN ×3 (08:19→20:23)
[2019-01-04] MEDS: AZITHROMYCIN 250 MG TAB PO SCH (08:20)
[2019-01-04] MEDS: MONTELUKAST SODIUM 10 MG TABLET PO SCH (08:20)
[2019-01-04] MEDS: PANTOprazole 40 MG TAB PO SCH ×2 (08:20→20:20)
[2019-01-04] MEDS: FEXOFENADINE HCL 180 MG TAB PO SCH (08:21)
--- NOTE | 2019-01-04 08:22 | XRay Report ---
XR chest 1V portable CLINICAL HISTORY: Acute respiratory distress COMPARISON STUDY: 01/02/2019 FINDINGS: The cardiac and mediastinal contours remain stable. There are diffuse bilateral interstitia l opacities, suggestive of underlying interstitial pulmonary fibrosis. The findings remain similar. T here are no large pleural effusions. There is mild gaseous distention of visualized bowel.[ IMPRESSION: Radiographic evidence of interstitial pulmonary fibrosis, similar to the preceding study. Electronically signed by: Wyatt Webber M.D. 01/04/2019 8:21 AM
[2019-01-04] MEDS: predniSONE 20 MG TAB PO SCH (08:23)
[2019-01-04] MEDS: METOPROLOL TARTRATE 25 MG TAB PO SCH ×2 (08:24→20:18)
[2019-01-04 08:29] LABS: HCO3 ABG 31 mmol/L (19-24); Oxygen Saturation ABG 87.6 % (90-95); PCO2 ABG 44 mmHg (35-46); PO2 ABG 73 mm/Hg (80-95); pH ABG 7.47 (7.35-7.45)
[2019-01-04 08:30] LABS: Allen Test POS (Pos)
[2019-01-04] MEDS: PARoxetine HCl 10 MG TAB PO SCH (09:28)
[2019-01-04] MEDS: NITROGLYCERIN SL 0.4 MG/TAB TAB SL PRN (11:03)
[2019-01-04] MEDS ORDERED: SODIUM CHLORIDE 0.9% 250 ML IV PRN ×2 (11:14→12:12)
[2019-01-04] MEDS ORDERED: LORazepam 0.5 MG TAB PO STA (11:21)
[2019-01-04] MEDS ORDERED: FUROSEMIDE 20 MG in SYRINGE 0 ML IV ONE (11:30)
--- NOTE | 2019-01-04 11:37 | Hospitalist Progress Note ---
Date of Service January 04, 2019 Assessment & Plan (1) Healthcare-associated pneumonia: (2) Hypotension: (3) Dyspnea on exertion: (4) Chest pain: (5) Acute on chronic respiratory failure with hypoxia: (6) Silicosis: (7) CLL (chronic lymphocytic leukemia): (8) CAD (coronary artery disease): (9) History of [place] (myocardial infarction): (10) Pulmonary artery hypertension: (11) DVT prophylaxis: (12) Acute blood loss anemia: (13) Severe protein-calorie malnutrition: (14) Discharge planning issues: (15) Anxiety: 77-year-old male December 30, 2018 because of chest pain with history of CAD Acute respiratory distress with increased respiratory rate, like because of anxiety, was tried nonrebreather, and high flow, later is on 10 L oxygen, respiratory rate up to 93 ABG shows pH more than 4, which is not really alkalosis, likely from Chest x-ray was done, no obvious pulmonary congestion however when dilated, which is supported anxiety episodes, give additional dose of Ativan, teach breathing technique, anxiety episodes, Give additional dose of Ativan Chest pain with history of CAD, which helped with nitro, continue surveillance system monitor, cont manage his breathing to help improve his anxiety, Angina likely related to a demand ischemia type situation, fortunately fairly mild given that he had no significant EKG changes or troponin elevations. Healthcare-associated pneumonia: Developed overnight 01/02. 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 Given his worsening pneumonia is a very plausible explanation for his new hypoxia, and PE clinical probability low to moderate Hypotension: Persistent, likely with his weight loss and frailty his medications need to be reduced. CLL: On no current treatment this time. Possible acute blood loss anemia, possible related to GI,Hold Celebrex, subcu heparin, antiplatelets. Continue Protonix GI input appreciated Transfuse 1 unit now, Severe protein-calorie malnutrition: Likely related to his overall decline Possible need rehab at discharge Patient is do not resuscitation Subjective This morning patient was having an elevated respiratory rate and heart rate, I check ABG and x-ray, When I seen patient, nursing staff reported he got Ativan 0.5 mg 2-hour ago, however patient looks anxious, Labored breathing respiratory rate up to 30s heart rate up to 120, however awake alert orientated conversational He just reported chest pain he got 1 dose of nitro which helped Review of Systems Constitutional: Positive weakness, or fatigue and anxious Respiratory: Obvious labored breathing, however no wheezing, or dyspnea on exertion Cardiac: No claudication, No palpitations, Abdomen: No pain, No nausea, No vomiting, No diarrhea, Musculoskeletal: No joint pain, No muscle pain, No swelling, : No dysuria, No urinary frequency, Neurologic: No paralysis, No weakness, No numbness/tingling, Psychiatric: Obvious anxious, no depression symptoms, No anhedonism, Heme: No abnormal bleeding/bruising, No clotting problems, No swollen lymph nodes, No night sweats Skin: No rash, No itch, No new/changing skin lesions, Physical Exam Vital Signs (Past 24 Hours): Last Vital Signs Temp 36.2 C L 01/04/19 11:09 Pulse 126 H 01/04/19 11:09 Resp 36 H 01/04/19 11:09 BP 90/64 L 01/04/19 11:09 Pulse Ox 83 L 01/04/19 11:09 Physical Exam: General Appearance: Thin, frail, anxious, labored breathing A to 30s, WD/WN, some distress, Eyes: normal inspection, PERRL, EOMI, sclerae normal ENT: normal ENT inspection, hearing grossly normal, pharynx normal Neck: supple, no adenopathy, thyroid normal, no JVD, no carotid bruits, trachea midline Respiratory/Chest: Decreased breath sounds, no respiratory distress, n no rales, wheezing Cardiovascular: regular rate, tachycardia, rhythm, no JVD, no murmur Abdomen: normal bowel sounds, non tender, soft, no organomegaly, Extremities: normal range of motion, non-tender, normal inspection, no pedal edema, no calf tenderness, normal capillary refill, pelvis stable, 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76 H Eos # (Auto) 0.01 Baso # (Auto) 0.03 Absolute Nucleated RBC 0.02 H Nucleated RBC % (auto) 0.1 Hypersegmented Neuts 1+ Hypochromasia Present Ovalocytes 1+ ABG pH ABG pCO2 ABG pO2 ABG HCO3 ABG O2 Saturation ABG Base Excess Reilly Test Barometric Pressure Oxygen Given Sodium 142 Potassium 3.7 Chloride 105 Carbon Dioxide 33 H Anion Gap 4.0 BUN 11 Creatinine 0.88 Est Cr Clr Drug Dosing 69.7 Est GFR ( Amer) 99.5 Est GFR (Non-Af Amer) 85.8 BUN/Creatinine Ratio 12.3 Glucose 79 Calcium 8.0 L Procalcitonin Crossmatch See Detail 01/04/19 01/04/19 08:19 10:34 WBC RBC Hgb Hct MCV MCH MCHC RDW Std Deviation RDW Coeff of Pramod Plt Count MPV Immature Gran % (Auto) Neut % (Auto) Lymph % (Auto) [place] % (Auto) Eos % (Auto) Baso % (Auto) Immature Gran # (Auto) Neut # (Auto) Lymph # (Auto) [place] # (Auto) Eos # (Auto) Baso # (Auto) Absolute Nucleated RBC Nucleated RBC % (auto) Hypersegmented Neuts Hypochromasia Ovalocytes ABG pH 7.47 H ABG pCO2 44 ABG pO2 73 L ABG HCO3 31 H ABG O2 Saturation 87.6 L ABG Base Excess 7.0 H Reilly Test POS Barometric Pressure 734.1 Oxygen Given 7L Sodium Potassium Chloride Carbon Dioxide Anion Gap BUN Creatinine Est Cr Clr Drug Dosing Est GFR ( Amer) Est GFR (Non-Af Amer) BUN/Creatinine Ratio Glucose Calcium Procalcitonin 0.07 Crossmatch Microbiology 01/02/19 08:34 Blood Blood Culture - Preliminary No growth to date. 01/02/19 08:21 Blood Blood Culture - Preliminary No growth to date.
[2019-01-04] MEDS: PRAVASTATIN SOD 40 MG TAB PO SCH (20:20)
[2019-01-05] MEDS: ALBUT/IPRATROP 3MG/0.5MG NEB 3 ML VIAL INH SCH ×4 (06:47→19:28)
[2019-01-05] MEDS: BUDESONIDE 0.5 MG/2 ML VIAL (PULMICORT) NEB SCH ×2 (06:48→19:28)
[2019-01-05 07:07] LABS: Creatinine Clr Calc Pharmacy 68.6 ml/min; Est GFR (African American) 99.5; Est GFR (Non-African American) 85.8; Phosphorus 4.1 mg/dl (2.5-4.9)
[2019-01-05] MEDS: PANTOprazole 40 MG TAB PO SCH ×2 (07:32→20:32)
[2019-01-05] MEDS: predniSONE 20 MG TAB PO SCH (07:32)
[2019-01-05] MEDS: METOPROLOL TARTRATE 25 MG TAB PO SCH ×2 (07:32→20:32)
[2019-01-05] MEDS: AZITHROMYCIN 250 MG TAB PO SCH (07:33)
[2019-01-05] MEDS: PARoxetine HCl 10 MG TAB PO SCH (07:33)
[2019-01-05] MEDS: MONTELUKAST SODIUM 10 MG TABLET PO SCH (07:33)
[2019-01-05] MEDS: FEXOFENADINE HCL 180 MG TAB PO SCH (07:33)
[2019-01-05] MEDS: PIPERACILLIN/TAZOBACTAM 3.375 GM in DEXTROSE 5% 100 ML IV SCH ×3 (07:36→23:44)
[2019-01-05] MEDS: LORazepam 0.5 MG TAB PO PRN ×2 (07:50→15:44)
[2019-01-05 08:24] LABS: Hemoglobin 9.8 g/dL (14.0-18.0); Mean Platelet Volume 10.2 fL (7.4-10.4); Nucleated RBC # (auto) 0.02 K/uL (0-0); Nucleated RBC % (auto) 0.1 %; Platelet Count 315 K/uL (130-400); RDW Coefficient of Variation 18.2 % (11.5-14.5); Red Blood Count 3.81 M/uL (4.7-6.1); White Blood Count 21.83 K/uL (4.8-10.8)
[2019-01-05 08:26] LABS: Mean Corpuscular Hgb Conc 30.6 g/dL (32-36)
[2019-01-05 08:41] LABS: BUN Creatinine Ratio 12.4 (10-20); Calcium 8.6 mg/dl (8.5-10.1); Creatinine Clr Calc Pharmacy 66.3 ml/min; Est GFR (African American) 97.2; Est GFR (Non-African American) 83.9; Magnesium 1.9 mg/dl (1.8-2.4); Potassium 3.6 mmol/L (3.5-5.1)
[2019-01-05 08:42] LABS: Phosphorus 3.6 mg/dl (2.5-4.9)
[2019-01-05 09:10] LABS: Anisocytosis Present; Basophils # (auto) 0.02 K/uL (0-0.2); Basophils % (auto) 0.1 %; Eosinophils # (auto) 0.01 K/uL (0-0.5); Immature Granulocytes # (auto) 0.11 K/uL (0.00-0.02); Immature Granulocytes % (auto) 0.5 %; Lymphocytes # (auto) 1.52 K/uL (1.2-3.4); Monocytes % (auto) 12.8 %; Neutrophils # (auto) 17.37 K/uL (1.4-6.5); Neutrophils % (auto) 79.6 %; Poikilocytosis Present
[2019-01-05] MEDS ORDERED: FUROSEMIDE 20 MG in SYRINGE 0 ML IV ONE (12:00)
--- NOTE | 2019-01-05 14:37 | Hospitalist Progress Note ---
Date of Service January 05, 2019 Assessment & Plan (1) Healthcare-associated pneumonia: (2) Hypotension: (3) Dyspnea on exertion: (4) Chest pain: (5) Acute on chronic respiratory failure with hypoxia: (6) Silicosis: (7) CLL (chronic lymphocytic leukemia): (8) CAD (coronary artery disease): (9) History of [place] (myocardial infarction): (10) Pulmonary artery hypertension: (11) DVT prophylaxis: (12) Acute blood loss anemia: (13) Severe protein-calorie malnutrition: (14) Discharge planning issues: (15) Anxiety: 77-year-old male December 30, 2018 because of chest pain with history of CAD, normal chest pain, oxygen level is improving Acute respiratory distress with increased respiratory rate yesterday, like because of anxiety, resolved was tried nonrebreather, and high flow, later is on 10 L oxygen, respiratory rate up to 26, it is significant better ABG shows pH more than 4, which is not really alkalosis, likely from Chest x-ray was done yesterday, no obvious pulmonary congestion Continue Ativan for anxiety if needed anxiety episodes, will follow up, Ativan as needed Chest pain with history of CAD, which helped with nitro, continue monitoring coordinator, cont manage his breathing to help improve his anxiety, Angina likely related to a demand ischemia type situation, no significant EKG changes or troponin elevations. Anemia, hemoglobin improved after transfusion Healthcare-associated pneumonia: Developed overnight 01/02. 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 Given his worsening pneumonia is a very plausible explanation for his new hypoxia, and PE clinical probability low to moderate Possible fluid overload with fine crackles bilateral lung, was getting Lasix yesterday 20 mg, will give another 20 mg Lasix today Hypotension: Resolved CLL: On no current treatment this time. Possible acute blood loss anemia, possible related to GI,Hold Celebrex, subcu heparin, antiplatelets. Continue Protonix GI input appreciated Severe protein-calorie malnutrition: Likely related to his overall decline Possible need rehab at discharge Patient is do not resuscitation Increase activity PTOT, older adult social work specialist for discharge plan DNR Subjective No more anxious, feeling good, Oxymask was tapered down to nasal cannula oxygen at 2 L/min Denies chest pain Tolerate diet Review of Systems Constitutional: Positive weakness, or fatigue and anxious, but is better than yesterday Respiratory: no labored breathing, however no wheezing, or dyspnea on exertion Cardiac: No palpitations, Abdomen: No pain, No nausea, No vomiting, No diarrhea, Musculoskeletal: No joint pain, No muscle pain, No swelling, : No dysuria, No urinary frequency, Neurologic: No paralysis, No weakness, No numbness/tingling, Psychiatric: Obvious anxious, no depression symptoms, No anhedonism, Heme: No abnormal bleeding/bruising, No clotting problems, No swollen lymph nodes, No night sweats Skin: No rash, No itch, No new/changing skin lesions, Physical Exam Vital Signs (Past 24 Hours): Last Vital Signs Temp 36.3 C L 01/05/19 11:40 Pulse 75 01/05/19 11:40 Resp 32 H 01/05/19 11:40 BP 104/65 01/05/19 11:40 Pulse Ox 94 01/05/19 11:40 Physical Exam: General Appearance: Thin, frail, WD/WN, no distress, Eyes: normal inspection, PERRL, EOMI, sclerae normal ENT: normal ENT inspection, hearing grossly normal, pharynx normal Neck: supple, no adenopathy, thyroid normal, no JVD, no carotid bruits, trachea midline Respiratory/Chest: Decreased breath sounds, no respiratory distress, n no rales, wheezing Cardiovascular: regular rate, tachycardia, rhythm, no JVD, no murmur Abdomen: normal bowel sounds, non tender, soft, no organomegaly, Extremities: normal range of motion, non-tender, normal inspection, no pedal edema, no calf tenderness, normal capillary refill, pelvis stable, 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, no motor/sensory deficits, alert, normal mood/affect, oriented x 3 Skin: normal color, warm/dry, no rash Lymphatic: no adenopathy Results & Data Laboratory Results Laboratory Results - last 24 hr 01/04/19 01/05/19 01/05/19 12:40 05:45 08:07 WBC 21.83 H RBC 3.81 L Hgb 9.8 L Hct 32.0 L MCV 84.0 MCH 25.7 MCHC 30.6 L RDW Std Deviation 56.0 H RDW Coeff of Pramod 18.2 H Plt Count 315 MPV 10.2 Immature Gran % (Auto) 0.5 Neut % (Auto) 79.6 Lymph % (Auto) 7.0 [place] % (Auto) 12.8 Eos % (Auto) 0.0 Baso % (Auto) 0.1 Immature Gran # (Auto) 0.11 H Neut # (Auto) 17.37 H Lymph # (Auto) 1.52 [place] # (Auto) 2.80 H Eos # (Auto) 0.01 Baso # (Auto) 0.02 Absolute Nucleated RBC 0.02 H Nucleated RBC % (auto) 0.1 Poikilocytosis Present Anisocytosis Present Sodium Potassium Chloride Carbon Dioxide Anion Gap BUN Creatinine 0.88 Est Cr Clr Drug Dosing 68.6 Est GFR ( Amer) 99.5 Est GFR (Non-Af Amer) 85.8 BUN/Creatinine Ratio Glucose Calcium Phosphorus 4.1 Magnesium 2.0 Crossmatch See Detail 01/05/19 08:07 WBC RBC Hgb Hct MCV MCH MCHC RDW Std Deviation RDW Coeff of Pramod Plt Count MPV Immature Gran % (Auto) Neut % (Auto) Lymph % (Auto) [place] % (Auto) Eos % (Auto) Baso % (Auto) Immature Gran # (Auto) Neut # (Auto) Lymph # (Auto) [place] # (Auto) Eos # (Auto) Baso # (Auto) Absolute Nucleated RBC Nucleated RBC % (auto) Poikilocytosis Anisocytosis Sodium 140 Potassium 3.6 Chloride 101 Carbon Dioxide 34 H Anion Gap 6.0 BUN 11 Creatinine 0.91 Est Cr Clr Drug Dosing 66.3 Est GFR ( Amer) 97.2 Est GFR (Non-Af Amer) 83.9 BUN/Creatinine Ratio 12.4 Glucose 110 H Calcium 8.6 Phosphorus 3.6 Magnesium 1.9 Crossmatch
[2019-01-05] MEDS: PRAVASTATIN SOD 40 MG TAB PO SCH (20:32)
[2019-01-06 06:08] LABS: Hematocrit (blood only) 32.4 % (42-52); Mean Corpuscular Hgb Conc 30.9 g/dL (32-36); Mean Corpuscular Volume 83.5 fL (80-100); Mean Platelet Volume 10.2 fL (7.4-10.4); Nucleated RBC # (auto) 0.03 K/uL (0-0); Nucleated RBC % (auto) 0.2 %; Platelet Count 325 K/uL (130-400); RDW Coefficient of Variation 18.3 % (11.5-14.5); Red Blood Count 3.88 M/uL (4.7-6.1)
[2019-01-06 06:41] LABS: BUN Creatinine Ratio 9.4 (10-20); Calcium 8.6 mg/dl (8.5-10.1); Creatinine Clr Calc Pharmacy 56.1 ml/min; Est GFR (African American) 79.1; Est GFR (Non-African American) 68.2; Potassium 3.6 mmol/L (3.5-5.1)
[2019-01-06] MEDS: ALBUT/IPRATROP 3MG/0.5MG NEB 3 ML VIAL INH SCH ×4 (07:01→19:31)
[2019-01-06] MEDS: BUDESONIDE 0.5 MG/2 ML VIAL (PULMICORT) NEB SCH ×2 (07:01→19:31)
[2019-01-06] MEDS: PIPERACILLIN/TAZOBACTAM 3.375 GM in DEXTROSE 5% 100 ML IV SCH ×3 (07:59→23:30)
[2019-01-06] MEDS: FEXOFENADINE HCL 180 MG TAB PO SCH (08:29)
[2019-01-06] MEDS: METOPROLOL TARTRATE 25 MG TAB PO SCH ×2 (08:29→20:18)
[2019-01-06] MEDS: PARoxetine HCl 10 MG TAB PO SCH (08:30)
[2019-01-06] MEDS: PANTOprazole 40 MG TAB PO SCH ×2 (08:31→20:18)
[2019-01-06] MEDS: AZITHROMYCIN 250 MG TAB PO SCH (08:31)
[2019-01-06] MEDS: MONTELUKAST SODIUM 10 MG TABLET PO SCH (08:31)
[2019-01-06] MEDS ORDERED: predniSONE 20 MG TAB PO SCH (09:00)
--- NOTE | 2019-01-06 15:21 | Hospitalist Progress Note ---
Date of Service January 06, 2019 Assessment & Plan (1) Healthcare-associated pneumonia: (2) Hypotension: (3) Dyspnea on exertion: (4) Chest pain: (5) Acute on chronic respiratory failure with hypoxia: (6) Silicosis: (7) CLL (chronic lymphocytic leukemia): (8) CAD (coronary artery disease): (9) History of [place] (myocardial infarction): (10) Pulmonary artery hypertension: (11) DVT prophylaxis: (12) Acute blood loss anemia: (13) Severe protein-calorie malnutrition: (14) Discharge planning issues: (15) Anxiety: 77-year-old male December 30, 2018 because of chest pain with history of CAD, no more chest pain, oxygen level is improving Acute respiratory distress with increased respiratory rate , anxiety, improving and resolved was tried nonrebreather, and high flow, later is on 10 L oxygen, respiratory rate up to 26, i Continue tapering downoxygen Continue Ativan for anxiety if needed anxiety episodes, resolved, will follow up, Ativan as needed Chest pain with history of CAD, which helped with nitro, Angina likely related to a demand ischemia type situation, no significant EKG changes or troponin elevations. Anemia, hemoglobin improved after transfusion Healthcare-associated pneumonia: Developed overnight 01/02. 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 Given his worsening pneumonia is a very plausible explanation for his new hypoxia, and PE clinical probability low to moderate Possible fluid overload with fine crackles bilateral lung, 2 days ago, has been on lasix, continue Lasix, follow-up renal function Hypotension: Resolved CLL: On no current treatment this time. Possible acute blood loss anemia, possible related to GI, hemoglobin has been stable at 10, hold Celebrex, subcu heparin, antiplatelets. Continue Protonix GI input appreciated Severe protein-calorie malnutrition: Likely related to his overall decline Possible need rehab at discharge Patient is do not resuscitation Increase activity PTOT, delinquency prevention social worker for discharge plan DNR MedSurg today Subjective Generally doing okay, no more anxious, denies chest pain, feeling good, has been on nasal cannula oxygen, however not able to tapering down, currently still 5 L/min, his home baseline is 2 L/min Review of Systems Constitutional: Positive weakness, or fatigue and anxious, Respiratory: no labored breathing, however no wheezing, or dyspnea on exertion Cardiac: No palpitations, Abdomen: No pain, No nausea, No vomiting, No diarrhea, Musculoskeletal: No joint pain, No muscle pain, No swelling, : No dysuria, No urinary frequency, Neurologic: No paralysis, No weakness, No numbness/tingling, Psychiatric: Obvious anxious, no depression symptoms, No anhedonism, Heme: No abnormal bleeding/bruising, No clotting problems, Skin: No rash, No itch, No new/changing skin lesions, Physical Exam Vital Signs (Past 24 Hours): Last Vital Signs Temp 36.4 C 01/06/19 11:24 Pulse 85 01/06/19 14:53 Resp 30 H 01/06/19 14:53 BP 101/61 01/06/19 11:24 Pulse Ox 93 01/06/19 14:53 Physical Exam: General Appearance: Thin, frail, WD/WN, no distress, laceration, smiling, Eyes: normal inspection, PERRL, EOMI, sclerae normal ENT: normal ENT inspection, hearing grossly normal, pharynx normal Neck: supple, no adenopathy, thyroid normal, no JVD, no carotid bruits, trachea midline Respiratory/Chest: Decreased breath sounds, no respiratory distress, no rales, wheezing Cardiovascular: regular rate, tachycardia, rhythm, no JVD, no murmur Abdomen: normal bowel sounds, non tender, soft, no organomegaly, Extremities: normal range of motion, non-tender, normal inspection, no pedal edema, no calf tenderness, normal capillary refill, pelvis stable, Neurologic/Psychiatric: ribbon blocker II-XII nml as tested, no motor/sensory deficits, alert, normal mood/affect, oriented x 3 Skin: normal color, warm/dry, no rash Lymphatic: no adenopathy Results & Data Laboratory Results Laboratory Results - last 24 hr 01/05/19 01/06/19 01/06/19 14:52 05:56 05:56 WBC 17.00 H RBC 3.88 L Hgb 10.0 L Hct 32.4 L MCV 83.5 MCH 25.8 MCHC 30.9 L RDW Std Deviation 56.0 H RDW Coeff of Pramod 18.3 H Plt Count 325 MPV 10.2 Absolute Nucleated RBC 0.03 H Nucleated RBC % (auto) 0.2 Sodium 140 Potassium 3.6 Chloride 100 Carbon Dioxide 36 H Anion Gap 5.0 BUN 10 Creatinine 1.08 Est Cr Clr Drug Dosing 56.1 Est GFR ( Amer) 79.1 Est GFR (Non-Af Amer) 68.2 BUN/Creatinine Ratio 9.4 L Glucose 75 Calcium 8.6 Phosphorus 3.3 Magnesium 2.0
[2019-01-06] MEDS: FUROSEMIDE 20 MG TAB PO SCH (16:30)
[2019-01-06] MEDS: PRAVASTATIN SOD 40 MG TAB PO SCH (20:17)
[2019-01-06] MEDS: LORazepam 0.5 MG TAB PO PRN (23:30)
[2019-01-07] MEDS: ALBUT/IPRATROP 3MG/0.5MG NEB 3 ML VIAL INH SCH ×4 (07:07→19:29)
[2019-01-07] MEDS: BUDESONIDE 0.5 MG/2 ML VIAL (PULMICORT) NEB SCH ×2 (07:07→19:29)
[2019-01-07] MEDS: PIPERACILLIN/TAZOBACTAM 3.375 GM in DEXTROSE 5% 100 ML IV SCH ×2 (08:39→16:20)
[2019-01-07] MEDS: LORazepam 0.5 MG TAB PO PRN ×3 (08:39→19:56)
[2019-01-07] MEDS: FUROSEMIDE 20 MG TAB PO SCH (08:40)
[2019-01-07] MEDS: predniSONE 20 MG TAB PO SCH (08:40)
[2019-01-07] MEDS: PARoxetine HCl 10 MG TAB PO SCH (08:41)
[2019-01-07] MEDS: MONTELUKAST SODIUM 10 MG TABLET PO SCH (08:41)
[2019-01-07] MEDS: PANTOprazole 40 MG TAB PO SCH ×2 (08:41→19:57)
[2019-01-07] MEDS: FEXOFENADINE HCL 180 MG TAB PO SCH (08:41)
[2019-01-07] MEDS: METOPROLOL TARTRATE 25 MG TAB PO SCH (08:42)
[2019-01-07 09:26] LABS: BUN Creatinine Ratio 9.9 (10-20); Calcium 8.7 mg/dl (8.5-10.1); Creatinine Clr Calc Pharmacy 64.4 ml/min; Est GFR (African American) 93.5; Est GFR (Non-African American) 80.7; Magnesium 2.1 mg/dl (1.8-2.4); Potassium 3.4 mmol/L (3.5-5.1)
[2019-01-07] MEDS: CeleBREX 200 MG CAP PO SCH (10:36)
[2019-01-07] MEDS: ISOSORBIDE MONO EXTENDED REL 30 MG TABCR PO SCH (10:37)
[2019-01-07] MEDS: CLOPIDOGREL BISULFATE 75 MG TAB PO SCH (10:37)
[2019-01-07] MEDS: METOPROLOL SUCC 50MG EXT REL TAB PO SCH (10:39)
[2019-01-07] MEDS: NITROGLYCERIN SL 0.4 MG/TAB TAB SL PRN (13:46)
[2019-01-07] MEDS ORDERED: LORazepam 0.5 MG TAB PO STA (15:15)
--- NOTE | 2019-01-07 18:34 | Hospitalist Progress Note ---
Date of Service January 07, 2019 Assessment & Plan (1) Healthcare-associated pneumonia: (2) Hypotension: (3) Dyspnea on exertion: (4) Chest pain: (5) Acute on chronic respiratory failure with hypoxia: (6) Silicosis: (7) CLL (chronic lymphocytic leukemia): (8) CAD (coronary artery disease): (9) History of [place] (myocardial infarction): (10) Pulmonary artery hypertension: (11) DVT prophylaxis: (12) Acute blood loss anemia: (13) Severe protein-calorie malnutrition: (14) Discharge planning issues: (15) Anxiety: 77-year-old male December 30, 2018 because of chest pain with history of CAD, no more chest pain, oxygen level is improving Acute respiratory distress with increased respiratory rate , anxiety, improving New episode this afternoon, gave him a lot of reassurance and convincing for anxiety, currently help with Ativan Continue tapering downoxygen Continue Ativan for anxiety if needed Chest pain with history of CAD, which helped with nitro, Angina likely related to a demand ischemia type situation, no significant EKG changes or troponin elevations. Anemia, hemoglobin improved after transfusion Healthcare-associated pneumonia: Developed overnight 01/02. 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 Given his worsening pneumonia is a very plausible explanation for his new hypoxia, and PE clinical probability low to moderate Possible fluid overload with fine crackles bilateral lung, 3 days ago, Today has right lower lung fine crackles Will continue Lasix Hypotension: Resolved CLL: On no current treatment this time. Possible acute blood loss anemia, possible related to GI, hemoglobin has been stable at 10, hold Celebrex, subcu heparin, antiplatelets. Continue Protonix GI input appreciated Severe protein-calorie malnutrition: Likely related to his overall decline Possible need rehab at discharge Patient is do not resuscitation Increase activity PTOT, rigging worker for discharge plan DNR Planning for rehab Subjective This morning when I seen him generally doing okay, no more anxious, However in the afternoon patient was report anxious again with chest pain, Ativan and nitro was given Review of Systems Constitutional: Positive weakness, or fatigue and anxious, Respiratory: no labored breathing, however no wheezing, or dyspnea on exertion Cardiac: No palpitations, Abdomen: No pain, No nausea, No vomiting, No diarrhea, Musculoskeletal: No joint pain, No muscle pain, No swelling, : No dysuria, No urinary frequency, Neurologic: No paralysis, No weakness, No numbness/tingling, Psychiatric: Obvious anxious, no depression symptoms, No anhedonism, Heme: No abnormal bleeding/bruising, No clotting problems, Skin: No rash, No itch, No new/changing skin lesions, Physical Exam Vital Signs (Past 24 Hours): Last Vital Signs Temp 36.6 C 01/07/19 15:00 Pulse 97 H 01/07/19 15:07 Resp 18 01/07/19 15:07 BP 100/65 01/07/19 15:00 Pulse Ox 91 01/07/19 15:07 Physical Exam: General Appearance: Thin, frail, WD/WN, no distress, Eyes: normal inspection, PERRL, EOMI, sclerae normal ENT: normal ENT inspection, hearing grossly normal, pharynx normal Neck: supple, no adenopathy, thyroid normal, no JVD, no carotid bruits, trachea midline Respiratory/Chest: Decreased breath sounds, no respiratory distress, right lower lung fine crackles, no rales, wheezing Cardiovascular: regular rate, tachycardia, rhythm, no JVD, no murmur Abdomen: normal bowel sounds, non tender, soft, no organomegaly, Extremities: normal range of motion, non-tender, normal inspection, no pedal edema, no calf tenderness, normal capillary refill, pelvis stable, 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
[2019-01-07] MEDS: PRAVASTATIN SOD 40 MG TAB PO SCH (19:57)
[2019-01-08] MEDS: PIPERACILLIN/TAZOBACTAM 3.375 GM in DEXTROSE 5% 100 ML IV SCH ×3 (00:13→17:01)
[2019-01-08] MEDS: LORazepam 0.5 MG TAB PO PRN ×5 (03:19→23:59)
[2019-01-08 07:17] LABS: BUN Creatinine Ratio 10.2 (10-20); Calcium 8.2 mg/dl (8.5-10.1); Creatinine Clr Calc Pharmacy 61.2 ml/min; Est GFR (African American) 87.8; Est GFR (Non-African American) 75.8; Potassium 3.3 mmol/L (3.5-5.1)
[2019-01-08] MEDS: BUDESONIDE 0.5 MG/2 ML VIAL (PULMICORT) NEB SCH ×2 (07:27→18:57)
[2019-01-08] MEDS: ALBUT/IPRATROP 3MG/0.5MG NEB 3 ML VIAL INH SCH ×4 (07:27→18:56)
[2019-01-08] MEDS ORDERED: POTASSIUM CHLORIDE 20 MEQ TABCR PO ONE (08:30)
[2019-01-08] MEDS: PANTOprazole 40 MG TAB PO SCH ×2 (08:56→21:32)
[2019-01-08] MEDS: predniSONE 20 MG TAB PO SCH (08:56)
[2019-01-08] MEDS: MONTELUKAST SODIUM 10 MG TABLET PO SCH (08:56)
[2019-01-08] MEDS: PARoxetine HCl 10 MG TAB PO SCH (08:57)
[2019-01-08] MEDS: FUROSEMIDE 20 MG TAB PO SCH (08:57)
[2019-01-08] MEDS: ISOSORBIDE MONO EXTENDED REL 30 MG TABCR PO SCH (08:57)
[2019-01-08] MEDS: CeleBREX 200 MG CAP PO SCH (08:57)
[2019-01-08] MEDS: CLOPIDOGREL BISULFATE 75 MG TAB PO SCH (08:58)
[2019-01-08] MEDS: FEXOFENADINE HCL 180 MG TAB PO SCH (08:58)
[2019-01-08] MEDS: METOPROLOL SUCC 50MG EXT REL TAB PO SCH (08:58)
[2019-01-08] MEDS: PARoxetine HCl 20 MG TAB PO SCH (11:07)
--- NOTE | 2019-01-08 18:19 | Discharge Summary ---
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 He took 3 nitroglycerin sublingual's and was given 324 mg aspirin by EMS that only partially relieved his pain. He has had progressively worsening shortness of breath and chest pain over the past 2 years due to progression of his interstitial lung disease/silicosis, and has become s everely deconditioned and developed symptoms with minimal exertion. He has had progressive weight loss and generalized fatigue over the past 2 years as well due to decreased oral intake due to lack of appetite. Principal Diagnosis 35 Discharge Data Allergies Allergy/AdvReac Type Severity Reaction Status Date / Time levofloxacin AdvReac Intermediate swelling Verified 12/30/18 21:57 zolpidem AdvReac Intermediate Hallucinati Verified 12/30/18 21:57 ons. Consultations 12/30/18 23:03 ED Decision to Admit Stat 12/31/18 00:44 Consult Case Management - Discharge Planning Routine 01/01/19 11:10 Consult Gastroenterology Routine Ordered Studies 01/02/19 08:09 CT angio chest PE protocol Stat 01/02/19 10:57 US venous doppler LE Stat Hospital Course (1) Healthcare-associated pneumonia: (2) Hypotension: (3) Dyspnea on exertion: (4) Chest pain: (5) Acute on chronic respiratory failure with hypoxia: (6) Silicosis: (7) CLL (chronic lymphocytic leukemia): (8) CAD (coronary artery disease): (9) History of UT (myocardial infarction): (10) Pulmonary artery hypertension: (11) DVT prophylaxis: (12) Acute blood loss anemia: (13) Severe protein-calorie malnutrition: (14) Discharge planning issues: (15) Anxiety: 77-year-old male December 30, 2018 because of chest pain with history of CAD, no more chest pain, oxygen level is improving Acute respiratory distress with increased respiratory rate , anxiety, improving New episode this afternoon, gave him a lot of reassurance and convincing for anxiety, currently help with Ativan Continue tapering down oxygen, however still need to 5-6 L Continue Ativan for anxiety if needed Chest pain with history of CAD, which helped with nitro, Angina likely related to a demand ischemia type situation, no significant EKG changes or troponin elevations. Also possible from the panic attack, which helped with Ativan, I increased Paxil from 10 mg to 20 mg for better of panic attack control Anemia, hemoglobin improved after transfusion Healthcare-associated pneumonia: Developed overnight 01/02. 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 Given his worsening pneumonia is a very plausible explanation for his new hypoxia, and PE clinical probability low to moderate Possible fluid overload with fine crackles bilateral lung, 3 days ago, still have has right lower lung fine crackles continue Lasix, however need to follow-up with primary care physician for the labs of BMP, and magnesium Hypotension: Resolved CLL: On no current treatment this time. Possible acute blood loss anemia, possible related to GI, hemoglobin has been stable at 10, hold Celebrex, subcu heparin, antiplatelets. Continue Protonix GI input appreciated Severe protein-calorie malnutrition: Likely related to his overall decline Possible need rehab at discharge Patient is do not resuscitation Increase activity PTOT, psychiatric social worker for discharge plan DNR Subjective upon discharge generally continue doing okay, no more anxious, Seems to have more insight of what happened about palliative Review of Systems at discharge Constitutional: Positive weakness, or fatigue and anxious, Respiratory: no labored breathing, however no wheezing, or dyspnea on exertion Cardiac: No palpitations, Abdomen: No pain, No nausea, No vomiting, No diarrhea, Musculoskeletal: No joint pain, No muscle pain, No swelling, : No dysuria, No urinary frequency, Neurologic: No paralysis, No weakness, No numbness/tingling, Heme: No abnormal bleeding/bruising, No clotting problems, Skin: No rash, No itch, No new/changing skin lesions, Physical Exam at discharge General Appearance: Thin, frail, WD/WN, no distress, Eyes: normal inspection, PERRL, EOMI, sclerae normal ENT: normal ENT inspection, hearing grossly normal, pharynx normal Neck: supple, no adenopathy, thyroid normal, no JVD, no carotid bruits, trachea midline Respiratory/Chest: Decreased breath sounds, no respiratory distress, right lower lung fine crackles, no rales, wheezing Cardiovascular: regular rate, tachycardia, rhythm, no JVD, no murmur Abdomen: normal bowel sounds, non tender, soft, no organomegaly, Extremities: normal range of motion, non-tender, normal inspection, no pedal edema, no calf tenderness, normal capillary refill, pelvis stable, 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, no motor/sensory deficits, alert, normal mood/affect, oriented x 3 Skin: normal color, warm/dry, no rash Lymphatic: no adenopathy Lab data at discharge: Laboratory Results - last 24 hr 01/08/19 06:09 Sodium 139 Potassium 3.3 L Chloride 99 Carbon Dioxide 34 H Anion Gap 6.0 BUN 10 Creatinine 0.99 Est Cr Clr Drug Dosing 61.2 Est GFR ( Amer) 87.8 Est GFR (Non-Af Amer) 75.8 BUN/Creatinine Ratio 10.2 Glucose 74 Calcium 8.2 L Magnesium 2.0 Microbiology 01/02/19 08:34 Blood Blood Culture - Final No growth 01/02/19 08:21 Blood Blood Culture - Final No growth Total Time Total Time Spent Total Time Spent (In Minutes): 35 Discharge Plan Discharge Items Patient Disposition: Transfer Jail Fac Reason For Visit: CHEST PAIN Discharge Diagnosis: hypoxia, panic attack Condition: Fair Discharge Goals: Decrease discomfort, Diagnostic testing, Improve disease control, Learn about illness and Therapeutic intervention Activity: As commented below Non-emergency contact: Primary Care Provider Call non-emergency contact if: you have any medication questions Follow-up/Referrals: Lenora Jefferson DO [Primary Care Provider] - 01/05/19 9:40 am (Please, follow up with Dr. Jefferson on FridayJanuary 05 at 9:40 am. *If you need to change this appointment, call the office at [phone].) Diet: Heart Healthy and Low Sodium (2gm) Fluids: 1500ml (6 cups) Addtl Provider Instructions: it was there possible computer lost Prescriptions: New paroxetine HCl 10 mg Tablet 20 mg PO DAILY Qty: 30 RF: 0 lorazepam 0.5 mg Tablet 0.5 mg PO Q4 PRN (Reason: anxiety) 3 Days Qty: 10 RF: 0 budesonide 0.5 mg/2 mL Suspension For Nebulization 0.5 mg NEB BIDR 30 Days Qty: 1 RF: 0 furosemide 20 mg Tablet 20 mg PO QAM 7 Days Qty: 7 RF: 0 Continued celecoxib 200 mg Capsule 200 mg PO DAILY RF: 0 prednisone 10 mg Tablet 10 mg PO DAILY RF: 0 ipratropium-albuterol 0.5 mg-3 mg(2.5 mg base)/3 mL Solution For Nebulization 3 ml INHALATION QID RF: 0 isosorbide mononitrate 30 mg Tablet Extended Release 24 Hr 30 mg PO DAILY RF: 0 metoprolol succinate 100 mg Tablet Extended Release 24 Hr 100 mg PO DAILY RF: 0 clopidogrel [Plavix] 75 mg Tablet 75 mg PO DAILY RF: 0 fexofenadine 180 mg Tablet 180 mg PO DAILY RF: 0 pravastatin 80 mg Tablet 80 mg PO DAILY RF: 0 pantoprazole 40 mg Tablet,Delayed Release (Dr/Ec) 40 mg PO BID RF: 0 nitroglycerin [Nitrostat] 0.4 mg Tablet, Sublingual 0.4 mg Sublingual DIRECTED PRN (Reason: Chest Pain) RF: 0 montelukast 10 mg Tablet 10 mg PO DAILY RF: 0 Symbicort 160-4.5 mcg/actuation Hfa Aerosol Inhaler 2 puff INHALATION BID RF: 0 Combivent Respimat 20-100 mcg/actuation Mist 1 puff INHALATION QID RF: 0 Discontinued paroxetine HCl [Paxil] 10 mg Tablet 10 mg PO DAILY RF: 0 lorazepam 0.5 mg Tablet 0.5 mg PO DAILY PRN (Reason: Anxiety) RF: 0 Stand-Alone Forms: [facility] Admission Data Admit Date/Time: 12/30/18 23:59 Attending Provider: Miko Garnica Admit Provider: Hu Swenson Primary Care Provider: Lenora Jefferson Other Providers: Ruddy Flores ; Hu Swenson ; Luis Alberto Jenkins Service: Medical
[2019-01-08] MEDS: PRAVASTATIN SOD 40 MG TAB PO SCH (21:32)
[2019-01-09] MEDS: PIPERACILLIN/TAZOBACTAM 3.375 GM in DEXTROSE 5% 100 ML IV SCH ×2 (00:08→08:03)
[2019-01-09 07:06] LABS: Hematocrit (blood only) 31.3 % (42-52); Hemoglobin 9.5 g/dL (14.0-18.0); Mean Corpuscular Hgb Conc 30.4 g/dL (32-36); Mean Corpuscular Volume 83.7 fL (80-100); Platelet Count 336 K/uL (130-400); RDW Coefficient of Variation 18.2 % (11.5-14.5); RDW Standard Deviation 56.1 fL (36.4-46.3); Red Blood Count 3.74 M/uL (4.7-6.1); White Blood Count 13.64 K/uL (4.8-10.8)
[2019-01-09] MEDS: BUDESONIDE 0.5 MG/2 ML VIAL (PULMICORT) NEB SCH (07:36)
[2019-01-09] MEDS: ALBUT/IPRATROP 3MG/0.5MG NEB 3 ML VIAL INH SCH ×2 (07:36→11:27)
--- NOTE | 2019-01-09 08:04 | Hospitalist Progress Note ---
Date of Service January 08, 2019 Assessment & Plan (1) Healthcare-associated pneumonia: (2) Hypotension: (3) Dyspnea on exertion: (4) Chest pain: (5) Acute on chronic respiratory failure with hypoxia: (6) Silicosis: (7) CLL (chronic lymphocytic leukemia): (8) CAD (coronary artery disease): (9) History of UT (myocardial infarction): (10) Pulmonary artery hypertension: (11) DVT prophylaxis: (12) Acute blood loss anemia: (13) Severe protein-calorie malnutrition: (14) Discharge planning issues: (15) Anxiety: 77-year-old male December 30, 2018 because of chest pain with history of CAD, no more chest pain, oxygen level is improving Acute respiratory distress with increased respiratory rate , anxiety, improving New episode this afternoon, gave him a lot of reassurance and convincing for anxiety, currently help with Ativan Continue tapering down oxygen, however still need to 5-6 L Continue Ativan for anxiety if needed Chest pain with history of CAD, which helped with nitro, Angina likely related to a demand ischemia type situation, no significant EKG changes or troponin elevations. Also possible from the panic attack, which helped with Ativan, I increased Paxil from 10 mg to 20 mg for better of panic attack control Anemia, hemoglobin improved after transfusion Healthcare-associated pneumonia: Developed overnight 01/02. 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 Given his worsening pneumonia is a very plausible explanation for his new hypoxia, and PE clinical probability low to moderate Possible fluid overload with fine crackles bilateral lung, 3 days ago, still have has right lower lung fine crackles continue Lasix, however need to follow-up with primary care physician for the labs of BMP, and magnesium Hypotension: Resolved CLL: On no current treatment this time. Possible acute blood loss anemia, possible related to GI, hemoglobin has been stable at 10, hold Celebrex, subcu heparin, antiplatelets. Continue Protonix GI input appreciated Severe protein-calorie malnutrition: Likely related to his overall decline Possible need rehab at discharge Patient is do not resuscitation Increase activity PTOT, drug abuse social worker for discharge plan DNR Subjective This morning when I seen him generally doing okay, no more anxious, no chest pain, Review of Systems Constitutional: Positive weakness, or fatigue and anxious, Respiratory: no labored breathing, however no wheezing, or dyspnea on exertion Cardiac: No palpitations, Abdomen: No pain, No nausea, No vomiting, No diarrhea, Musculoskeletal: No joint pain, No muscle pain, No swelling, : No dysuria, No urinary frequency, Neurologic: No paralysis, No weakness, No numbness/tingling, Psychiatric: Obvious anxious, no depression symptoms, No anhedonism, Heme: No abnormal bleeding/bruising, No clotting problems, Skin: No rash, No itch, No new/changing skin lesions, Physical Exam Vital Signs (Past 24 Hours): Last Vital Signs Temp 36.7 C 01/09/19 07:39 Pulse 87 01/09/19 07:39 Resp 18 01/09/19 07:39 BP 116/72 01/09/19 07:39 Pulse Ox 98 01/09/19 07:39 Physical Exam: General Appearance: Thin, frail, WD/WN, no distress, pleasant , conersational Eyes: normal inspection, PERRL, EOMI, sclerae normal ENT: normal ENT inspection, hearing grossly normal, pharynx normal Neck: supple, no adenopathy, thyroid normal, no JVD, no carotid bruits, trachea midline Respiratory/Chest: Decreased breath sounds, no respiratory distress, n no rales, wheezing Cardiovascular: regular rate, tachycardia, rhythm, no JVD, no murmur Abdomen: normal bowel sounds, non tender, soft, no organomegaly, Extremities: normal range of motion, non-tender, normal inspection, no pedal edema, no calf tenderness, normal capillary refill, pelvis stable, 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
[2019-01-09] MEDS: FEXOFENADINE HCL 180 MG TAB PO SCH (08:06)
[2019-01-09] MEDS: CeleBREX 200 MG CAP PO SCH (08:06)
[2019-01-09] MEDS: FUROSEMIDE 20 MG TAB PO SCH (08:07)
[2019-01-09] MEDS: ISOSORBIDE MONO EXTENDED REL 30 MG TABCR PO SCH (08:07)
[2019-01-09] MEDS: predniSONE 20 MG TAB PO SCH (08:08)
[2019-01-09] MEDS: CLOPIDOGREL BISULFATE 75 MG TAB PO SCH (08:08)
[2019-01-09] MEDS: PARoxetine HCl 20 MG TAB PO SCH (08:08)
[2019-01-09] MEDS: METOPROLOL SUCC 50MG EXT REL TAB PO SCH (08:09)
[2019-01-09] MEDS: MONTELUKAST SODIUM 10 MG TABLET PO SCH (08:09)
[2019-01-09] MEDS: PANTOprazole 40 MG TAB PO SCH (09:41)
== END 2019-01-09 14:15 | DRG 871 ==
LOC: ED 21:23 → 2E 23:59 → SUATTDRO 23:59 → 2E 12-31 00:27 → 4W 01-06 15:22